=== PATIENT | male | born 1980 | race Caucasian/White ===

== ENCOUNTER → 2017-07-25 07:25 | Outpatient (CLI) | payer OTHER, SELFPAY ==
--- NOTE | 2017-07-25 07:29 | CT_ITS ---
STUDY: CT ABDOMEN WITH CONTRAST REASON FOR EXAM: Male, 37 years old. Epigastric pain. Umbilical hernia. RADIATION DOSAGE (If Supplied By Facility): CTDIvol = ( 15.61 ) mGy, DLP = ( 786.98 ) mGycm TECHNIQUE: Transaxial images were obtained post I.V. administration of 100 ml of Isovue 300 contrast, and with oral contrast. Sagittal and coronal images were reconstructed. Individualized dose optimization techniques were used for this CT. COMPARISON: None. FINDINGS: The visualized lung bases are unremarkable. The visualized portions of the heart are within normal limits. Normal liver. Normal gallbladder and extrahepatic biliary system. Normal spleen. Normal pancreas. Normal bilateral adrenal glands. Normal right kidney. Normal left kidney. There is a small hiatal hernia. Normal small intestine. Normal colon. The appendix is visualized and appears normal. Normal abdominal aorta. Normal inferior vena cava. Normal retroperitoneum. There is a small umbilical hernia containing fat. Marked degree of the space narrowing at the L4-L5 level CT/Abdomen WITH IV Contrast IMPRESSION: Small umbilical hernia containing fat. Electronically Signed: Tutu Hansen MD at 11:20 EDT Tel [phone], Service support ,
== END ==
PROVIDERS: Family Provider Family Medicine; PCP Family Medicine; Visit Provider Surgery
DX: K42.9 Umbilical hernia without obstruction or gangrene (principal)
CPT/HCPCS: 74160; Q9967

== ENCOUNTER → 2018-04-29 15:20 | Outpatient (CLI) | payer OTHER, SELFPAY ==
[2017-07-22 08:40] VITALS: BMI 29.9
[2018-04-29 19:32] LABS: Vitamin D,25 Hydroxy 19.4 ng/mL (29.95-100.01)
[2018-05-01 16:28] LABS: Endomysial Antibody IgA Negative (Negative); Immunoglobulin A 236 mg/dL (90-386); t-Transglutaminase IgA 2 U/mL (0-3)
--- OUTSIDE RECORDS SUMMARY | 2018-08-01 04:02 | XMS RPT_ITS ---
:1980 Author Organization OHIP Care Team Providers Name Role Phone Dami Dc Attending Unavailable Dami Dc Referring Unavailable Anna Mera Primary Care Unavailable Noe Lee Attending Unavailable Anna Mera Referring Unavailable Anna Mera Primary Care Unavailable Noe Lee Attending Unavailable Noe Lee Referring Unavailable Anna Mera Primary Care Unavailable PROBLEMS PROBLEMS DATE TYPE CONDITION / CODE ATTENDING STATUS SOURCE 07/22/2017 Unknown K42.9 - Umbilical Noe Lee Active [place] hernia without Community obstruction or Hospital gangrene / Repository K42.9(ICD-10) 07/22/2017 Unknown K43.2 - Noe Lee Active [place] Incisional hernia Community without Hospital obstruction or Repository gangrene / K43.2(ICD-10) 07/22/2017 Unknown R10.13 - Noe Lee Active [place] Epigastric pain / Community R10.13(ICD-10) Hospital Repository PROCEDURES PROCEDURES No Procedure Records FoundRESULTS RESULTS VITAMIN D,25 HYDROXY Collected: 04/29/2018 Status: F Source: [place]IL 3:27 PM [facility] REPOSITORY TYPE CODE TESTS RESULT OUT OF REFERENCE UNITS RANGE LAB L506.1000 29.95-100.01 ng/mL Low Vitamin D 19.4 25-OH Result Comment: Vitamin D 25(OH) Status Range Deficiency <20 ng/mL (50nmol/L) Insuffciency 20 - 30 ng/mL (50 - 75 nmol/L) Sufficiency 30 - 100 ng/mL (75 - 250 nmol/L) Toxicity >100 ng/mL (>250 nmol/L) Performed By: #### L506.1000 #### [facility] [address] [place], [place], [address] CELIAC DISEASE Collected: 04/29/2018 Status: F Source: NEIL PROFILE 3:27 PM [facility] REPOSITORY TYPE CODE TESTS RESULT OUT OF RANGE REFERENCE UNITS LAB L3200.1400 90-386 mg/dL Normal IMMUNO A 236 Result Comment: Performed at: - [facility] [id number] Bricklayer'S Assistant: Dami Mahmood PhD, Phone: [phone] LAB L3207.4745 0-3 U/mL Normal tTG IGA 2 Result Comment: Negative 0 - 3 Weak Positive 4 - 10 Positive >10 Tissue Transglutaminase (tTG) has been identified as the endomysial antigen. Studies have demonstr- ated that endomysial IgA antibodies have over 99% specificity for gluten sensitive enteropathy. LAB L3410.9169 Negative Normal ENDOMYSIAL IGA Negative Result Comment: Serum is slightly lipemic. Performed By: #### L3410.1050 #### [facility] (refer to report for specific site) refer to report for address and phone number ABDOMEN WITH IV Observed: 07/25/2017 Status: F Source: [place]IL CONTRAST 7:29 AM [facility] REPOSITORY [facility] Services [address] [place] [address] Abdomen WITH IV Contrast MR#: [id number] Acct: [id number] Name: WILDER GIBSON Rep #: [id number] : 1980 M 37 From: Tutu Hansen MD PCP: Anna Mera MD Status: REG CLI Study: Abdomen WITH IV Contrast Date of Exam: 07/25/17 Exam# [id number] Ordering Dr: Noe Lee MD STUDY: CT ABDOMEN WITH CONTRAST REASON FOR EXAM: Male, 37 years old. Epigastric pain. Umbilical hernia. RADIATION DOSAGE (If Supplied By Facility): CTDIvol = ( 15.61 ) mGy, DLP = ( 786.98 ) mGycm TECHNIQUE: Transaxial images were obtained post I.V. administration of 100 ml of Isovue 300 contrast, and with oral contrast. Sagittal and coronal images were reconstructed. Individualized dose optimization techniques were used for this CT. COMPARISON: None. FINDINGS: The visualized lung bases are unremarkable. The visualized portions of the heart are within normal limits. Normal liver. Normal gallbladder and extrahepatic biliary system. Normal spleen. Normal pancreas. Normal bilateral adrenal glands. Normal right kidney. Normal left kidney. There is a small hiatal hernia. Normal small intestine. Normal colon. The appendix is visualized and appears normal. Normal abdominal aorta. Normal inferior vena cava. Normal retroperitoneum. There is a small umbilical hernia containing fat. Marked degree of the space narrowing at the L4-L5 level CT/Abdomen WITH IV Contrast IMPRESSION: Small umbilical hernia containing fat. Electronically Signed: Tutu Hansen MD at 11:20 EDT Tel [phone], Service support , CC: Anna Mera MD; Noe Lee MD Ross Carrier Driver: Signed SURGERY VISIT REPORT Observed: 07/22/2017 Status: F Source: [place] 9:[address] 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 Is patient in pain?: Yes Allergies oxycodone HCl [From Percocet] Allergy (Verified 07/22/17 08:41) Other Medications ergocalciferol (vitamin D2) 2,000 unit tablet 2,000 unit PO QDAY 07/22/17 [History Confirmed 07/22/17] esomeprazole magnesium 20 mg capsule,delayed release 20 mg PO QDAY cap 07/22/17 [History Confirmed 07/22/17] mometasone-formoterol HFA 100 mcg-5 mcg/actuation aerosol inhaler 2 puff INHALATION BID 07/22/17 [History Confirmed 07/22/17] PFSH Medical History Asthma (Acute) Celiac disease (Acute) GERD (gastroesophageal reflux disease) (Acute) Surgical History S/P ACL repair (Acute) S/P MCL repair (Acute) Status post appendectomy (Acute) Family History Father Diabetes Mother Asthma Social History Smoking Status: Never smoker HPI HPI HPI: WILDER GIBSON, is a 37 M who presents to the office today for concern about a possible ventral incisional hernia at the umbilicus. He is been having 3 week history of a burning pain superior to the umbilicus as well as at the umbilicus. When he lies on his belly he feels a bulge. He points to the umbilicus but he also points to an area 5-6 cm superior to the umbilicus. 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 He denies nausea or vomiting or fever or chills or sweats. He recalls that he has had a previous laparoscopic appendectomy in approximately year 1999. He denies any recent trauma. He does chew tobacco. He has not had any imaging studies. He denies bright red blood per rectum or melena. ROS General General: Yes weight change; no appetite, fatigue, colon cancer, breast cancer or weakness HEENT HEENT: No difficulty swallowing, eye injury, eye surgery, swollen glands or hoarseness Endo Endocrine: No thyroid disease, diabetes mellitus, thyroid cancer, Hair loss, heat intolerance or cold intolerance Skin Skin: No rash or changing moles Breast Breast: No left breast lump, right breast lump, nipple discharge, breast pain, abnormal mammogram, abnormal US or breast enlargement Musc Musculoskeletal: No back problems, arthritis, rheumatoid arthritis, gout or joint pain Cardio Cardiovascular: No murmur, pacemaker, heart disease, atrial fibrillation, high blood pressure, heart attack, heart stent, palpitations, shortness of breat with exertion or chest pain Psych Psychiatric: No depression, anxiety or hearing voices Resp Respiratory: Yes shortness of breath, No sleep apnea, Yes cough, No COPD, Yes asthma, No emphysema, No wheezing Gastro Gastrointestinal: Yes abdominal pain, No nausea or vomiting, No diarrhea, No constipation, No blood in stool, Yes acid reflux, No hemorrhoids, No ulcers, No gallbladder problem, No black,tarry stools Arpit Hematologic: No blood thinners, No blood disorders, No bleeding, No anemia, No blood clots Neuro Neurologic: No system reviewed and no additional complaints, except as docu, No as per HPI, No abnormal walking, No abnormal hearing, No abnormal movements, No abnormal speech, No behavioral changes, No burning sensations, No confusion, No seizure-like activity, No unsteadiness, No dizziness, No localized weakness, No frequent falls, No headache(s), No lack of coordination, No loss of vision, No memory loss, No numbness, No other visual disturbances, No radiating pain, No restless legs, No sensory deficit, No fainting, No tingling, No tremor(s), No weakness, No other Exam Const General: cooperative, healthy appearing Nutritional Appearance: average body habitus Orientation: alert, oriented x3 HENMT Head: normal to inspection Eyes General: appearance normal, both eyes and all related structures Neck Neck: normal visual inspection Chest Chest palpation AND inspection: normal inspection of the chest Breast Palpation: No nipple discharge Resp Effort AND Inspection: normal respiratory effort Auscultation: clear to auscultation bilaterally Cardio Rate: regular rate Rhythm: regular rhythm Heart Sounds: no murmurs GI Palpation: soft, no hepatosplenomegaly Auscultation: normal bowel sounds Other: Small ventral incisional hernia at the superior aspect of the umbilicus. No erythema. Mild tenderness to deep palpation. Tenderness is noted approximately 5 cm superior to the umbilicus. I am not detecting a mass or bulge in that area. Bowel sounds are present and normal. Musc Cervical Spine: normal cervical lordosis Skin General: no rashes or lesions noted Neuro Cranial Nerves: CN's II-XI intact bilaterally Extrem General: no calf tenderness Psych Affect: normal affect Assessment AND Plan Problems 1. Incisional hernia, without obstruction or gangrene K43.2; K43.91 2. Epigastric pain R10.13 Plan Much of the patient's symptoms seem to be consistent with this comfort and a ventral incisional hernia at the superior aspect of his umbilicus. The patient however complains of tenderness superior to that area. He feels a fullness when he lies prone. I am recommending a CT scan of the abdomen. If that is unremarkable then I would recommend a incisional umbilical herniorrhaphy with mesh. He is aware of the technique, benefits, risks, alternatives. He has had an opportunity to ask and have questions answered. We will proceed with a CT and we will tentatively schedule for his ventral incisional herniorrhaphy with mesh. I appreciate the opportunity of assisting with surgical care Cc: Dr. Samaria Lee M.D., F.A.C.S. Orders Orders: Medications Discontinued: hydrocodone-acetaminophen 5-325 mg Discon1 - 2 tabs PO Q4H PRN PRN Pain Duyen Hood tinued Reason: Order Completed Coding Level of Care Code Off vis,new,level 3 Diagnoses Incisional hernia, without obstruction or gangrene K43.2; K43.91 Obstruction and gangrene presence: without obstruction or gangrene Epigastric pain R10.13 Abdominal location: epigastric 07/22/17 0919 <Electronically signed by Noe Lee MD> Date Noe Diaz Signature: Date (if applicable) CC: Anna Mera MD ALLERGIES ALLERGIES DATE TYPE / CODE NAME / CODE REACTION SEVERITY SOURCE 07/22/2017 Drug oxycodone Other Unknown [facility] Allergy/416 HCl/[id number](R Hospital 664485(SNOM XNORM) Repository ED CT) ENCOUNTERS ENCOUNTERS ADMIT/DISCHARGE ACCOUNT ADMITTING ENCOUNTER LOCATION SOURCE NUMBER CLASS 04/29/2018 [id number] Ambulatory [place] 9 [facility] ing:MTLAB Repository 07/25/2017 [id number] Ambulatory [place] 7 [facility] ing:CT Repository 07/22/2017/ [id number] Ambulatory BMSBuilding:B Neil 8 9 MS.WSA [facility] Repository PAYERS PAYERS ENCOUNTER GUARANTOR PAYER SUBSCRIBER SOURCE 04/29/2018 WILDER [place] Primary WILDER Anthony Neil [id number] TR Insurance:CORESOURCEP HASTINGSDOB: [address] Number: [id number] Hospital [address]Lji: [phone] [id number] Repository [phone] () Date:0313-10-89HL [address] [place] [id number]: 04/29/2018 Secondary NOT GIVENUNK Neil Insurance:SELF PAY [facility] Number: Effective Repository Date:2018-04-29 07/25/2017 Wilder Cruz Primary Wilder Anthony Trejo [id number] Insurance:CORESOURCEP HastingsDOB: [address] Number: [id number] Hospital [address]Ydb: [phone]) [id number] Repository [phone] () Date:2172-06-61PK [address] [address]KA: 07/25/2017 Secondary NOT GIVENUNK [place] Insurance:SELF PAY [facility] Number: Effective Repository Date:2017-07-22 07/22/2017 Wilder [place] Primary Wilder Trejo [id number] Insurance:[facility] Hasseaview hospitalsDOB: [address] Number: [id number] Hospital [id number]: [phone]) [id number] Repository [phone] () Date:9586-00-75AQ [address] [place] [address]ZC: 07/22/2017 Secondary NOT GIVENUNK Neil Insurance:SELF PAY [facility] Number: Effective Repository Date:2017-07-16
== END ==
PROVIDERS: Family Provider Family Medicine; PCP Family Medicine; Referring Provider Internal Medicine Gastroenterology; Visit Provider Internal Medicine Gastroenterology
DX: K90.0 Celiac disease (principal)
CPT/HCPCS: 36415; 82306; 82784; 83516; 86255

== ENCOUNTER → 2018-12-29 | Outpatient (CLI) | payer OTHER, SELFPAY ==
[2017-07-22 08:40] VITALS: BMI 29.9
[2018-12-29 12:41] LABS: Lyme Ab Screen Interpretation REF LAB
[2018-12-29 13:47] LABS: Absolute Lymphocyte Count 1.63 X10^3/uL (0.83-4.51); Absolute Neutrophil Count 2.8 X10^3/uL (2.0-7.7); Basophil# 0.06 X10^3/uL; Eosinophils% 13.7 % (0-5); Hematocrit 44.5 % (40-54); Hemoglobin 14.9 g/dL (13.0-16.5); Lymphocyte # 1.63 X10^3/ul (4.0); Mean Corp Hgb Conc 33.5 g/dL (32-36); Mean Corpuscular Volume 86.6 fL (80-94); Mean Platelet Vol. 9.5 fl (6.2-12.0); Monocyte# 0.53 X10^3/uL; Monocyte% 9.1 % (0-10); NRBC Flagged by Analyzer 0 % (0-5); Platelet Count 240 K/mm3 (150-450); RBC Distribution Width SD 40.8 fl (35.1-43.9); Red Blood Count 5.14 M/mm3 (4.6-6.2); White Blood Count 5.8 K/mm3 (4.4-11.0)
[2018-12-29 14:09] LABS: ALB/GLOB Ratio 1.1 RATIO (0.9-2.4); AST(SGOT) 15 U/L (15-37); Alanine Aminotransfer ALT/SGPT 36 U/L (16-61); Albumin, Serum 3.9 g/dL (3.2-5.0); Alkaline Phosphatase 81 U/L (45-117); Anion Gap 4 (5-15); BUN 15 mg/dL (7-18); BUN/Creat Ratio 15.5 RATIO (10-20); Calcium,Total 9.1 mg/dL (8.5-10.1); Chloride 108 mmol/L (98-107); Creatinine, Serum 0.97 mg/dL (0.70-1.30); EST Glomerular Filtration Rate 93 mL/min (>60); Est Glom Filt Rate - Afr Amer 113 mL/min (>60); Globulin 3.6 g/dL (2.2-4.2); Glucose 92 mg/dL (74-106); Protein, Total 7.5 g/dL (6.4-8.2); Sodium Level 140 mmol/L (136-145); Thyroid Stim Hormone (TSH) 1.09 uIU/mL (0.358-3.74)
[2018-12-31 11:23] LABS: Lyme Scn Total Ab w/Rflx <0.91 ISR (0.00-0.90)
== END | disposition home or self-care (01) ==
LOC: MTLAB 12:38
PROVIDERS: Family Provider Family Medicine; PCP Family Medicine; Referring Provider Family Medicine; Visit Provider Family Medicine
DX: R00.2 Palpitations (principal); W57.XXXA Bitten or stung by nonvenomous insect and other nonvenomous arthropods, initial encounter
CPT/HCPCS: 36415; 80053; 84443; 85025; 86618

== ENCOUNTER → 2019-01-01 | Outpatient (CLI) | payer OTHER, SELFPAY ==
[2017-07-22 08:40] VITALS: BMI 29.9
--- NOTE | 2019-01-01 09:36 | RAD_ITS ---
CLINICAL HISTORY: Male, 38 years old. Dysphagia PROCEDURE: Esophagram Technique: Multiple fluoroscopic assessment performed after administration of double contrast medium, followed by single contrast medium with images acquired along the esophagus. Findings: Single and also double contrast study of the esophagus demonstrate that there is unremarkable mucosal pattern of the esophagus, without evidence of intraluminal lesion or stricture. Overall unremarkable peristalsis through the esophagus. There is no evidence of Zenker's diverticulum proximally. There is no evidence of significant gastroesophageal reflux. A small sliding hiatal hernia is noted. Evaluation with a 0.5 inch barium pill demonstrates unremarkable peristalsis through the esophagus, with unremarkable emptying into the stomach without delay. RAD/Esophagus Only IMPRESSION: Unremarkable mucosal pattern of the esophagus. No evidence of focal stricture or narrowing. No evidence of Zenker's diverticulum. Small focus of sliding hiatal hernia is noted. Normal peristalsis of a 0.5 inch tablet through the esophagus and the gastroesophageal junction. No significant reflux observed at the GE junction. Electronically Signed: Praveen Dacosta MD at 14:00 EDT Tel [phone], Service support ,
== END | disposition home or self-care (01) ==
LOC: RAD 09:25
PROVIDERS: Family Provider Family Medicine; PCP Family Medicine; Referring Provider Internal Medicine Gastroenterology; Visit Provider Internal Medicine Gastroenterology
DX: R13.10 Dysphagia, unspecified (principal)
CPT/HCPCS: 74220

== ENCOUNTER → 2019-01-14 | Outpatient (CLI) | payer OTHER, SELFPAY ==
[2019-01-14 13:48] VITALS: BMI 29.9
[2019-01-14 16:13] LABS: Vitamin D,25 Hydroxy 48.2 ng/mL (29.95-100.01)
== END | disposition home or self-care (01) ==
PROVIDERS: Family Provider Family Medicine; PCP Family Medicine; Referring Provider Internal Medicine Gastroenterology; Visit Provider Internal Medicine Gastroenterology
DX: K90.0 Celiac disease (principal)
CPT/HCPCS: 36415; 82306

== ENCOUNTER → 2019-04-07 13:56 | Outpatient (CLI) | payer OTHER, SELFPAY ==
[2019-01-14 13:48] VITALS: BMI 29.9
--- NOTE | 2019-04-07 14:02 | BD_ITS ---
STUDY: DUAL ENERGY X-RAY ABSORPTIOMETRY / DXA REASON FOR EXAM: Male, 39 years old. History of celiac disease. No loss of height. TECHNIQUE: Bone Mineral Density (BMD) measurements of lumbar spine and bilateral hips were obtained. COMPARISON: Comparison is made with prior examination dated May 09, 2017. FINDINGS: Lumbar Spine (L1-L4): g/cm2 (1.515) / T-score (2.3) / Z-score (2.3) Findings are suggestive of normal bone density with a low fracture risk. Left Femur Total: g/cm2 (1.161) / T-score (0.4) / Z-score (0.6) Left Femoral Neck: g/cm2 (1.170) / T-score (0.8) / Z-score (1.0) Right Femur Total: g/cm2 (1.179) / T-score (0.4) / Z-score (0.7) Right Femoral Neck: g/cm2 (1.25) / T-score (1.4) / Z-score (1.6) The T-Scores on the most recent prior examination were: Lumbar Spine (L1-L4): There has been improvement of bone density since the previous examination. Left Femur Total: which represents an improvement of 2.8%. Right Femur Total: which represents an improvement of 1.0. BD/Dexa Bone Density Study IMPRESSION: The patient is considered normal as outlined below according to World Lang Organization (WHO) criteria with a low fracture risk. There has been improvement of bone density since the previous examination. Reference Information: The T-score is the number of standard deviations above or below the standard which is normal for young adults at their peak bone mineral density. The World Health Organization (WHO) interprets the T-scores as follows: Above -1 Normal bone density Between -1 and -2.5 Osteopenia Equal to / or below -2.5 Osteoporosis As a practical clinical guideline, osteopenia may be graded as follows: Mild -1 through -1.5 Moderate -1.6 through -2.0 Severe -2.1 through -2.4 The Z-score is the number of standard deviations above or below age-matched controls. A Z-score of less than -1.5 would be considered abnormal. References: 1. NIH Osteoporosis and Related Bone Diseases http://www.osteo.org 2. International Society for Clinical Densitometry http://www.iscd.org 3. National Osteoporosis Foundation http://www.nof.org Electronically Signed: Tutu Hansen, at 9:18 EST , Service support ,
== END ==
PROVIDERS: Family Provider Family Medicine; PCP Family Medicine; Referring Provider Internal Medicine Gastroenterology; Visit Provider Internal Medicine Gastroenterology
DX: K90.0 Celiac disease (principal)
CPT/HCPCS: 77080

== ENCOUNTER 2019-04-21 11:23 | Day surgery (SDC) | payer OTHER, SELFPAY ==
[2019-01-14 13:48] VITALS: BMI 29.9
--- NOTE | 2019-04-15 03:55 | HP_ITS ---
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 Is patient in pain?: No Allergies oxycodone HCl [From Percocet] Allergy (Verified 04/15/19 15:00) Other Medications budesonide DR - ER 3 mg capsule,delayed,extended release 3 mg PO DAILY 01/14/19 [History Confirmed 04/15/19] montelukast 10 mg tablet 10 mg PO QPM 01/14/19 [History Confirmed 04/15/19] omeprazole 20 mg capsule,delayed release 20 mg PO BID 01/14/19 [History Confirmed 04/15/19] Ergocalciferol [Vitamin D] 50,000 unit PO QMONTH 04/15/19 [History Confirmed 04/15/19] Mometasone/Formoterol [Dulera 100 Mcg/5 Mcg Inhaler] 2 puff IH BID 04/15/19 [History Confirmed 04/15/19] PFSH Medical History Asthma (Acute) Celiac disease (Acute) GERD (gastroesophageal reflux disease) (Acute) Umbilical hernia (Acute) Surgical History S/P ACL repair (Acute) S/P MCL repair (Acute) Status post appendectomy (Acute) Family History Father Diabetes Mother Asthma Social History (Updated 04/15/19 @ 15:55 by Neelam Bedoya PA-C) Smoking Status: Never smoker HPI HPI HPI: YING GIBSON, is a 39 M who presents to the office today for HPI HPI Surgical H&P: Yes HPI: YING GIBSON, is a 39 M who presents to the office today for an update history and physical for an upcoming procedure. Patient denies recent hospitalizations or illnesses. Patient denies previous complication with anesthesia. Patient denies increased pain at the umbilical site. He denies change in bowel habits. He denies previous myocardial infarction, stroke, blood clots. Patient's previous history per Dr. Galvan: YING GIBSON, is a 38 M who presents to the office today for Evaluation of a bulge and discomfort in his umbilical area. He has noted this over the last several months and is gradually gotten larger and more uncomfortable for him with physical activities. He has not had any change in his bowel or bladder habits. ROS General General: No weight change, appetite, fatigue, colon cancer, breast cancer or weakness HEENT HEENT: Yes difficulty swallowing; no eye injury, eye surgery, swollen glands or hoarseness Endo Endocrine: No thyroid disease, diabetes mellitus, thyroid cancer, Hair loss, heat intolerance or cold intolerance Skin Skin: No rash or changing moles Breast Breast: No left breast lump, right breast lump, nipple discharge, breast pain, abnormal mammogram, abnormal US or breast enlargement Musc Musculoskeletal: No back problems, arthritis, rheumatoid arthritis, gout or joint pain Cardio Cardiovascular: No murmur, pacemaker, heart disease, atrial fibrillation, high blood pressure, heart attack, heart stent, palpitations, shortness of breat with exertion or chest pain Psych Psychiatric: No depression, anxiety or hearing voices Resp Respiratory: No shortness of breath, No sleep apnea, No cough, No COPD, Yes asthma, No emphysema, No wheezing Gastro Gastrointestinal: No abdominal pain, No nausea or vomiting, No diarrhea, No constipation, No blood in stool, Yes acid reflux, Yes hemorrhoids, No ulcers, No gallbladder problem, No black,tarry stools Arpit Hematologic: No blood thinners, No blood disorders, No bleeding, No anemia, No blood clots Neuro Neurologic: No weakness Exam Const General: cooperative, healthy appearing, comfortable, no acute distress [facility] Head: normal to inspection Eyes General: appearance normal, both eyes and all related structures Neck Neck: normal visual inspection Neck mass: No Chest Breast Palpation: No nipple discharge Resp Effort & Inspection: normal respiratory effort Auscultation: clear to auscultation bilaterally Cardio Rate: regular rate Rhythm: regular rhythm Heart Sounds: no murmurs GI Inspection: normal to inspection Palpation: soft, hernia umbilical Auscultation: normal bowel sounds Skin General: no rashes or lesions noted Neuro General: no focal motor deficits, CN's II-XI intact bilaterally Extrem General: normal to inspection Psych Appearance: grossly normal Affect: normal affect Assessment & Plan Problems 1. Umbilical hernia without obstruction and without gangrene K42.[address] Galvan will plan to perform an umbilical hernia repair with mesh. Dr. Galvan will plan to place the mesh anterior to preperitoneal area. Procedure details, risks and benefits have been reviewed. Patient has had the opportunity to ask and have questions answered. Patient verbally understands and agrees with the plan. Coding Level of Care Code No Charge Diagnoses Umbilical hernia without obstruction and without gangrene K42.9 ??Obstruction and gangrene presence: without obstruction or gangrene Comment Update H&P 04/15/19 7835 <Electronically signed by Neelam anand PA-C> Date _ Neelam Bedoya PA-C
[2019-04-15 15:01] VITALS: BMI 29.9
[2019-04-21 12:02] VITALS: BP 140/89; PULSE 62; RESP 16; TEMP 37.1; O2SAT 94; BMI 31.7
[2019-04-21] MEDS: Lactated Ringers 1,000 ML 100 ML IV (12:11)
--- NOTE | 2019-04-21 13:25 | LIP_PTH ---
PATIENT: YING GIBSON LOC: [facility] U#:[id number] AGE/SX: 39/M ROOM: RE04/21/[address]: Dr. Gonzalo Galvan MD : 1980 BED: DIS: 04/21/2019 SPEC #: [id number] RECD: 04/21/19 17:18 STATUS: STEVE RECalin #: [id number] GINO: 04/21/19 13:[address]: Gonzalo Galvan DEPT: SURGICAL PATHOLOGY RECD BY: Víctor Rodríguez ENTERED: 04/22/19 09:55 SP TYPE: LIPOMA OTHR DR: Dr. Anna Mera MD Tissues: Soft tissues, NOS Procedures: Surgery Specimen Level III HEADER OPERATION: Umbilical hernia repair, no mesh PRE-OP DIAGNOSIS: Umbilical hernia without obstruction and without gangrene K42.9 TISSUE SUBMITTED: Lipoma MICROSCOPIC DIAGNOSIS Lipoma, excision: Mature adipose tissue consistent with lipoma. AM:aníbal 04/23/19 MICROSCOPIC DESCRIPTION Slides are reviewed. GROSS DESCRIPTION Received in fixative is one container labeled with the patient name and designated lipoma. The specimen consists of a piece of yellow adipose tissue measuring 1 x 0.5 x 0.3 cm. The entire specimen is submitted in one cassette. / SJ:aníbal 04/22/19 TC: 1 CPT: 56867
--- NOTE | 2019-04-21 13:33 | PCM.HP.BLA ---
History and Physical Date of Admission: 04/21/19 [facility] Medical Records Department [address] [place] [address] History and Physical 04/15/19 0355 MR#: [id number] Acct: [id number] Name: YING GIBSON Rep #: [id number] : 1980 39 From: Neelam Bedoya PA-C PCP: Anna Mera MD Status: PRE SDC Location: SDC Intake Vital Signs 04/15/19 Body Mass Index (BMI) 29.9 04/15/19 Height 5 ft 11 in 04/15/19 Weight: 226 lb 4 oz 04/15/19 Body Mass Index (BMI) 31.5 04/15/19 Blood Pressure 153/81 H 04/15/19 Blood Pressure Location Rt brachial 04/15/19 Blood Pressure Position Sitting 04/15/19 Respiratory Rate 20 H 04/15/19 Pulse Rate 85 04/15/19 Pulse Ox 96 Intake Visit Reasons: update h&p umbilical hernia repair 12- at 11am Chief Complaint: update H&P for umbilical hernia 12 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: No Is patient in pain?: No Allergies oxycodone HCl [From Percocet] Allergy (Verified 04/15/19 15:00) Other Medications budesonide DR - ER 3 mg capsule,delayed,extended release 3 mg PO DAILY 01/14/19 [History Confirmed 04/15/19] montelukast 10 mg tablet 10 mg PO QPM 01/14/19 [History Confirmed 04/15/19] omeprazole 20 mg capsule,delayed release 20 mg PO BID 01/14/19 [History Confirmed 04/15/19] Ergocalciferol [Vitamin D] 50,000 unit PO QMONTH 04/15/19 [History Confirmed 04/15/19] Mometasone/Formoterol [Dulera 100 Mcg/5 Mcg Inhaler] 2 puff IH BID 04/15/19 [History Confirmed 04/15/19] PFSH Medical History Asthma (Acute) Celiac disease (Acute) GERD (gastroesophageal reflux disease) (Acute) Umbilical hernia (Acute) Surgical History S/P ACL repair (Acute) S/P MCL repair (Acute) Status post appendectomy (Acute) Family History Father Diabetes Mother Asthma Social History (Updated 04/15/19 @ 15:55 by Neelam Bedoya PA-C) Smoking Status: Never smoker HPI HPI HPI: YING GIBSON, is a 39 M who presents to the office today for HPI HPI Surgical H&P: Yes HPI: YING GIBSON, is a 39 M who presents to the office today for an update history and physical for an upcoming procedure. Patient denies recent hospitalizations or illnesses. Patient denies previous complication with anesthesia. Patient denies increased pain at the umbilical site. He denies change in bowel habits. He denies previous myocardial infarction, stroke, blood clots. Patient's previous history per Dr. Galvan: YING GIBSON, is a 38 M who presents to the office today for Evaluation of a bulge and discomfort in his umbilical area. He has noted this over the last several months and is gradually gotten larger and more uncomfortable for him with physical activities. He has not had any change in his bowel or bladder habits. ROS General General: No weight change, appetite, fatigue, colon cancer, breast cancer or weakness HEENT HEENT: Yes difficulty swallowing; no eye injury, eye surgery, swollen glands or hoarseness Endo Endocrine: No thyroid disease, diabetes mellitus, thyroid cancer, Hair loss, heat intolerance or cold intolerance Skin Skin: No rash or changing moles Breast Breast: No left breast lump, right breast lump, nipple discharge, breast pain, abnormal mammogram, abnormal US or breast enlargement Musc Musculoskeletal: No back problems, arthritis, rheumatoid arthritis, gout or joint pain Cardio Cardiovascular: No murmur, pacemaker, heart disease, atrial fibrillation, high blood pressure, heart attack, heart stent, palpitations, shortness of breat with exertion or chest pain Psych Psychiatric: No depression, anxiety or hearing voices Resp Respiratory: No shortness of breath, No sleep apnea, No cough, No COPD, Yes asthma, No emphysema, No wheezing Gastro Gastrointestinal: No abdominal pain, No nausea or vomiting, No diarrhea, No constipation, No blood in stool, Yes acid reflux, Yes hemorrhoids, No ulcers, No gallbladder problem, No black,tarry stools Arpit Hematologic: No blood thinners, No blood disorders, No bleeding, No anemia, No blood clots Neuro Neurologic: No weakness Exam Const General: cooperative, healthy appearing, comfortable, no acute distress HENMT Head: normal to inspection Eyes General: appearance normal, both eyes and all related structures Neck Neck: normal visual inspection Neck mass: No Chest Breast Palpation: No nipple discharge Resp Effort & Inspection: normal respiratory effort Auscultation: clear to auscultation bilaterally Cardio Rate: regular rate Rhythm: regular rhythm Heart Sounds: no murmurs GI Inspection: normal to inspection Palpation: soft, hernia umbilical Auscultation: normal bowel sounds Skin General: no rashes or lesions noted Neuro General: no focal motor deficits, CN's II-XI intact bilaterally Extrem General: normal to inspection Psych Appearance: grossly normal Affect: normal affect Assessment & Plan Problems 1. Umbilical hernia without obstruction and without gangrene K42.[address] Galvan will plan to perform an umbilical hernia repair with mesh. Dr. Galvan will plan to place the mesh anterior to preperitoneal area. Procedure details, risks and benefits have been reviewed. Patient has had the opportunity to ask and have questions answered. Patient verbally understands and agrees with the plan. Coding Level of Care Code No Charge Diagnoses Umbilical hernia without obstruction and without gangrene K42.9 ??Obstruction and gangrene presence: without obstruction or gangrene Comment Update H&P 04/15/19 3745 <Electronically signed by Neelam Bedoya PA-C> Date Neelam Bedoya PA-C 04/16/19 1510 <Electronically signed by Neelam Bedoya PA-C> Date: Time: Neelam Bedoya PA-C CC: Neelam Bedoya PA-C; Anna Mera MD ~ Date Dictated: 04/15/19 0355 Date Transcribed: 04/16/19 110 Hospital Superintendent: OFELIA Signed I have re-examined the patient. There are no clinical changes since date of exam.
[2019-04-21] MEDS: Cefazolin 2 GM in 0.9% Normal Saline 100 ML IV (14:07)
--- NOTE | 2019-04-21 14:35 | PCM.OPRPT ---
Problem List (1) Umbilical hernia without mention of obstruction or gangrene Status: Acute Qualifiers: Obstruction and gangrene presence: without obstruction or gangrene Qualified Code(s): K42.9 - Umbilical hernia without obstruction or gangrene Report of Operation Date of Procedure: 04/21/19 Pre-Operative Diagnosis: Umbilical hernia without obstruction or gangrene Post-Operative Diagnosis: Same Surgery/Procedure Performed:: Umbilical hernia repair without mesh Type of Anesthesia:: General Anesthesiologist: Elan Whiting Specimen's removed: Preperitoneal fat Estimated Blood Loss (mL): < 25 cc Fluids Replaced: 300 cc lr Description of Procedure: Patient was brought into the operating room placed in the supine position. Under excellent general endotracheal ovation abdomen was sterilely prepped and draped in usual fashion. Local was injected above the umbilicus a curvilinear incision was made. Dissection was carried down to the fascia a fatty defect was protruding from the umbilicus the umbilical defect itself was 3 mm at best I transected the preperitoneal fat placed the defect back into the preperitoneal area and then I closed this defect with a single suture of [id number] of #1 Nurolon. The hole was completely closed. I do not feel that there was any need to place mesh with such a small hernia. Local was injected. The wound was brought together with subcu of 2-0 Vicryl. Deep dermals of 3-0 Vicryl. Then a running 4-0 Monocryl Dermabond was applied sterile dressings were applied and the patient tolerated the procedure well. - Admit VTE Documentation VTE Present on Admission: No VTE Mechan Device Prophylaxis: SCD's VTE Pharm Prophylaxis ordered?: No Reason prophylaxis not ordered:: Treatment Not Indicated
--- NOTE | 2019-04-21 14:41 | PCM.DC.HER ---
Discharge Diet: Light diet - advance as tolerated Discharge Activity: Return to Normal Activity, May Drive - when you are no longer taking narcotic pain medications., May Shower - with the bandage in place 1-2 days after surgery. Lifting Restrictions: 20 pounds for 8 weeks. Additional Activity Instructions:: Climbing stairs is fine, walking is encouraged. Sitting in bed may be uncomfortable. Sitting up using your lateral muscles (sitting up sideways) is usually more comfortable. Do not drive, work heavy equipment of sign legal documents for 24 hours. If your hernia repair was an ingunial repair, you may have scrotal swelling, an ice pack and/or athletic support can provide more comfort. Pain medications may cause nausea, you should typically eat light foods as you take your pain medications. Pain medications may also cause constipation. If you have difficulty with this, discuss with your doctor. Call your doctor if your incision/area has: Continuous Slow Oozing, Sudden Increased Bleeding, Increased Pain/ Swelling, Increased Redness, Foul Smelling Discharge Call your doctor if you observe: Fever of 101 or Higher Suture Line Care: Avoid Pulling/Pushing, Avoid Pinching/Bending Additional Dressing/Incision Instructions:: Leave the operative bandage on for 2-3 days. When you remove the bandage, leave the steri-strips on place until your follow up appointment or they fall off. Allergies/Adverse Reactions: Allergies oxycodone HCl [From Percocet] Allergy (Verified 04/15/19 15:00) Other Medications to take at Discharge budesonide DR - ER 3 mg capsule,delayed,extended release 3 mg PO DAILY 01/14/19 montelukast 10 mg tablet 10 mg PO QPM 01/14/19 omeprazole 20 mg capsule,delayed release 20 mg PO BID 01/14/19 Ergocalciferol [Vitamin D] 50,000 unit PO QMONTH 04/15/19 Mometasone/Formoterol [Dulera 100 Mcg/5 Mcg Inhaler] 2 puff IH BID 04/15/19 Hydrocodone Bitart/Apap 5-325 [[place] 5MG-325MG] 1 - 2 tab PO Q4H PRN PRN 7 Days #30 tab 04/21/19 Hydrocodone Bitart/Apap 5-325 [[place] 5MG-325MG] 1 - 2 tablet PO Q4H PRN PRN 7 Days #30 tablet 12/10/19 The following prescriptions were given: Hydrocodone Bitart/Apap 5-325 [[place] 5MG-325MG] 1 - 2 tab PO Q4H PRN PRN 7 Days #30 tab PRN Reason: Pain Hydrocodone Bitart/Apap 5-325 [[place] 5MG-325MG] 1 - 2 tablet PO Q4H PRN PRN 7 Days #30 tablet PRN Reason: Pain Transmission Status: Sent to [facility] Primary Care Physician: Anna Mera MD [Primary Care Provider] - Test Results: Test results from this visit will be discussed in further detail at your follow-up appointment, if applicable. Please Follow Up With: Gonzalo Galvan MD - [phone] When: Plan to have a follow up appointment in 7 days. Call to schedule.
[2019-04-21] MEDS: Bupivacaine Mpf 0.5% 30 ML VIAL (14:45)
[2019-04-21 15:00] VITALS: BP 140/89; BP 142/94; PULSE 73; RESP 16; TEMP 36.9; O2SAT 93
[2019-04-21 15:15] VITALS: BP 140/89; BP 147/88; PULSE 62; RESP 16; O2SAT 96
[2019-04-21 15:30] VITALS: BP 140/89; BP 146/84; PULSE 63; RESP 16; O2SAT 94
[2019-04-21 15:41] VITALS: BP 140/89; BP 150/92; PULSE 67; RESP 16; TEMP 36.2; O2SAT 95
[2019-04-21 16:17] VITALS: BP 140/89
== END 2019-04-21 16:28 | disposition home or self-care (01) ==
LOC: SDC 11:23 → AC 11:26
PROVIDERS: Family Provider Family Medicine; PCP Family Medicine; Referring Provider Surgery; Visit Provider Surgery
PROC: (CPT 49585; principal; 2019-04-21 13:10)
DX: K42.9 Umbilical hernia without obstruction or gangrene (principal); J45.909 Unspecified asthma, uncomplicated; K21.9 Gastro-esophageal reflux disease without esophagitis; K90.0 Celiac disease; Z79.899 Other long term (current) drug therapy
CPT/HCPCS: 49585; 88304; J7120; J2405

== ENCOUNTER → 2019-06-19 10:06 | Outpatient (CLI) | payer OTHER, SELFPAY ==
--- NOTE | 2019-06-19 10:09 | RAD_ITS ---
STUDY: X-RAY CHEST REASON FOR EXAM: Male, 39 years old. bronchitis TECHNIQUE: Frontal and lateral views of the chest were performed COMPARISON: 21 December 2011 FINDINGS: There is abnormal right heart contour and right middle lobe opacity on the lateral view. There is no pneumothorax, pulmonary edema, pleural effusions or cardiac megaly. Osseous structures are intact. RAD/Chest PA and Lateral IMPRESSION: 1. Presumed right middle lobe pneumonia. Recommend short-term follow-up for further evaluation and confirmation. Suggested follow-up interval is 2 weeks.. Electronically Signed: Susie Perez, at 10:31 EST Tel , Service support ,
== END ==
PROVIDERS: PCP Family Medicine; Referring Provider Family Medicine; Visit Provider Family Medicine
DX: J40 Bronchitis, not specified as acute or chronic (principal)
CPT/HCPCS: 71046

== ENCOUNTER → 2021-03-09 12:21 | Outpatient (CLI) | payer OTHER, SELFPAY ==
[2021-03-09 15:14] LABS: Absolute Neutrophil Count 3.1 X10^3/uL (2.0-7.7); Basophil# 0.05 X10^3/uL; Eosinophil# 0.08 X10^3/uL; Eosinophils% 1.6 % (0-5); Hematocrit 46.4 % (40-54); Lymphocyte % 27.5 % (19-41); Mean Corp Hgb Conc 32.3 g/dL (32-36); Mean Corpuscular Hgb 28.5 pg (27.0-32.0); Mean Corpuscular Volume 88.2 fL (80-94); Mean Platelet Vol. 9.8 fl (6.2-12.0); Monocyte# 0.45 X10^3/uL; Monocyte% 8.8 % (0-10); NRBC Flagged by Analyzer 0 % (0-5); Neutrophil % 60.9 % (47-70); Platelet Count 295 K/mm3 (150-450); RBC Distribution Width CV 12.8 % (11.6-14.6); RBC Distribution Width SD 41.2 fl (35.1-43.9); Red Blood Count 5.26 M/mm3 (4.6-6.2); White Blood Count 5.1 K/mm3 (4.4-11.0)
[2021-03-09 15:32] LABS: ALB/GLOB Ratio 1.1 RATIO (0.9-2.4); AST(SGOT) 21 U/L (15-37); Alanine Aminotransfer ALT/SGPT 44 U/L (16-61); Albumin, Serum 4.2 g/dL (3.2-5.0); Alkaline Phosphatase 77 U/L (45-117); Anion Gap 8 (5-15); BUN 18 mg/dL (7-18); BUN/Creat Ratio 18.5 RATIO (10-20); Calcium,Total 9.6 mg/dL (8.5-10.1); Chloride 106 mmol/L (98-107); Cholesterol 264 mg/dL (200); Creatinine, Serum 0.97 mg/dL (0.70-1.30); EST Glomerular Filtration Rate 91 mL/min (>60); Est Glom Filt Rate - Afr Amer 111 mL/min (>60); Globulin 3.7 g/dL (2.2-4.2); Glucose 102 mg/dL (74-106); High Density Lipoprotein 50 mg/dL; Potassium 3.9 mmol/L (3.5-5.1); Protein, Total 7.9 g/dL (6.4-8.2); Sodium Level 139 mmol/L (136-145); T4 Free Direct 0.94 ng/dL (0.76-1.46); Thyroid Stim Hormone (TSH) 0.66 uIU/mL (0.358-3.74); Triglycerides 66 mg/dL; Very Low Density Lipoprotein 13 mg/dL (5-40)
[2021-03-09 15:42] LABS: Vitamin B12 737 pg/mL (211-911); Vitamin D,25 Hydroxy 93.4 ng/mL
[2021-03-09 17:47] LABS: Hemoglobin A1c 5.9 % (3.8-5.6)
== END ==
PROVIDERS: PCP Family Medicine; Referring Provider Family Medicine; Visit Provider Family Medicine
DX: E55.9 Vitamin D deficiency, unspecified (principal); E66.9 Obesity, unspecified; R73.03 Prediabetes; R53.83 Other fatigue
CPT/HCPCS: 36415; 80053; 80061; 82306; 82607; 83036; 84439; 84443; 85025

== ENCOUNTER 2021-07-13 16:00 | Outpatient (CLI) | payer OTHER, SELFPAY ==
--- NOTE | 2021-07-13 16:03 | BD_ITS ---
STUDY: DUAL ENERGY X-RAY ABSORPTIOMETRY / DXA REASON FOR EXAM: Male, 41 years old. K90.0. History of celiac disease. TECHNIQUE: Bone Mineral Density (BMD) measurements of lumbar spine and bilateral hips were obtained. COMPARISON: Comparison is made with prior examination dated 04/07/2019. FINDINGS: Lumbar Spine (L1-L4): g/cm2 (1.083) / T-score (0.1) / Z-score (0.1) Findings are suggestive of normal bone density with a low fracture risk. Left Femur Total: g/cm2 (1.100) / T-score (0.4) / Z-score (0.6) Left Femoral Neck: g/cm2 (0.971) / T-score (0.3) / Z-score (0.8) Right Femur Total: g/cm2 (1.100) / T-score (0.4) / Z-score (0.6) Right Femoral Neck: g/cm2 (1.027) / T-score (0.7) / Z-score (1.2) The T-Scores on the most recent prior examination were: Lumbar Spine (L1-L4): There has been worsening of bone density since the previous examination. Left Femur Total: which represents an improvement of 0.8%. Right Femur Total: which represents a worsening of 0.7%. BD/Dexa Bone Density Study IMPRESSION: The patient is considered normal as outlined below according to World Lang Organization (WHO) criteria with a low fracture risk. There has been worsening of bone density since the previous examination. Reference Information: The T-score is the number of standard deviations above or below the standard which is normal for young adults at their peak bone mineral density. The World Health Organization (WHO) interprets the T-scores as follows: Above -1 Normal bone density Between -1 and -2.5 Osteopenia Equal to / or below -2.5 Osteoporosis As a practical clinical guideline, osteopenia may be graded as follows: Mild -1 through -1.5 Moderate -1.6 through -2.0 Severe -2.1 through -2.4 The Z-score is the number of standard deviations above or below age-matched controls. A Z-score of less than -1.5 would be considered abnormal. References: 1. NIH Osteoporosis and Related Bone Diseases www osteo.org 2. International Society for Clinical Densitometry www iscd.org 3. National Osteoporosis Foundation www nof.org Electronically Signed: Tutu Hansen MD at 14:00 EST ,
== END 2021-07-13 23:59 | disposition home or self-care (01) ==
LOC: OPBD 16:01
PROVIDERS: PCP Family Medicine; Visit Provider Internal Medicine Gastroenterology
DX: K90.0 Celiac disease (principal)
CPT/HCPCS: 77080

== ENCOUNTER 2021-08-09 13:40 | Outpatient (CLI) | payer OTHER, SELFPAY ==
[2021-08-09 15:33] LABS: ALB/GLOB Ratio 1.3 RATIO (0.9-2.4); AST(SGOT) 23 U/L (15-37); Alanine Aminotransfer ALT/SGPT 40 U/L (16-61); Albumin, Serum 4.2 g/dL (3.2-5.0); Alkaline Phosphatase 80 U/L (45-117); Anion Gap 8 (5-15); BUN 17 mg/dL (7-18); BUN/Creat Ratio 19.1 RATIO (10-20); Calcium,Total 9.5 mg/dL (8.5-10.1); Chloride 105 mmol/L (98-107); Cholesterol 267 mg/dL (200); Creatinine, Serum 0.89 mg/dL (0.70-1.30); EST Glomerular Filtration Rate 101 mL/min (>60); Est Glom Filt Rate - Afr Amer 122 mL/min (>60); Globulin 3.3 g/dL (2.2-4.2); Glucose 113 mg/dL (74-106); High Density Lipoprotein 48 mg/dL; Potassium 3.9 mmol/L (3.5-5.1); Protein, Total 7.5 g/dL (6.4-8.2); Sodium Level 140 mmol/L (136-145); Triglycerides 135 mg/dL; Very Low Density Lipoprotein 27 mg/dL (5-40)
[2021-08-09 15:42] LABS: Hemoglobin A1c 6.1 % (3.8-5.6)
== END 2021-08-09 23:59 | disposition home or self-care (01) ==
LOC: MFPLAB 13:44
PROVIDERS: PCP Family Medicine; Referring Provider Family Medicine; Visit Provider Family Medicine
DX: E78.5 Hyperlipidemia, unspecified (principal); R73.03 Prediabetes
CPT/HCPCS: 36415; 80053; 80061; 83036

== ENCOUNTER → 2021-10-02 | Outpatient (CLI) | payer OTHER, SELFPAY ==
[2021-10-02 15:55] LABS: ALB/GLOB Ratio 1.2 RATIO (0.9-2.4); AST(SGOT) 210 U/L (15-37); Alanine Aminotransfer ALT/SGPT 216 U/L (16-61); Albumin, Serum 3.7 g/dL (3.2-5.0); Alkaline Phosphatase 119 U/L (45-117); Anion Gap 6 (5-15); BUN 14 mg/dL (7-18); BUN/Creat Ratio 13.7 RATIO (10-20); CPK Total, Creatine Kinase 143 U/L (39-308); Chloride 109 mmol/L (98-107); Creatinine, Serum 1.02 mg/dL (0.70-1.30); EST Glomerular Filtration Rate 86 mL/min (>60); Est Glom Filt Rate - Afr Amer 104 mL/min (>60); Globulin 3.1 g/dL (2.2-4.2); Glucose 118 mg/dL (74-106); Protein, Total 6.8 g/dL (6.4-8.2); Sodium Level 141 mmol/L (136-145)
== END | disposition home or self-care (01) ==
LOC: MFPLAB 14:30
PROVIDERS: PCP Family Medicine; Visit Provider Family Medicine
DX: R25.2 Cramp and spasm (principal)
CPT/HCPCS: 36415; 80053; 82550

== ENCOUNTER → 2021-10-03 | Outpatient (CLI) | payer OTHER, SELFPAY ==
[2021-10-04 14:48] LABS: Hepatitis B Surface Antibody Non-Reactive
[2021-10-05 08:10] LABS: HEPATITIS B SURFACE AG Negative (Negative); Hep C Antibodies 0.1 s/co ratio (0.0-0.9); Hepatitis A IgM Antibody Negative (Negative); Hepatitis B Core AB IgM Negative (Negative)
[2021-10-05 09:33] LABS: Hepatitis A AB, Total Negative (Negative)
== END | disposition home or self-care (01) ==
LOC: MFPLAB 16:22
PROVIDERS: PCP Family Medicine; Visit Provider Family Medicine
DX: R79.89 Other specified abnormal findings of blood chemistry (principal)
CPT/HCPCS: 36415; 80074; 86706; 86708

== ENCOUNTER → 2021-12-11 | Outpatient (CLI) | payer OTHER, SELFPAY ==
[2021-12-11 10:06] LABS: Absolute Lymphocyte Count 2.82 X10^3/uL (0.83-4.51); Absolute Neutrophil Count 2.7 X10^3/uL (2.0-7.7); Basophil# 0.03 X10^3/uL; Basophil% 0.5 % (0-1); Eosinophil# 0.23 X10^3/uL; Eosinophils% 3.5 % (0-5); Hematocrit 44.7 % (40-54); Hemoglobin 14.7 g/dL (13.0-16.5); Lymphocyte # 2.82 X10^3/ul (0.83-4.51); Lymphocyte % 43.4 % (19-41); Mean Corp Hgb Conc 32.9 g/dL (32-36); Mean Corpuscular Hgb 28.7 pg (27.0-32.0); Mean Corpuscular Volume 87.3 fL (80-94); Mean Platelet Vol. 9.1 fl (6.2-12.0); Monocyte# 0.67 X10^3/uL; Monocyte% 10.3 % (0-10); NRBC Flagged by Analyzer 0 % (0-5); Neutrophil # 2.74 X10^3/uL (2.7-7.7); Neutrophil % 42.1 % (47-70); Platelet Count 232 K/mm3 (150-450); RBC Distribution Width CV 13.2 % (11.6-14.6); RBC Distribution Width SD 42.3 fl (35.1-43.9); Red Blood Count 5.12 M/mm3 (4.6-6.2); White Blood Count 6.5 K/mm3 (4.4-11.0)
[2021-12-11 10:52] LABS: ALB/GLOB Ratio 1.2 RATIO (0.9-2.4); AST(SGOT) 23 U/L (15-37); Alanine Aminotransfer ALT/SGPT 37 U/L (16-61); Alkaline Phosphatase 69 U/L (45-117); Anion Gap 4 (5-15); BUN 20 mg/dL (7-18); BUN/Creat Ratio 21.6 RATIO (10-20); Calcium,Total 9.2 mg/dL (8.5-10.1); Chloride 108 mmol/L (98-107); Cholesterol 197 mg/dL (200); Creatinine, Serum 0.92 mg/dL (0.70-1.30); EST Glomerular Filtration Rate 96 mL/min (>60); Est Glom Filt Rate - Afr Amer 117 mL/min (>60); Globulin 3.3 g/dL (2.2-4.2); Glucose 116 mg/dL (74-106); High Density Lipoprotein 32 mg/dL; Potassium 3.9 mmol/L (3.5-5.1); Protein, Total 7.3 g/dL (6.4-8.2); Sodium Level 139 mmol/L (136-145); Triglycerides 176 mg/dL; Very Low Density Lipoprotein 35 mg/dL (5-40)
== END | disposition home or self-care (01) ==
LOC: MFPLAB 09:35
PROVIDERS: PCP Family Medicine; Visit Provider Family Medicine
DX: E78.5 Hyperlipidemia, unspecified (principal); R73.03 Prediabetes
CPT/HCPCS: 36415; 80053; 80061; 83036; 85025

== ENCOUNTER → 2022-06-13 | Outpatient (CLI) | payer OTHER, SELFPAY ==
[2022-06-13 18:02] LABS: Absolute Lymphocyte Count 2.28 X10^3/uL (0.83-4.51); Absolute Neutrophil Count 4.2 X10^3/uL (2.0-7.7); Basophil# 0.05 X10^3/uL; Basophil% 0.7 % (0-1); Eosinophils% 3.9 % (0-5); Hematocrit 44.6 % (40-54); Hemoglobin 14.6 g/dL (13.0-16.5); Lymphocyte # 2.28 X10^3/ul (0.83-4.51); Lymphocyte % 29.9 % (19-41); Mean Corp Hgb Conc 32.7 g/dL (32-36); Mean Corpuscular Hgb 28.9 pg (27.0-32.0); Mean Corpuscular Volume 88.3 fL (80-94); Mean Platelet Vol. 9.4 fl (6.2-12.0); Monocyte# 0.78 X10^3/uL; Monocyte% 10.2 % (0-10); NRBC Flagged by Analyzer 0 % (0-5); Neutrophil # 4.18 X10^3/uL (2.7-7.7); Neutrophil % 54.9 % (47-70); Platelet Count 282 K/mm3 (150-450); RBC Distribution Width CV 12.3 % (11.6-14.6); RBC Distribution Width SD 39.9 fl (35.1-43.9); Red Blood Count 5.05 M/mm3 (4.6-6.2); White Blood Count 7.6 K/mm3 (4.4-11.0)
[2022-06-13 18:25] LABS: Anion Gap 8 (5-15); BUN 21 mg/dL (7-18); Calcium,Total 9.4 mg/dL (8.5-10.1); Chloride 105 mmol/L (98-107); Creatinine, Serum 0.91 mg/dL (0.70-1.30); EST Glomerular Filtration Rate 98 mL/min (>60); Est Glom Filt Rate - Afr Amer 118 mL/min (>60); Glucose 146 mg/dL (74-106); PSA,Total- Diagnostic 0.62 ng/mL (0.0-4.0); Potassium 3.9 mmol/L (3.5-5.1); Sodium Level 140 mmol/L (136-145)
== END | disposition home or self-care (01) ==
LOC: MFPLAB 15:43
PROVIDERS: PCP Family Medicine; Referring Provider Family Medicine; Visit Provider Family Medicine
DX: E78.5 Hyperlipidemia, unspecified (principal); R25.2 Cramp and spasm; R73.03 Prediabetes
CPT/HCPCS: 36415; 80048; 83036; 84153; 85025

== ENCOUNTER → 2022-07-02 | Outpatient (CLI) | payer OTHER, SELFPAY ==
[2022-07-02 17:38] LABS: Vitamin D,25 Hydroxy 56.9 ng/mL
[2022-07-04 15:08] LABS: Endomysial Antibody IgA Negative (Negative)
[2022-07-04 20:37] LABS: Immunoglobulin A 229 mg/dL (90-386); t-Transglutaminase IgA 12 U/mL (0-3)
== END | disposition home or self-care (01) ==
PROVIDERS: PCP Family Medicine; Referring Provider Internal Medicine Gastroenterology; Visit Provider Internal Medicine Gastroenterology
DX: E55.9 Vitamin D deficiency, unspecified (principal); K90.0 Celiac disease
CPT/HCPCS: 36415; 82306; 82784; 83516; 86255

== ENCOUNTER → 2022-07-11 | Outpatient (CLI) | payer OTHER, SELFPAY ==
--- NOTE | 2022-07-11 17:18 | STRESSREP ---
Stress Test Report Exercise myocardial perfusion stress test. 42-year-old man with a history of chest pain Stress protocol: Resting EKG demonstrates sinus bradycardia with a rate of 50 bpm resting blood pressure is 122/82 mmHg. The patient exercised according to the regular Abhinav protocol for a total duration of 9 minutes attaining a maximum heart rate of 171 bpm which was 95% of maximum predicted heart rate; the maximum workload was 10.4 metabolic equivalents. At rest there were no ST or T wave changes noted to suggest ischemia and at peak exercise upsloping ST changes only were noted which did not meet the criteria for ischemia. No clinical angina was noted the test was terminated due to the target heart rate being achieved/fatigue. The peak blood pressure was 168/62 mmHg. Rate-pressure product was 28,300. Myocardial perfusion protocol. 14.4 mCi of technetium 99m sestamibi was injected at rest. The patient exercised according to regular Abhinav protocol for total duration of 9 minutes and at peak exercise 44.4 mCi of technetium 99m sestamibi was injected stress images were obtained stress and rest images were reconstructed in comparing the short axis vertical long and horizontal long axis. Gated images were also obtained. Perfusion SPECT analysis: Review of the stress images demonstrate normal uptake of tracer noted in all areas of the myocardium. The resting images similarly demonstrate normal uptake of tracer noted in all areas of the myocardium. No areas of reversibility are noted to suggest ischemia no previous infarct was noted. Gated SPECT analysis: The gated ejection fraction is 60%. Conclusion: Normal exercise myocardial perfusion stress test at a high workload Preserved ejection fraction.
== END | disposition home or self-care (01) ==
LOC: CVS 06:18
PROVIDERS: PCP Family Medicine; Referring Provider Nurse Practitioner Family; Visit Provider Nurse Practitioner Family
DX: R94.31 Abnormal electrocardiogram [ECG] [EKG] (principal)
CPT/HCPCS: 78452; 93017; A9500; A4216

== ENCOUNTER → 2022-07-20 | Outpatient (CLI) | payer OTHER, SELFPAY ==
[2022-07-20 10:12] LABS: Absolute Lymphocyte Count 1.71 X10^3/uL (0.83-4.51); Absolute Neutrophil Count 1.6 X10^3/uL (2.0-7.7); Basophil# 0.03 X10^3/uL; Basophil% 0.8 % (0-1); Eosinophil# 0.17 X10^3/uL; Eosinophils% 4.3 % (0-5); Hematocrit 44.7 % (40-54); Hemoglobin 14.6 g/dL (13.0-16.5); Lymphocyte # 1.71 X10^3/ul (0.83-4.51); Lymphocyte % 43.1 % (19-41); Mean Corp Hgb Conc 32.7 g/dL (32-36); Mean Corpuscular Hgb 28.9 pg (27.0-32.0); Mean Corpuscular Volume 88.5 fL (80-94); Mean Platelet Vol. 9.5 fl (6.2-12.0); Monocyte# 0.48 X10^3/uL; Monocyte% 12.1 % (0-10); NRBC Flagged by Analyzer 0 % (0-5); Neutrophil # 1.58 X10^3/uL (2.7-7.7); Neutrophil % 39.7 % (47-70); Platelet Count 280 K/mm3 (150-450); RBC Distribution Width CV 12.4 % (11.6-14.6); RBC Distribution Width SD 40.1 fl (35.1-43.9); Red Blood Count 5.05 M/mm3 (4.6-6.2)
[2022-07-20 10:25] LABS: Vitamin D,25 Hydroxy 84.2 ng/mL
[2022-07-20 10:31] LABS: ALB/GLOB Ratio 1.2 RATIO (0.9-2.4); AST(SGOT) 23 U/L (15-37); Alanine Aminotransfer ALT/SGPT 41 U/L (16-61); Alkaline Phosphatase 76 U/L (45-117); Anion Gap 9 (5-15); BUN 14 mg/dL (7-18); BUN/Creat Ratio 12.3 RATIO (10-20); Calcium,Total 9.2 mg/dL (8.5-10.1); Chloride 106 mmol/L (98-107); Cholesterol 200 mg/dL (200); Creatinine, Serum 1.14 mg/dL (0.70-1.30); EST Glomerular Filtration Rate 76 mL/min (>60); Est Glom Filt Rate - Afr Amer 91 mL/min (>60); Globulin 3.2 g/dL (2.2-4.2); Glucose 107 mg/dL (74-106); High Density Lipoprotein 38 mg/dL; Potassium 4.2 mmol/L (3.5-5.1); Protein, Total 7.2 g/dL (6.4-8.2); Sodium Level 141 mmol/L (136-145); Thyroid Stim Hormone (TSH) 0.66 uIU/mL (0.358-3.74); Triglycerides 63 mg/dL; Very Low Density Lipoprotein 13 mg/dL (5-40)
[2022-07-20 10:40] LABS: Hemoglobin A1c 5.9 % (3.8-5.6)
== END | disposition home or self-care (01) ==
LOC: MTLAB 08:55
PROVIDERS: PCP Family Medicine; Referring Provider Family Medicine; Visit Provider Family Medicine
DX: J45.30 Mild persistent asthma, uncomplicated (principal); E55.9 Vitamin D deficiency, unspecified; E78.5 Hyperlipidemia, unspecified; R73.03 Prediabetes
CPT/HCPCS: 36415; 80053; 80061; 82306; 83036; 84443; 85025

== ENCOUNTER → 2022-10-17 | Outpatient (CLI) | payer OTHER, SELFPAY ==
--- NOTE | 2022-10-17 15:00 | RAD_ITS ---
INDICATION: finger pain EXAMINATION/TECHNIQUE: X-RAY - RIGHT XR Hand Min 3 Views COMPARISON: None. FINDINGS: SOFT TISSUES: No significant soft tissue swelling. No radiopaque foreign body detected. BONES/JOINTS: No acute fracture or subluxation. Normal alignment. Preservation of the joint space(s). No suspicious osseous lesion observed. RAD/Hand Min 3 Views IMPRESSION: Negative right hand. Electronically Signed: Jake Perla MD at 23:02 EDT ,
--- NOTE | 2022-10-17 15:01 | RAD_ITS ---
INDICATION: Finger pain EXAMINATION/TECHNIQUE: X-RAY - LEFT XR Hand Min 3 Views COMPARISON: None. FINDINGS: SOFT TISSUES: No significant soft tissue swelling. No radiopaque foreign body detected. BONES/JOINTS: No acute fracture or subluxation. Normal alignment. Preservation of the joint space(s). No suspicious osseous lesion observed. RAD/Hand Min 3 Views IMPRESSION: Negative left hand. Electronically Signed: Jake Perla MD at 23:01 EDT ,
[2022-10-17 17:37] LABS: Absolute Lymphocyte Count 1.93 X10^3/uL (0.83-4.51); Absolute Neutrophil Count 2.5 X10^3/uL (2.0-7.7); Basophil# 0.03 X10^3/uL; Basophil% 0.6 % (0-1); Eosinophil# 0.23 X10^3/uL; Eosinophils% 4.6 % (0-5); Hematocrit 43.7 % (40-54); Hemoglobin 14.3 g/dL (13.0-16.5); Lymphocyte # 1.93 X10^3/ul (0.83-4.51); Lymphocyte % 38.5 % (19-41); Mean Corp Hgb Conc 32.7 g/dL (32-36); Mean Corpuscular Hgb 29.1 pg (27.0-32.0); Monocyte# 0.37 X10^3/uL; Monocyte% 7.4 % (0-10); NRBC Flagged by Analyzer 0 % (0-5); Neutrophil # 2.45 X10^3/uL (2.7-7.7); Neutrophil % 48.9 % (47-70); Platelet Count 258 K/mm3 (150-450); RBC Distribution Width SD 42.3 fl (35.1-43.9); Red Blood Count 4.91 M/mm3 (4.6-6.2)
[2022-10-17 18:00] LABS: Vitamin D,25 Hydroxy 64.7 ng/mL
[2022-10-17 18:05] LABS: ALB/GLOB Ratio 1.1 RATIO (0.9-2.4); AST(SGOT) 15 U/L (15-37); Alanine Aminotransfer ALT/SGPT 30 U/L (16-61); Albumin, Serum 3.8 g/dL (3.2-5.0); Alkaline Phosphatase 83 U/L (45-117); Anion Gap 8 (5-15); BUN 23 mg/dL (7-18); BUN/Creat Ratio 25.3 RATIO (10-20); Calcium,Total 9.4 mg/dL (8.5-10.1); Chloride 106 mmol/L (98-107); Cholesterol 215 mg/dL (200); Creatinine, Serum 0.91 mg/dL (0.70-1.30); EST Glomerular Filtration Rate 98 mL/min (>60); Est Glom Filt Rate - Afr Amer 119 mL/min (>60); Globulin 3.6 g/dL (2.2-4.2); Glucose 154 mg/dL (74-106); High Density Lipoprotein 33 mg/dL; Potassium 3.8 mmol/L (3.5-5.1); Protein, Total 7.4 g/dL (6.4-8.2); Sodium Level 137 mmol/L (136-145); Thyroid Stim Hormone (TSH) 0.97 uIU/mL (0.358-3.74); Triglycerides 351 mg/dL; Very Low Density Lipoprotein 70 mg/dL (5-40)
[2022-10-17 18:22] LABS: Hemoglobin A1c 6.1 % (3.8-5.6)
== END | disposition home or self-care (01) ==
PROVIDERS: PCP Family Medicine; Visit Provider Family Medicine
DX: E55.9 Vitamin D deficiency, unspecified (principal); J45.30 Mild persistent asthma, uncomplicated; R73.03 Prediabetes; E78.5 Hyperlipidemia, unspecified; M79.646 Pain in unspecified finger(s)
CPT/HCPCS: 36415; 73130; 80053; 80061; 82306; 83036; 84443; 85025

== ENCOUNTER → 2023-02-05 | Outpatient (CLI) | payer OTHER, SELFPAY | END | disposition home or self-care (01) | LOC: LABSPEC 12:21 | PROVIDERS: PCP Family Medicine; Referring Provider Family Medicine; Visit Provider Family Medicine | DX: R35.0 Frequency of micturition (principal) | CPT/HCPCS: 87086; 87491; 87591 ==

== ENCOUNTER → 2023-04-16 | Outpatient (CLI) | payer OTHER, SELFPAY ==
[2023-04-16 15:36] LABS: Absolute Lymphocyte Count 2.25 X10^3/uL (0.83-4.51); Absolute Neutrophil Count 3.1 X10^3/uL (2.0-7.7); Basophil# 0.05 X10^3/uL; Basophil% 0.8 % (0-1); Eosinophil# 0.26 X10^3/uL; Eosinophils% 4.2 % (0-5); Hematocrit 45.4 % (40-54); Hemoglobin 14.7 g/dL (13.0-16.5); Lymphocyte # 2.25 X10^3/ul (0.83-4.51); Lymphocyte % 36.1 % (19-41); Mean Corp Hgb Conc 32.4 g/dL (32-36); Mean Corpuscular Hgb 28.6 pg (27.0-32.0); Mean Corpuscular Volume 88.3 fL (80-94); Mean Platelet Vol. 9.6 fl (6.2-12.0); Monocyte# 0.54 X10^3/uL; Monocyte% 8.7 % (0-10); NRBC Flagged by Analyzer 0 % (0-5); Neutrophil # 3.12 X10^3/uL (2.7-7.7); Platelet Count 275 K/mm3 (150-450); RBC Distribution Width CV 12.7 % (11.6-14.6); RBC Distribution Width SD 41.1 fl (35.1-43.9); Red Blood Count 5.14 M/mm3 (4.6-6.2); White Blood Count 6.2 K/mm3 (4.4-11.0)
[2023-04-16 15:44] LABS: ALB/GLOB Ratio 1.1 RATIO (0.9-2.4); AST(SGOT) 15 U/L (15-37); Alanine Aminotransfer ALT/SGPT 41 U/L (16-61); Albumin, Serum 4.1 g/dL (3.2-5.0); Alkaline Phosphatase 81 U/L (45-117); Anion Gap 4 (5-15); BUN 18 mg/dL (7-18); BUN/Creat Ratio 18.6 RATIO (10-20); Calcium,Total 9.2 mg/dL (8.5-10.1); Chloride 105 mmol/L (98-107); Cholesterol 237 mg/dL (200); Creatinine, Serum 0.97 mg/dL (0.70-1.30); EST Glomerular Filtration Rate 91 mL/min (>60); Est Glom Filt Rate - Afr Amer 110 mL/min (>60); Globulin 3.6 g/dL (2.2-4.2); Glucose 94 mg/dL (74-106); High Density Lipoprotein 46 mg/dL; Potassium 3.8 mmol/L (3.5-5.1); Protein, Total 7.7 g/dL (6.4-8.2); Sodium Level 138 mmol/L (136-145); Triglycerides 182 mg/dL; Very Low Density Lipoprotein 36 mg/dL (5-40)
[2023-04-16 15:46] LABS: Vitamin D,25 Hydroxy 27.8 ng/mL
== END | disposition home or self-care (01) ==
LOC: MTLAB 13:02
PROVIDERS: PCP Family Medicine; Referring Provider Family Medicine; Visit Provider Family Medicine
DX: E78.5 Hyperlipidemia, unspecified (principal); R73.03 Prediabetes; E55.9 Vitamin D deficiency, unspecified
CPT/HCPCS: 36415; 80053; 80061; 82306; 83036; 85025

== ENCOUNTER 2023-10-04 08:51 | Outpatient (RCR) | payer OTHER, SELFPAY ==
--- NOTE | 2023-10-08 09:48 | HP.PTEVAL ---
Patient's Visit Information Visit Information Visit Information: YING GIBSON is a 43 year old M referred to Physical Therapy by RITO ORLANDO with a diagnosis of L meniscectomy DOS: 09/30/23. Date of Evaluation: 10/04/23 Physical Therapist: Eagle Esteves DPT Visit Plan Frequency: 1x/Week Duration: 6 Weeks Plan: Start with progressing L knee ROM, edema control. Progress quad and glute strengthening. Subjective Subjective: Pt. is here today for his initial evaluation with diagnosis of L meniscectomy DOS: 09/30/23. Pt. arrives with knee wrapped. No crutches. Pt. reports overall minimal pain. Pt. has been off his leg for a few days, Icing frequently. He is elevating as prescribed. He has been doing quad sets and ankle pumps at home. Pt. reports no issues with sleeping. Pt. denies N/T, no adverse reaction. 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 Pt. has refrained from doing both of these. Pt. is hopeful to reduce symptoms in order to get back to all recreational and work activities without limitations. Hobbies: hunting, fishing, outdoor sports. PMH: L ACLr and meniscus repair. Pain L knee: Pain Intensity (Out of 10): 2 Pain Intensity Range: 1 and 4 Objective Objective: POSTURE: Pt. has decent posture in stance. Slight wt. shift to R leg in static standing. Normal YEN noted. PALPATON: Pt. has some edema, but no signs of infection, very little erythema noted. NEURO: normal throughout BLEs. ROM: L knee 0-2-121deg. Pt. has mild tightness in HS, but overall great ROM. MMT: Pt. has good quad set and SLR x20 with minimal to no extensor lag. hip abd 33#, ext 24# GAIT: pt. has decent gait pattern, slight lack of TKE during stance, but overall pretty good. STAIRS: step to pattern noted. Balance/Special Test Scores Lower Extremity Functional Score: 32 Goals Goal 1:: LTG: Pt. to be I with HEP. Goal Time Frame: 4-6 Weeks Goal 2:: STG: Pt. to have increased L knee ROM to 0-0-130deg without reports of increased pain. Goal Time Frame: 2-4 Weeks Goal 3:: LTG: pt. to have symmetrical strength between BLEs. Goal Time Frame: 4-6 Weeks Goal 4:: LTG: Pt. to ambulate with normal gait pattern without increase in L knee pain. Goal Time Frame: 4-6 Weeks Goal 5:: LTG: Pt. to negotiate steps with reciprocal pattern without increase in L knee pain Goal Time Frame: 4-6 Weeks Rehabilitation Potential Physical Therapy Diagnosis: Pt. has signs and symptoms consistent with L meniscectomy. Pt. has some hypomobility, as well as weakness. He would benefit from PT to address both of those issues progressing back to all work and recreational activities without limitations. Rehabilitation Potential: Excellent Anticipated Interventions Patient/Client Instruction: Educate patient on: Condition, Plan of Care, Risk Factors and Benefits of Fitness Program For the Purpose of:: To improve decision making, To facilitate caregiver knowledge, To improve self management, To prevent re-injury and To improve ability to perform tasks related to life management Therapeutic Exercise to Include: Strength training, Power training, Flexibilty training, Gait and locomotor training, Passive ROM and Active ROM For the Purpose of:: To decrease pain, To increase ROM, To improve nutrient delivery to tissue, To increase oxygenation perfusion, To improve muscle performance and motor function and To improve ability to perform ADL's Cryotherapy (ice pack, ice massage): Yes Vasopneumatic device: Yes For the Purpose of:: To decrease pain, To decrease swelling/inflammation, To increase ROM and To improve nutrient delivery to tissue Text: Thank you for the opportunity to evaluate your patient. For Medicare and Medicare HMO plans, please review the plan of care and approve it. It will need to be FAXED BACK to us at [phone] for Medicare purposes. For Medicare only, by signing this I certify the plan of care. Please let me know if there are questions or concerns regarding this plan of care. Physician Signature: Date:
== END 2023-10-18 19:00 | disposition home or self-care (01) ==
LOC: PT 08:51
PROVIDERS: PCP Family Medicine
DX: M25.562 Pain in left knee (principal); G89.29 Other chronic pain
CPT/HCPCS: 97161

== ENCOUNTER → 2023-12-20 | Outpatient (CLI) | payer OTHER, SELFPAY ==
[2023-12-20 15:27] LABS: Vitamin D,25 Hydroxy 51.5 ng/mL
[2023-12-24 11:59] LABS: Endomysial Antibody IgA Negative (Negative); Immunoglobulin A 205 mg/dL (90-386); t-Transglutaminase IgA 3 U/mL (0-3)
== END | disposition home or self-care (01) ==
LOC: MFPLAB 12:09
PROVIDERS: PCP Family Medicine; Referring Provider Internal Medicine Gastroenterology; Visit Provider Internal Medicine Gastroenterology
DX: K20.0 Eosinophilic esophagitis (principal); K90.0 Celiac disease
CPT/HCPCS: 36415; 82306; 82784; 83516; 86255

== ENCOUNTER → 2024-01-03 | Outpatient (CLI) | payer OTHER, SELFPAY ==
--- NOTE | 2024-01-03 12:46 | RAD_ITS ---
STUDY: X-RAY CHEST REASON FOR EXAM: Male, 43 years old. Cough. TECHNIQUE: Frontal and lateral views of the chest. COMPARISON: June 19, 2019 FINDINGS: The lungs are clear and expanded. There is no demonstrated pleural abnormality. Normal size heart. Normal mediastinum and mckenzie. Normal visualized pulmonary arteries. Normal visualized aortic arch and descending thoracic aorta. Normal visualized thoracic spine. Normal visualized ribs, clavicles, and shoulders. No abnormality of the visualized soft tissue structures of the upper abdomen. RAD/Chest PA and Lateral IMPRESSION: No interval change. Normal chest. Electronically Signed: Evelio Hardy MD at 13:45 EDT ,
== END | disposition home or self-care (01) ==
LOC: MTRAD 12:46
PROVIDERS: PCP Family Medicine; Referring Provider Family Medicine; Visit Provider Family Medicine
DX: R05.9 Cough, unspecified (principal)
CPT/HCPCS: 71046

== ENCOUNTER → 2024-01-24 | Outpatient (CLI) | payer OTHER, SELFPAY ==
--- NOTE | 2024-01-24 09:10 | RAD_ITS ---
STUDY: X-RAY - ESOPHAGUS (BARIUM SWALLOW) WITH FLUOROSCOPY REASON FOR EXAM: Male, 43 years old. GERD TECHNIQUE: 66 fluoroscopic view(s) of the esophagus were obtained following swallowing of barium. FLUOROSCOPY TIME (if supplied): (40 seconds) minutes/seconds. 10.7 mGy. COMPARISON: None. FINDINGS: There is no demonstrated esophageal foreign body. There is no demonstrated stricture or mucosal abnormality. Normal gastroesophageal junction, without a demonstrated hiatal hernia. The patient ingested a 12 mm tablet of barium without any difficulty. Normal visualized aortic arch and descending thoracic aorta. Normal visualized pulmonary parenchyma. Normal visualized osseous structures of the thorax. RAD/Esophagus Dual Contrast IMPRESSION: Normal plain film x-ray examination (barium swallow) of the esophagus. Electronically Signed: Tutu Hansen MD at 10:05 EDT ,
== END | disposition home or self-care (01) ==
LOC: RAD 09:02
PROVIDERS: PCP Family Medicine; Visit Provider Internal Medicine Gastroenterology
DX: R13.10 Dysphagia, unspecified (principal); K21.9 Gastro-esophageal reflux disease without esophagitis
CPT/HCPCS: 74221

== ENCOUNTER → 2024-01-30 | Outpatient (CLI) | payer OTHER, SELFPAY ==
[2024-01-30 17:57] LABS: Absolute Lymphocyte Count 2.26 X10^3/uL (0.83-4.51); Absolute Neutrophil Count 3.1 X10^3/uL (2.0-7.7); Basophil# 0.04 X10^3/uL; Basophil% 0.6 % (0-1); Eosinophil# 0.24 X10^3/uL; Eosinophils% 3.8 % (0-5); Hematocrit 43.6 % (40-54); Hemoglobin 14.4 g/dL (13.0-16.5); Lymphocyte # 2.26 X10^3/ul (0.83-4.51); Lymphocyte % 36.2 % (19-41); Mean Corpuscular Hgb 28.9 pg (27.0-32.0); Mean Corpuscular Volume 87.6 fL (80-94); Mean Platelet Vol. 9.5 fl (6.2-12.0); Monocyte# 0.62 X10^3/uL; Monocyte% 9.9 % (0-10); NRBC Flagged by Analyzer 0 % (0-5); Neutrophil # 3.08 X10^3/uL (2.7-7.7); Neutrophil % 49.3 % (47-70); Platelet Count 266 K/mm3 (150-450); RBC Distribution Width CV 12.9 % (11.6-14.6); RBC Distribution Width SD 41.3 fl (35.1-43.9); Red Blood Count 4.98 M/mm3 (4.6-6.2); White Blood Count 6.3 K/mm3 (4.4-11.0)
[2024-01-30 18:06] LABS: Vitamin B12 760 pg/mL (211-911)
[2024-01-30 18:10] LABS: Hemoglobin A1c 6.1 % (3.8-5.6)
[2024-01-30 18:17] LABS: ALB/GLOB Ratio 1.3 RATIO (0.9-2.4); AST(SGOT) 35 U/L (15-37); Alanine Aminotransfer ALT/SGPT 50 U/L (16-61); Albumin, Serum 4.2 g/dL (3.2-5.0); Alkaline Phosphatase 83 U/L (45-117); Anion Gap 7 (5-15); BUN 19 mg/dL (7-18); BUN/Creat Ratio 20.2 RATIO (10-20); Calcium,Total 9.7 mg/dL (8.5-10.1); Chloride 107 mmol/L (98-107); Cholesterol 265 mg/dL (200); Creatinine, Serum 0.94 mg/dL (0.70-1.30); EST Glomerular Filtration Rate 93 mL/min (>60); Est Glom Filt Rate - Afr Amer 113 mL/min (>60); Globulin 3.3 g/dL (2.2-4.2); Glucose 101 mg/dL (74-106); High Density Lipoprotein 46 mg/dL; Potassium 3.6 mmol/L (3.5-5.1); Protein, Total 7.5 g/dL (6.4-8.2); Sodium Level 138 mmol/L (136-145); T4 Free Direct 0.86 ng/dL (0.76-1.46); Triglycerides 143 mg/dL; Very Low Density Lipoprotein 29 mg/dL (5-40)
== END | disposition home or self-care (01) ==
LOC: MFPLAB 16:20
PROVIDERS: PCP Family Medicine; Visit Provider Family Medicine
DX: E78.5 Hyperlipidemia, unspecified (principal); I10 Essential (primary) hypertension; R53.83 Other fatigue; R73.03 Prediabetes
CPT/HCPCS: 36415; 80053; 80061; 82607; 83036; 84439; 84443; 85025

== ENCOUNTER → 2024-07-29 | Outpatient (CLI) | payer OTHER, SELFPAY ==
--- NOTE | 2024-07-29 15:11 | VDLE_ITS ---
Reason For Study Reason For Study: Right leg swelling RIGHT LEFT GSV is normal. CFV is compressible, spontaneous, phasic, competent, CFV is compressible, spontaneous, phasic, competent and demonstrates normal augmentation. and demonstrates normal augmentation. FV is compressible, spontaneous, phasic, competent and demonstrates normal augmentation. POP V is compressible, spontaneous, phasic, competent and demonstrates normal augmentation. T/P Trunk is compressible. PTV is compressible. RT PerV is compressible. Procedure This is a venous duplex using B-mode, color flow and spectral Doppler. Exam performed in department. A preliminary report was called and/or faxed to Dr. Zimmer. VL/Venous Duplex US, Unilateral Interpretation Summary Deep veins of the right lower extremity are patent and compressible segmentally . There is no evidence of right lower extremity deep vein thrombosis. Valvular competence appears intact within the p roximal deep venous system on the right . The right great saphenous vein appears patent and compressible segmentally. The left common femoral vein is patent and compressible . Ordering Physician: Emiliano Zimmer Referring Physician: Emiliano Zimmer Performed By: Ninoska Olmos RVT
== END | disposition home or self-care (01) ==
LOC: CVS 15:08
PROVIDERS: PCP Family Medicine; Referring Provider Family Medicine; Visit Provider Family Medicine
DX: M79.89 Other specified soft tissue disorders (principal)
CPT/HCPCS: 93971

== ENCOUNTER → 2025-03-18 | Outpatient (CLI) | payer OTHER, SELFPAY ==
--- NOTE | 2025-03-18 10:17 | RAD_ITS ---
PROCEDURE: CHEST PA AND LATERAL 03/18/2025 REASON FOR EXAM: ASTHMA EXACERBATION TECHNIQUE: Procedure Code: RADCXR Modality: DX Procedure: CHEST PA AND LATERAL COMPARISON: Chest x-ray of 01/03/2024. RAD/Chest PA and Lateral IMPRESSION: Lungs appear clear of acute disease, and unchanged. No pleural effusion or pneumothorax is noted. The cardiomediastinal silhouette is within the normal range, and unchanged. No acute osseous change is evident. Negative examination. Reading Location: [place] [id number]
== END | disposition home or self-care (01) ==
LOC: MTRAD 10:17
PROVIDERS: PCP Family Medicine; Referring Provider Family Medicine; Visit Provider Family Medicine
DX: J45.901 Unspecified asthma with (acute) exacerbation (principal)
CPT/HCPCS: 71046

== ENCOUNTER → 2025-04-05 | Outpatient (CLI) | payer OTHER, SELFPAY ==
[2025-04-05 17:38] LABS: Hematocrit 44.5 % (40-54); Hemoglobin 15.0 g/dL (13.0-16.5); Immature Granulocytes Count 0.020 X10^3/uL (0.0-0.0); Mean Corp Hgb Conc 33.7 g/dL (32-36); Mean Corpuscular Volume 86.4 fL (80-94); Mean Platelet Vol. 9.4 fl (6.2-12.0); NRBC Flagged by Analyzer 0 % (0-5); Platelet Count 277 K/mm3 (150-450); RBC Distribution Width CV 12.9 % (11.6-14.6); RBC Distribution Width SD 41.0 fl (35.1-43.9); Red Blood Count 5.15 M/mm3 (4.6-6.2); White Blood Count 7.8 K/mm3 (4.4-11.0)
[2025-04-05 18:32] LABS: AST(SGOT) 26 U/L (<=37); Alanine Aminotransfer ALT/SGPT 39 U/L (<=46); Albumin, Serum 4.8 g/dL (3.5-5.0); Alkaline Phosphatase 77 U/L (40-129); Anion Gap 15 (5-15); BUN 21 mg/dL (4-19); BUN/Creat Ratio 22.6 RATIO (10-20); Calcium,Total 9.8 mg/dL (7.6-11.0); Carbon Dioxide 23.1 mmol/L (21.0-32.0); Chloride 104 mmol/L (98-108); Globulin 2.9 g/dL (2.2-4.2); Glucose 94 mg/dL (70-99); Potassium 4.1 mmol/L (3.3-5.1)
== END | disposition home or self-care (01) ==
LOC: MTLAB 16:22
PROVIDERS: PCP Family Medicine; Referring Provider Family Medicine; Visit Provider Family Medicine
DX: I10 Essential (primary) hypertension (principal); R73.03 Prediabetes
CPT/HCPCS: 36415; 80053; 83036; 84443; 85025

== ENCOUNTER → 2025-04-22 | Outpatient (CLI) | payer OTHER, SELFPAY ==
--- NOTE | 2025-04-22 14:00 | ECHOD_ITS ---
Reason For Study Reason For Study: HTN Procedure This was a 2D Doppler, Color Flow transthoracic echocardiogram. Exam performed in department. Left Ventricle Normal LV size. Mild concentric left ventricular hypertrophy. The left ventricular ejection fraction is 60 %. Normal diastololic function. No regional wall motion abnormalities noted. Right Ventricle Normal RV size. Normal systolic function. Atria Normal left atrium. Normal right atrium. Mitral Valve Normal mitral valve. Trivial mitral valve insufficiency. Tricuspid Valve Normal tricuspid valve. Mild (1+) tricuspid valve insufficiency. Pulmonary artery systolic pressure is 27 mmHg. Aortic Valve Trisinus/trileaflet aortic valve. Pulmonic Valve Normal pulmonic valve. Great Vessels The sinus of valsalva is mildly dilated. The pulmonary artery is normal size. Inferior vena cava collapse with respiration. Pericardium/Pleural No pericardial effusion. MMode/2D Measurements & Calculations LVIDd: 5.2 cm IVSd: 1.2 cm Ao root diam: 3.8 cm LVIDs: 3.3 cm LVPWd: 1.2 cm RVDd: 3.3 cm FS: 37.2 % LAV(MOD-bp): 64.7 ml LVAd ap4: 31.8 cm2 LVAd ap2: 31.1 cm2 LAV(MOD-bp) Indexed: 28.7 ml/m2 LVLd ap4: 8.6 cm LVLd ap2: 8.5 cm LAV(MOD-sp2): 67.2 ml EDV(MOD-sp4): 96.9 ml EDV(MOD-sp2): 93.9 ml LAV(MOD-sp4): 63.8 ml EDV(sp4-el): 99.3 ml EDV(sp2-el): 96.2 ml LVAs ap4: 17.8 cm2 LVAs ap2: 15.9 cm2 LVLs ap4: 7.2 cm LVLs ap2: 6.5 cm ESV(MOD-sp4): 36.9 ml ESV(MOD-sp2): 34.9 ml ESV(sp4-el): 37.1 ml ESV(sp2-el): 33.2 ml EF(MOD-sp4): 61.9 % EF(MOD-sp2): 62.8 % EF(sp4-el): 62.7 % SV(MOD-sp4): 60.0 ml SV(MOD-sp2): 59.0 ml EDV(MOD-bp): 96.4 ml SI(MOD-sp4): 26.6 ml/m2 SI(MOD-sp2): 26.2 ml/m2 ESV(MOD-bp): 37.6 ml EF(MOD-bp): 61.0 % SV(sp4-el): 62.2 ml Ao sinus diam: 4.3 cm LA A4 area: 20.3 cm2 LA dimension(2D): 4.0 cm RA A4 area: 16.2 cm2 TAPSE: 2.4 cm Time Measurements MV dec time: 0.23 sec Doppler Measurements & Calculations MV E max davidson: 69.2 cm/sec Lat Peak E' Davidson: 8.0 cm/sec Med Peak E' Davidson: 9.0 cm/sec MV A max davidson: 54.5 cm/sec E/E' lat: 8.6 E/E' med: 7.7 MV E/A: 1.3 Ao V2 max: 122.6 cm/sec LV V1 max: 99.2 cm/sec MV dec slope: 300.0 cm/sec2 Ao max P.0 mmHg LV V1 max P.9 mmHg Ao V2 mean: 85.3 cm/sec LV V1 mean P.5 mmHg Ao mean P.3 mmHg LV V1 mean: 77.5 cm/sec Ao V2 VTI: 27.3 cm LV V1 VTI: 20.6 cm AV (velocity ratio): 0.75 PA V2 max: 90.8 cm/sec TR max davidson: 244.9 cm/sec TR max P.0 mmHg ECHO/Echo Complete Interpretation Summary The left ventricular ejection fraction is 60 %. Normal LV size. Mild concentric left ventricular hypertrophy. Mild (1+) tricuspid valve insufficiency. Ordering Physician: Raj Carr Referring Physician: Raj Carr Performed By: Elvira Reaves RDCS, RVT
== END | disposition home or self-care (01) ==
LOC: CVS 13:55
PROVIDERS: PCP Family Medicine; Referring Provider Family Medicine; Visit Provider Family Medicine
DX: I10 Essential (primary) hypertension (principal); I34.0 Nonrheumatic mitral (valve) insufficiency
CPT/HCPCS: 93306

== ENCOUNTER → 2025-04-26 | Outpatient (CLI) | payer OTHER, SELFPAY ==
[2025-04-26 18:40] LABS: Creatinine, Urine (random) 138.00 mg/dL (39.00-259.00); Microalbumin,Random Urine < 12.0 mg/L (<20 mg/L)
[2025-04-26 18:46] LABS: AST(SGOT) 25 U/L (<=37); Alanine Aminotransfer ALT/SGPT 32 U/L (<=46); Albumin, Serum 4.6 g/dL (3.5-5.0); Alkaline Phosphatase 76 U/L (40-129); Anion Gap 11 (5-15); BUN 17 mg/dL (4-19); BUN/Creat Ratio 18.7 RATIO (10-20); Calcium,Total 9.7 mg/dL (7.6-11.0); Carbon Dioxide 24.6 mmol/L (21.0-32.0); Chloride 103 mmol/L (98-108); Ferritin 189 ng/mL (37-417); Globulin 2.6 g/dL (2.2-4.2); Glucose 91 mg/dL (70-99); Potassium 4.0 mmol/L (3.3-5.1); Vitamin B12 734 pg/mL (180-914); Vitamin D,25 Hydroxy 29.6 ng/mL (30-100)
[2025-04-28 11:09] LABS: Lyme Scn Total Ab w/Rflx Negative (Negative)
== END | disposition home or self-care (01) ==
LOC: MTLAB 14:55
PROVIDERS: PCP Family Medicine; Visit Provider Family Medicine
DX: I10 Essential (primary) hypertension (principal); E55.9 Vitamin D deficiency, unspecified; K90.0 Celiac disease; R53.83 Other fatigue
CPT/HCPCS: 36415; 80053; 82043; 82306; 82570; 82607; 82728; 86618

== ENCOUNTER → 2025-05-04 | Outpatient (CLI) | payer OTHER, SELFPAY ==
[2025-05-04 17:58] LABS: Hematocrit 44.4 % (40-54); Hemoglobin 14.8 g/dL (13.0-16.5); Immature Granulocytes Count 0.010 X10^3/uL (0.0-0.0); Mean Corp Hgb Conc 33.3 g/dL (32-36); Mean Corpuscular Volume 87.6 fL (80-94); Mean Platelet Vol. 9.7 fl (6.2-12.0); NRBC Flagged by Analyzer 0 % (0-5); Platelet Count 258 K/mm3 (150-450); RBC Distribution Width CV 12.9 % (11.6-14.6); RBC Distribution Width SD 41.0 fl (35.1-43.9); Red Blood Count 5.07 M/mm3 (4.6-6.2); White Blood Count 5.7 K/mm3 (4.4-11.0)
[2025-05-04 18:01] LABS: AST(SGOT) 24 U/L (<=37); Alanine Aminotransfer ALT/SGPT 36 U/L (<=46); Albumin, Serum 4.7 g/dL (3.5-5.0); Alkaline Phosphatase 86 U/L (40-129); Anion Gap 15 (7-18); BUN 24 mg/dL (4-19); BUN/Creat Ratio 19.0 RATIO (10-20); Calcium,Total 9.6 mg/dL (7.6-11.0); Carbon Dioxide 20.5 mmol/L (20.0-29.0); Chloride 103 mmol/L (96-106); Cholesterol 249 mg/dL (<=200); Globulin 2.8 g/dL (2.2-4.2); Glucose 103 mg/dL (70-99); Low Density Lipoprotein Calc. 118 mg/dL; Magnesium 2.2 mg/dL (1.5-2.2); Potassium 3.6 mmol/L (3.5-5.1); Triglycerides 536 mg/dL; Very Low Density Lipoprotein 107 mg/dL (5-40); cholesterol:hdl ratio screen 6.94
--- OUTSIDE RECORDS SUMMARY | 2025-05-04 18:04 | XMS RPT_ITS | CCD ---
Author Organization [facility] Care Team Providers Care Outbound Supervisor Name Role Phone Dr. Anna Mera Primary Care Provider Marilyn PROPERTY INVESTOR, PROPERTY INVESTOR-C Jannet Referring Provider Marilyn PROPERTY INVESTOR, PROPERTY INVESTOR-C Jannet Other Provider Dr. [place] Perez Attending Provider Unavailable Primary Care Provider UnavailPRUDENCE Gonzalez Admitting Unavailable PRUDENCE ORLANDO Attending Unavailable PRUDENCE ORLANDO Referring Unavailable PRUDENCE ORLANDO Attending Unavailable JOHNNY ANTONIO Attending Unavailable PRUDENCE ORLANDO Attending Unavailable Goran RAY, Dr. Emiliano Cruz Primary Care Provider Goran RAY, Dr. Emiliano Cruz Attending Provider Dr. Emiliano Zimmer MD Referring Provider Emiliano Zimmer Attending Unavailable Emiliano Zimmer Referring Unavailable Emiliano Zimmer Primary Care Unavailable Emiliano Zimmer Attending Unavailable Emiliano Zimmer Referring Unavailable Emiliano Zimmer Primary Care Unavailable Emiliano Zimmer Attending Unavailable Emiliano Zimmer Referring Unavailable Emiliano Zimmer Primary Care Unavailable Allergies Allergy Classification Reported Allergen(s) Allergy Type Date of Onset Reaction(s) Facility (7 sources) oxyCODONE; Translations: [oxycodone HCl] Drug Allergy 04-15-2019 [facility] (12 sources) Acetaminophen / oxyCODONE; Translations: [OXYCODONE-ACETAMI NOPHEN] Drug Allergy 09-18-2004 [facility] Work Phone: Medications Current Medications Medication Drug Class(es) Dates Sig (Normalized) Sig (Original) acetaminophen 325 mg / HYDROcodone bitartrate 5 mg oral tablet (20 sources) Opioid Agonist Start: 09-30-2023 End: 10-03-2023 HYDROcodone-acetami nophen (NORCO) 5-325 mg per tablet Indications: S/P left knee arthroscopy Take 1 tablet by mouth every 8 hours as needed for pain (Take lowest effective dose. Do not take with alcohol or sleep aids.) for up to 3 days. 5 tablet 0 09/30/2023 10/03/2023 Active Start: 04-21-2019 End: 04-29-2019 Hydrocodone-Acetaminophen 1 TABLET tablet Discontinued 1 - 2 {tbl} PO EVERY 4 HOURS NEEDED as needed for Pain 09 12April 21, 2019 April 27, 2019 1:00am April 29, 2019 1:12am Start: 04-21-2019 End: 04-29-2019 take 1 tablet by mouth every four hours as needed Hydrocodone-Acetaminophen Discontinued 1 - 2 TABLET PO EVERY 4 HOURS NEEDED 30 April 21, 2019 April 29, 2019 12:12am Start: 02-16-2016 End: 07-22-2017 Hydrocodone-Acetaminophen 1 TABLET tablet Discontinued 1 - 2 {tbl} PO EVERY 4 HOURS NEEDED as needed for Pain February 16, 2016 12:00am July 22, 2017 8:41am Start: 02-16-2016 End: 07-22-2017 take 1 tablet by mouth every four hours as needed Hydrocodone-Acetaminophen Discontinued 1 - 2 TABLET PO EVERY 4 HOURS NEEDED February 15, 2016 11:00pm July 22, 2017 7:41am budesonide 3 mg delayed release oral capsule (14 sources) Corticosteroid Start: 01-14-2019 take 1 capsule by mouth once daily Budesonide 3 mg capsule,delayed,extend.release Active 3 mg PO DAILY January 14, 2019 12:00am BUDESONIDE ORAL Take by mouth. 0 Active cholecalciferol 1.25 mg oral capsule (5 sources) Vitamin D cholecalciferol (VITAMIN D3) 50,000 units capsule Take by mouth one time only. 0 Active ergocalciferol 1.25 mg oral capsule (9 sources) Provitamin D2 Compound Start: 04-15-2019 Ergocalciferol (Vitamin D2) 50,000 UNIT capsule Active 19361 U PO EVERY MONTH April 15, 2019 1:00am 120 actuat formoterol fumarate 0.005 mg/actuat / mometasone furoate 0.1 mg/actuat metered dose inhaler (9 sources) Corticosteroid, beta2-Adrenergic Agonist Start: 04-15-2019 Mometasone-Formoterol 13 GM HFA aerosol inhaler Active 2 NMA IH TWICE A DAY April 15, 2019 1:00am Start: 04-15-2019 take 1 puff(s) by in halation twice daily Mometasone-Formoterol Active 2 PUFF IH TWICE A DAY April 15, 2019 12:00am Losartan (5 sources) Angiotensin 2 Receptor Cherelle losartan potassium (LOSARTAN ORAL) Take by mouth. 0 Active montelukast 10 mg oral tablet (14 sources) Leukotriene Receptor Antagonist Start: 9 take 1 tablet by mouth once daily in the evening Montelukast (Singulair) 10 mg tablet Active 10 mg PO EVERY EVENING January 14, 2019 12:00am montelukast sodi um (SINGULAIR ORAL) Take by mouth. 0 Active naproxen 500 mg oral tablet (3 sources) Nonsteroidal Anti-inflammatory Drug Start: 09-30-2023 take 1 tablet by mouth twice daily at mealtime naproxen (NAPROSYN) 500 mg tablet Take 1 tablet by mouth two times a day with meals. Take with food 14 tablet 0 09/30/2023 Active omeprazole 20 mg delayed release oral capsule (14 sources) Proton Pump Inhibitor Start: 01-14-2019 take 1 capsule by mouth twice daily Omeprazole 20 mg capsule,delayed release(DR/EC) Active 20 mg PO TWICE A DAY January 14, 2019 12:00am OMEPRAZOLE ORAL Take by mouth. 0 Active Completed/Discontinued Medications Medication Drug Class(es) Dates Sig (Normalized) Sig (Original) acetaminophen 500 mg oral tablet (6 sources) End: 09-18-2023 take 1 tablet by mouth every six hours as needed acetaminophen (TYLENOL EXTRA STRENGTH) 500 mg ORAL tablet Take 500 mg by mouth every 6 hours as needed. 0 09/18/2023 Discontinued esomeprazole 20 mg delayed release oral capsule (15 sources) Proton Pump Inhibitor Start: 07-22-2017 End: 01-14-2019 take 1 capsule by mouth once daily Esomeprazole Magnesium (Nexium) 20 mg capsule,delayed release(DR/EC) Discontinued 20 mg PO daily July 22, 2017 12:00am January 14, 2019 1:46pm Start: 07-18-2006 End: 09-18-2023 NEXIUM 40 MG CAP as necessar y 0 07/18/2006 09/18/2023 Discontinued ibuprofen 200 mg oral capsule (6 sources) Nonsteroidal Anti-inflammatory Drug End: 09-18-2023 Ibuprofen 200 mg ORAL Cap Take by mouth. 0 09/18/2023 Discontinued Problems Active Problems Problem Classification Problem Date Documented Date Episodic/Chronic Abdominal hernia (9 sources) Umbilical hernia; Translations: [Umbilical hernia without obstruction or gangrene] 04-21-2019 Episodic Asthma (6 sources) Asthma; Translations: [Unspecified asthma, uncomplicated] Onset: 09-18-2023 09-18-2023 Chronic Esophageal disorders (6 sources) Gastroesophageal reflux disease; Translations: [Gastro-esophageal reflux disease without esophagitis] Onset: 09-18-2023 09-18-2023 Chronic Essential hypertension (6 sources) Hypertensive disorder; Translations: [Essential (primary) hypertension] Onset: 09-18-2023 09-18-2023 Chronic Intracranial injury (9 sources) Concussion with no loss of consciousness; Translations: [Concussion without loss of consciousness, initial encounter] 02-17-2016 Episodic Open wounds of head; neck; and trunk (9 sources) Laceration of lip ; Translations: [Laceration without foreign body of lip, initial encounter] 02-17-2016 Episodic Other nervous system disorders (1 source) Other chronic pain; Translations: [Chronic pain of left knee] Onset: 09-18-2023 Chronic Other non-traumatic joint disorders (4 sources) Pain in left knee; Translations: [Pain in joint, lower leg] Onset: 09-18-2023 09-06-2023 Episodic Other nutritional; endocrine; and metabolic disorders (6 sources) Obesity caused by energy imbalance; Translations: [Other obesity due to excess calories] Onset: 09-18-2023 09-18-2023 Chronic Residual codes; unclassified (1 source) Other specified postprocedural states; Translations: [S/P left knee arthroscopy] Onset: 09-30-2023 Episodic Skull and face fractures (9 sources) Fractured nasal bones; Translations: [Fracture of nasal bones, initial encounter for closed fracture] 02-17-2016 Episodic Unclassified (10 sources) Reflux; Translations: [Reflux] 09-25-2010 Past or Other Problems Problem Classification Problem Date Documented Da te Episodic/Chronic Contraceptive and procreative management (10 sources) Patient encounter status; Translations: [Encounter for fertility testing] Onset: 06-03-2012 06-03-2012 Episodic Joint disorders and dislocations; trauma-related (10 sources) Injury of knee; Translations: [Other tear of cartilage or meniscus of knee, current] Onset: 09-18-2004 09-18-2004 Episodic Other connective tissue disease (2 sources) Other specified soft tissue disorders; Translations: [Other specified soft tissue disorders] Onset: 07-30-2024 Episodic Other diseases of veins and lymphatics (10 sources) Varicocele; Translations: [Scrotal varices] Onset: 09-09-2008 09-09-2008 Episodic Sprains and strains (10 sources) Sprain of cruciate ligament of knee; Translations: [Sprain of unspecified cruciate ligament of unspecified knee, initial encounter] Onset: 09-18-2004 09-18-2004 Episodic Results Test Name Value Interpretation Reference Range Facility Chest PA and Lateralon 03-18 Chest PA and Lateral [facility] Imaging Services [address] [place] [address] [id number] Chest PA and Lateral MR#: [id number] Acct: [id number] Name: WILDER GIBSON Rep #: [id number] : 1980 M 45 From: Moses Dias PCP: Dr. Emiliano Zimmer MD Status: REG CLI Study: Chest PA and Lateral Date of Exam: 03/18/25 Exam# [id number] Ordering Dr: Emiliano Zimmer MD PROCEDURE: CHEST PA AND LATERAL 03/18/2025 REASON FOR EXAM: ASTHMA EXACERBATION TECHNIQUE: Procedure Code: RADCXR Modality: DX Procedure: CHEST PA AND LATERAL COMPARISON: Chest x-ray of 01/03/2024. RAD/Chest PA and Lateral IMPRESSION: Lungs appear clear of acute disease, and unchanged. No pleural effusion or pneumothorax is noted. The cardiomediastinal silhouette is within the normal range, and unchanged. No acute osseous change is evident. Negative examination. Reading Location: [facility] CC: Dr. Emiliano Zimmer MD Sap Architect: Signed Normal Venous Duplex US, Unilateral on 07-29-2024 Venous Duplex US, Unilateral [facility] [address] [place] [address] Venous Duplex US, Unilateral 07/29/24 1516 MR#: [id number] Acct: [id number] Name: WILDER GIBSON Rep #: [id number] : 1980 44 From: Jeferson Mary MD Attending Dr: Dr. Emiliano Zimmer MD Status: R EG CLI Ordering Dr: Emiliano Zimmer MD Date: 07/29/24 Location: [facility] Sex: M C Admitted: Reason For Study Reason For Study: Right leg swelling RIGHT LEFT GSV is normal. CFV is compressible, spontaneous, phasic, competent, CFV is compressible, spontaneous, phasic, competent and demonstrates normal augmentation. and demonstrates normal augmentation. FV is compressible, spontaneous, phasic, competent and demonstrates normal augmentation. POP V is compressible, spontaneous, phasic, competent and demonstrates normal augmentation. T/P Trunk is compressible. PTV is compressible. RT PerV is compressible. Procedure This is a venous duplex using B-mode, color flow and spectral Doppler. Exam performed in department. A preliminary report was called and/or faxed to Dr. Zimmer. VL/Venous Duplex US, Unilateral Interpretation Summary Deep veins of the right lower extremity are patent and compressible segmentally. There is no evidence of right lower extremity deep vein thrombosis. Valvular competence appears intact within the proximal deep venous system on the right . The right great saphenous vein appears patent and compressible segmentally. The left common femoral vein is patent and compressible . Ordering Physician: Emiliano Zimmer Referring Physician: Emiliano Zimmer Performed By: Ninoska Olmos RVT 07/29/24 1534 Date Jeferson Mary MD CC: Dr. Emiliano Zimmer MD Date Dictated: 07/29/241515 Date Transcribed: 07/29/241533 Sap Architect: Signed Normal Venous duplex ultrasound rep ortOrdered By: Jeferson Mary on 07-29-2024 US Vein [facility] [address] [place] [address] Venous Duplex US, Unilateral 07/29/241515 MR#: [id number] Acct: [id number] Name: WILDER GIBSON Rep #:[id number] : 1980 44 From: Jeferson Mary MD Attending Dr: Dr. Emiliano Zimmer MD Status: REG CLI Ordering Dr: Emiliano Zimmer MD Date: 07/29/24 Location: [facility] Sex: M C Admitted: Reason For Study Reason For Study: Right leg swelling RIGHT LEFT GSV is normal. CFV is compressible, spontaneous, phasic, competent, CFV is compressible, spontaneous, phasic, competent and demonstrates normal augmentation. and demonstrates normal augmentation. FV is compressible, spontaneous, phasic, competent and demonstrates normal augmentation. POP V is compressible, spontaneous, phasic, competent and demonstrates normal augmentation. T/P Trunk is compressible. PTV is compressible. RT PerV is compressible. Procedure This is a venous duplex using B-mode, color flow and spectral Doppler. Exam performed in department. A preliminary report was called and/or faxed to Dr. Zimmer. VL/Venous Duplex US, Unilateral Interpretation Summary Deep veins of the right lower extremity are patent and compressible segmentally.There is no evidence of right lower extremity deep vein thrombosis. Valvular competence appears intact within the proximal deep venous system on the right . The right great saphenous vein appears patent and compressible segmentally. The left common femoral vein is patent and compressible . Ordering Physician: Emiliano Zimmer Referring Physician: Emiliano Zimmer Performed By: Ninoska Olmos Vee 07/29/24 1534 Date _ Jeferson Mary MD CC: Dr. Emiliano Zimmer MD ~ Date Dictated: 07/29/246 Date Transcribed: 07/29/241533 Sap Architect: Signed Other CNOVon 11-01-2023 CNOV Office Visit (SPRTST ) -------- WILDER GIBSON ([id number]) 1980 M Date Time Provider Department 11/01/23 9:00 AM PRUDENCE ORLANDO SPRTST During your visit today, we recorded the following information about you: Prudence Orlando MD 11/01/2023 9:06 AM Signed DATE OF SURGERY: 09/26/2004 SURGEON: Samm Olson M.D. OPERATION: 1. Left knee arthroscopy. 2. ACL reconstruction with auto autologous semitendinosus and gracilis grafts. 3. Left knee lateral meniscal debridement. DATE OF PROCEDURE: September 30, 2023 OPERATION: 1. Left knee arthroscopy and partial lateral meniscectomy 2. Diagnostic arthroscopy 3. Examination under anesthesia. Interval history: Wilder Gibson returns today status post left knee surgery. Chief complaint is left knee resolved pain. Doing well . Review of Systems: CV: No chest pain Pulm: No short of breath HEENT: No head ache General: no fevers, chills, nausea/vomiting, malaise Physical Examination: This is a well appearing, well nourished patient in no acute distress. Head is normocephalic and atraumatic. White sclera and pink conjunctiva. Mucous membranes are moist. Breathes easily and has normal chest wall excursion. Affect is normal. left knee: Range of motion: Flexion is full, extension is full . Effusion: none +. Incisions: none . No infection. Imaging: none Impression: Wilder Gibson is a 43 year old male, who is 1 month status post left knee partial lateral meniscectomy. Doing great . Plan: PT return to clinic as necessary Release to work Prudence Orlando MD Referring Provider: SELF [200] Allergies As of Date: 11/01/2023 Noted Allergy Reaction PERCOCET (OXYCODONE-ACETAMINOPHEN )09/18/2004 Comments: Patient states eye roll up Date Reviewed: 11/01/2023 Reviewed by: Miya Motley MA - Fully Assessed Reason for Visit: Established Patient [175] Post Op [174] Primary Visit Diagnosis:S/P arthroscopic partial lateral meniscectomy of left knee [Z98.890, Z87.828] Prescriptions as of 11/01/2023 - naproxen (NAPROSYN) 500 mg tablet Take 1 tablet by mouth two times a day with meals. Take with food - OMEPRAZOLE ORAL Take by mouth. - montelukast sodium (SINGULAIR ORAL) Take by mouth. - cholecalciferol (VITAMIN D3) 50,000 units capsule Take by mouth one time only. - BUDESONIDE ORAL Take by mouth. - losartan potassium (LOSARTAN ORAL) Take by mouth. Problem List As Of Date 11/01/2023 Noted Resolved SPRAIN CRUCIATE LIG KNEE [S83.509A] 09/18/2004 TEAR MENISCUS NEC-CURRENT [INB1699] 09/18/2004 SCROTAL VARICES [I86.1] 09/09/2008 Reflux [UKI6716] Fertility testing [Z31.41] 06/03/2012 Class 1 obesity due to excess calories without *09/18/2023 HTN (hypertension) [I10] 09/18/2023 Asthma [J45.909] 09/18/2023 GERD (gastroesophageal reflux disease) [K21.9] 09/18/2023 Encounter Status:Closed by PRUDENCE ORLANDO on 11/01/23 Normal [facility] CNOVon 10-11-2023 CNOV Office Visit (ORTHST ) -------- WILDER GIBSON ([id number]) 1980 M Date Time Provider Department 10/11/23 9:30 AM JOHNNY ANTONIO During your visit today, we recorded the following information about you: Johnny Antonio PA-C 10/11/2023 9:49 AM Signed DATE OF PROCEDURE: September 30, 2023 OPERATION: 1. Left knee arthroscopy and partial lateral meniscectomy 2. Diagnostic arthroscopy 3. Examination under anesthesia. Interval history: Wilder Gibson returns today status post left knee surgery. The patient reports resolution of his preoperative knee pain. He does have some distal thigh pain that is intermittent. This pain occurs when rising from a seated position and will then resolve without intervention. He has begun physical therapy and booster. The patient denies fever, chest pain, shortness of breath, or calf pain. Review of Systems: CV: No chest pain Pulm: No short of breath HEENT: No head ache General: no fevers, chills, nausea/vomiting, malaise Physical Examination: This is a well appearing, well nourished patient in no acute distress. Head is normocephalic and atraumatic. White sclera and pink conjunctiva. Mucous membranes are moist. Breathes easily and has normal chest wall excursion. Affect is normal. Left knee: There is a trace effusion present. The patient is able for straight leg raise. Active range of motion 0-130 degrees. Incision sites are well-approximated no clinical signs of infection. Examination of the distal aspect the left thigh reveals no obvious deformity or ecchymosis. Palpation of the distal aspect of the left thigh reveals no significant tenderness or deformity. Bilateral calves are soft and nontender to palpation. Negative Homans' sign. Imaging: There is no imaging to review during this encounter. Impression: Wilder Gibson is a 43 year old male, who is 11 days status post left partial lateral meniscectomy. There is no concern postop infection or DVT. The patient's distal quad soreness is muscular in nature and likely due to the leg schmidt used during surgery. The patient is told this will improve over time. Plan: 1. The patient's steri strips are changed today. Postoperative incision care was reviewed. 2. Continue to utilize oral NSAIDs as needed. 3. The patient is encouraged to continue physical therapy. 4. The patient will follow up with Dr. Orlando approximately 1 month following surgery. Radiographs will not be required for this appointment. Johnny Antonio PA-C I spent a total of 30 minutes on the date of the service which included preparing to see the patient, [id number] patient care, and completing clinical documentation. Johnny Antonio PA-C 10/11/2023 9:45 AM Signed Thank you for seeing us today in the Orthopaedics Department. Please set up your follow up appointments as directed before leaving today. You should follow-up with Dr. Orlando 4 weeks following surgery. You should follow-up with physical therapy as instructed. Appointment Line : [phone] Physical Therapy: [phone] Radiology: [phone] Incision: Your Steri Strips may remain in place until they fall off. Do not pick them off. Do not apply lotions or ointments to your incision site. You may allow your incision to get wet in the shower. Soap and water may run over the incision: DO NOT SCRUB THE INCISION. You should not soak you incision until you are 4 weeks removed from surgery. This would include baths, swimming pools, hot tubs, lakes, or the ocean. Please contact the office for any redness surrounding your incision, excessive drainage from your incision, or separation of your wound edges. Activity: Continue to perform your home exercise program. Your exercises will be advanced by physical therapy. General Instructions: You may continue to utilize ice to control pain and swelling. Do not apply ice to an open wound or healing skin or to any area with decreased sensation. If your skin is sensitive to the cold you may put a thin cloth barrier between your skin and the ice bag. PLEASE ICE FOR 20-30 MINUTES, 2-3 TIMES PER DAY. If you have continued swelling, also be sure to ELEVATE YOUR LEG ABOVE THE LEVEL OF YOUR HEART while icing. Medication: If you no longer require your narcotic pain medication, do not take it. You may continue to use anti-inflammatory medications. These are also called NSAIDs. Common names include Ibuprofen, Motrin, Advil, Aleve, Naproxen Sodium. If you have an allergy to NSAIDS, kidney disease or a stomach ulcer do NOT take NSAIDs. Common dosages include: 1.Ibuprofen (Advil, Motrin) 400 mg may be taken every 6-8 hours, as needed for pain. These should be taken with food. 2.Naproxen Sodium (Aleve) 220mg may be taken every 12 hours, as needed for pain. These should also be taken with food. DO NOT TAKE BOTH IBUPROFEN AND NAPROXEN AT THE (more content not included)... Normal [facility] ANES POSTPROC EVALon 024 ANES POSTPROC EVAL HNO ID: [id number] Author: IVET CORDOBA MD Service: Anesthesiology Author Type: Anesthesiologist Type: Anesthesia Postprocedure Evaluation Filed: 09/30/2023 13:34 Note Text: POST ANESTHESIA EVALUATION NOTE : 1980 Procedure Summary Date: 09/30/23 Room / Location: [place] [address] / [facility] Anesthesia Start: 1214 Anesthesia Stop: 1327 Procedure: ARTHROSCOPY KNEE MENISCECTOMY MEDIAL OR LATERAL (Left: Knee) Diagnosis: Chronic pain of left knee (Chronic pain of left knee [M25.562, G89.29]) Surgeons: Prudence Orlando MD Responsible Provider: Ivet Cordoba MD Anesthesia Type: general ASA Status: 2 Anesthesia Type: general Airway Type: LMA Last Vitals Vitals Value Taken Time BP 127/69 09/30/23 1330 Temp 36.7 ?C (98 ?F) 09/30/23 1330 Pulse 67 09/30/23 1332 Resp 13 09/30/23 1332 SpO2 94 % 09/30/23 1332 Vitals shown include unfiled device data. Post Anesthesia Patient Status Patient Evaluation: PACU. PACU/ICU Patient Condition: stable. Anticipated Disposition: phase 2 then home. Neurological Status: aware and responsive. Pulmonary Status: breathing comfortably on room air Airway Control: returned to baseline unsupported. Cardiovascular Status: stable. Pain Management: clinically adequate - multimodal analgesia pain management approach Postoperative Hydration: acceptable. Intraoperative Events: no significant anesthesia events Recommendation: continue current plan of care. Anesthesia Observations No Documentation SIGNATURE: Ivet Cordoba MD PATIENT NAME: Wilder Gibson DATE: September 30, 2023 TIME: 1:33 PM CSN: [id number] [facility] ANES PRE-OPon 09-30-2023 ANES PRE-OP HNO ID: [id number] Author: IVET CORDOBA MD Service: Anesthesiology Author Type: Anesthesiologist Type: Anesthesia Preprocedure Evaluation Filed: 09/30/2023 10:53 Note Text: ANESTHESIOLOGY DAY OF SURGERY NOTE : 1980 Procedure Information Date/Time: 09/30/23 1155 Procedure: ARTHROSCOPY KNEE MENISCECTOMY MEDIAL OR LATERAL (Left: Knee) - left knee arthroscopy and partial lateral meniscectomy. Location: [id number] / [facility] Surgeons: Prudence Orlando MD Estimated body mass index is 32.36 kg/m? as calculated from the following: Height as of this encounter: 180.3 cm (5' 11). Weight as of this encounter: 105.2 kg (232 lb). Most recent hematocrit and potassium results: No results found for this basename: HCT,HEMATOCRIT,K,POTASSI UM Relevant Problems CARDIO (+) HTN (hypertension) (+) Scrotal varices GI (+) GERD (gastroesophageal reflux disease) PULMONARY (+) Asthma I - PHYSICAL EVALUATION AIRWAY Patient intubated: No. Tracheostomy tube not present Mallampati: II. TM distance: >3 FB. Neck ROM: full ROM without neurological symptoms. Mouth opening: adequate. Short neck: no. Thick neck: no DENTAL Dental findings: teeth intact. Additional exam findings: yes. CARDIOVASCULAR Normal cardiovascular observations. Rhythm: regular Rate: normal PULMONARY Normal pulmonary observations. Breath sounds clear to auscultation. II - ANESTHESIA PLAN ASA Score: 2 Anesthetic Plan: general Airway type: LMA NPO Status: adequate Beta Cherelle Monitoring Plan Monitoring plan: Standard ASA. Post Procedure Analgesic Plan Postoperative analgesic plan: parenteral or oral opioids and multimodal analgesia. Informed Consent Anesthetic risks, benefits, alternatives, personnel and consent discussed: yes. Patient / Responsible Green Party agrees to proceed: yes Patient / Surrogate agrees to blood products: yes DNR status not reviewed with patient and/or family prior to surgery. Significant changes in the patient condition since the History and Physical, not otherwise documented in primary service progress note: no. Potential Anesthesia issues that may suggest increased risk of complications or contraindication to planned procedure: none. Vitals Value Taken Time BP 154/91 09/30/23 1011 Pulse 57 09/30/23 1011 Resp 16 09/30/23 1011 Temp 36.6 ?C (97.9 ?F) 09/30/23 1011 SpO2 97 % 09/30/23 1011 Facility-Administered Medications as of 09/30/2023 Medication Dose Route Frequency - lidocaine 10 mg/mL (1 %) 1-2 mg injection (XYLOCAINE) 0.1-0.2 mL INTRADERMAL PRN - lactated ringers iv infusion 5-30 mL/hr INTRAVENOUS CONTINUOUS - NaCl 0.9% iv flush bag 20 mL INTRAVENOUS PRN Outpatient Medications as of 09/30/2023 Medication Sig - naproxen (NAPROSYN) 500 mg tablet Take 1 tablet by mouth two times a day with meals. Take with food - HYDROcodone-acetaminophe n (NORCO) 5-325 mg per tablet Take 1 tablet by mouth every 8 hours as needed for pain (Take lowest effective dose. Do not take with alcohol or sleep aids.) for up to 3 days. I have interviewed and examined the patient. I have reviewed the medical record and/or the pre-anesthesia evaluation, pertinent labs, and test results. This contains updated information obtained within 48 hours of Surgery/Procedure. SIGNATURE: Ivet Cordoba MD PATIENT NAME: Wilder Gibson DATE: September 30, 2023 TIME: 10:53 AM CSN: [id number] [facility] BRIEF OP NOTon 09-30-2023 BRIEF OP NOT HNO ID: [id number] Author: NEEL DAVIES MD Service: ? Author Type: Fellow Type: Brief Op Note Filed: 09/30/2023 13:25 Note Text: BRIEF OPERATIVE / PROCEDURE NOTE LOG ID: [id number] SURGERY/PROCEDURE DATE: 09/30/2023 INCISION/PROCEDURE START TIME: 12:37 PM INCISION CLOSE/PROCEDURE END TIME: 1:18 PM SURGEON(S)/PROCEDURALIST (S) AND HOGSHEAD WRECKER(S): Surgeon(s) and Role: * Prudence Orlando MD - Primary * Neel Davies MD - Fellow Physician Support Service Tech: Johnny Antonio PA-C SURGERY/PROCEDURE(S): Left knee diagnostic arthroscopy, partial lateral meniscectomy ANESTHESIA: General FINDINGS: See Op note ESTIMATED BLOOD LOSS: 3 mls SPECIMENS: None COMPLICATIONS: None CLOSURE TECHNIQUE: Primary PRE-OP/PRE-PROCEDURE DIAGNOSIS: Left knee lateral meniscus complex tear POST-OP/POST-PROCEDURE DIAGNOSIS: Same as Preop SIGNATURE: Neel Hillman MD PATIENT NAME: Wilder Gibson DATE: September 30, 2023 TIME: 1:25 PM [facility] HISTORY PHYSICALon HISTORY PHYSICAL HNO ID: [id number] Author: PRUDENCE ORLANDO MD Service: Orthopaedic Surgery Author Type: Physician Type: H&P Filed: 09/30/2023 10:45 Note Text: Patient preoperative HANDP reviewed. No additions or changes. Prudence Orlando MD [facility] NURSING PROGon 09-30-2023 NURSING PROG HNO ID: [id number] Author: NERIS BANERJEE RN Service: ? Author Type: Registered Nurse Type: Nursing Progress Note Filed: 09/30/2023 13:25 Note Text: POST OP LEARNING RESPONSE INSTRUCTION PROVIDED TO: Patient and family member METHOD OF INSTRUCTION: Written instruction/Handouts Verbal instruction PATIENT / FAMILY RESPONSE: Verbalizes understanding of: discharge instructions FOLLOW-UP PLAN: Patient instructed to call with any further issues SUPPLEMENTAL MATERIAL: None REFERRAL (RECOMMENDATION): None Electronically Signed By: Neris Banerjee RN In Department: [facility] AMBULATORY SURGERY - [facility] NURSING PROG HNO ID: [id number] Author: NERIS BANERJEE RN Service: ? Author Type: Registered Nurse Type: Nursing Progress Note Filed: 09/30/2023 10:04 Note Text: PRE OP LEARNING ASSESSMENT PROCEDURE/SURGERY: SURGERY: left knee READINESS TO LEARN COGNITIVE ABILITY: Alert and oriented MOTIVATION TO LEARN: Interested FAMILY SUPPORT: High - Very involved in pt care PATIENT LEARNS BEST BY: Verbal Instruction FACTORS AFFECTING LEARNING: None PHYSICAL LIMITATIONS AFFECTING LEARNING: None Electronically Signed By: Neris Banerjee RN In Department: [facility] AMBULATORY SURGERY - [facility] OPERATIVE NOon 09-30-2023 OPERATIVE NO HNO ID: [id number] Author: PRUDENCE ORLANDO MD Service: Orthopaedic Surgery Author Type: Physician Type: Operative Report Filed: 09/30/2023 14:01 Note Text: OPERATIVE NOTE Wilder Gibson [id number] DATE OF PROCEDURE: September 30, 2023 SURGEON: Prudence Orlando MD HOGSHEAD WRECKER: Neel Hillman MD (Fellow) WALLY Mcintosh 3 (Medical Student) PREOPERATIVE DIAGNOSIS: Left knee lateral meniscus tear POSTOPERATIVE DIAGNOSIS: Left knee lateral meniscus tear OPERATION: 1. Left knee arthroscopy and partial lateral meniscectomy 2. Diagnostic arthroscopy 3. Examination under anesthesia. ANESTHESIA: General laryngeal mask airway COMPLICATIONS: None. SPECIMENS: None. DISPOSITION: The patient to PACU in stable condition. CLINICAL NOTE: Wilder Gibson is a 43 year old male with left knee pain. We explained the risks, benefits, alternative procedures, expected outcomes, as well as well as the length of convalescence and having understood that, informed consent was signed. The patient's operative extremity was marked in the preoperative holding area. The patient did not receive antibiotic prophylaxis as per surgical protocol. The patient was taken to the operating room on September 30, 2023 in stable condition. DESCRIPTION OF OPERATION: Once in operating room, brief time-out was taken by nursing team, Anesthesia, and surgical staff confirming the patient's operative site was the left lower extremity. At this point in time, the patient was placed supine on the operative table. All bony prominences were well padded. IV sedation was given. The patient was asleep. Laryngeal mask airway was inserted, and general inhalation anesthetics were administered for the duration of the case. At this point in time, examination under anesthesia revealed the following findings: 1. Knee range of motion: 0/0/135 degrees 2. No patellofemoral instability. 3. Negative Keaton exam. 4. Negative posterior drawer. 5. Stable varus and valgus stress testing at 0 and 30 degrees. Following examination under anesthesia, patient's nonoperative leg was placed into an Thaddeus stirrup with femoral nerve free from traction, peroneal nerve free from pressure. At this point in time, the operative extremity was placed into a LogoneX leg schmidt with a nonsterile tourniquet applied to the upper thigh. At this point in time, the patient's operative extremity was then prepped and draped in the usual sterile fashion. Portal sites were infiltrated with 0.25% Marcaine and epinephrine. At this point in time, inferomedial, inferolateral, and parapatellar tendon portals were established as well as superolateral outflow portal. Diagnostic arthroscopy was undertaken, revealing the following findings: 1. Patellar articular cartilage: Grade I changes diffusely 2. Trochlea articular cartilage: Normal. 3. Medial femoral condyle articular cartilage: Normal. 4. Medial meniscus: Normal. 5. Medial tibial plateau articular cartilage: Normal. 6. Anterior cruciate ligament: Prior anterior cruciate ligament reconstruction. Great synovialization 7. Posterior cruciate ligament: Normal. 8. Lateral femoral condyle articular cartilage: Normal. 9. Lateral meniscus: longitudinal tear. Unstable. 10. Lateral tibial plateau articular cartilage: Normal. Following diagnostic arthroscopy, we performed a partial lateral meniscectomy with basket punches and dora, removing approximately 30% of the patient's lateral meniscus. This was removed back to a smooth, stable border. At this point in time, the patient's knee was evacuated of all free, loose, floating, meniscal and cartilaginous fragments. The patient's wounds were irrigated and closed in layers. The knee was then injected with 2 mg of Duramorph. The patient was awakened from anesthesia, laryngeal mask airway was removed, and taken to the PACU in stable condition. It should be noted that I was present for and performed the entire procedure. All operative times per Epic brief operative note. The resident/fellow physician was involved in prepping, draping and wound closure. POSTOPERATIVE PLAN: The patient will follow our general knee arthroscopy protocol. Wilder Gibson will be seen approximately 1 week post surgery by the RN or PA-C for wound check and dressing changes. Prudence Orlando MD [facility] HISTORY PHYSICALon HISTORY PHYSICAL HNO ID: [id number] Author: DARIN FLANAGAN APRN.FADIA Service: ? Author Type: Nurse Practitioner Type: H&P Filed: 09/18/2023 19:51 Note Text: HISTORY AND PHYSICAL EXAMINATION SERVICE DATE: 09/18/2023 SERVICE TIME: 7:37 PM PRIMARY CARE PHYSICIAN: No primary care provider on file. Assessment Patient has the following medical conditions which may affect juan m-operative course: Asthma Assessment: Pt reports last rescue inhaler use was several months ago. Takes Singulair nightly. Respirations easy and unlabored during PACC video visit. Class 1 obesity due to excess calories without serious comorbidity with body mass index (BMI) of 33.0 to 33.9 in adult Assessment: Body mass index is 33.47 kg/m?. GERD (gastroesophageal reflux disease) Assessment: Controlled on omeprazole, follows with PCP HTN (hypertension) Assessment: Controlled on losartan, follows with PCP Last 3 Encounter BP Readings: Date: BP: 12/20/2010 120/70 09/25/2010 140/78 09/09/2008 152/76 Bae Activity Status Index: METS: Climb a flight of stairs or walk up a hill (5.50 METs) DASI Score: 5.5 Patient denies any chest pain or undue shortness of breath with the above physical activity. Clinical Frailty Scale: 3. Well, with treated comorbid disease STOP-Bang Score: Has or is being treated for high blood pressure Male patient Denies snoring loudly Denies feeling tired, fatigued, or sleepy during the daytime Has not been observed to stop breathing or choking/gasping during sleep BMI less than or equal to 35 kg/m2 Patient 50 years old or younger Does not have a large neck STOP-Bang Score: 2 [id number] Score: Age: <65 Sex: male CHF history: No Hypertension history: Yes Stroke/TIA/thromboemboli sm history: No Vascular disease history: No Diabetes history: No [id number] Score: 1 ANESTHESIA FINDINGS: Intubation History: No abnormal airway history Significant Anesthesia Considerations: none Airway History: No abnormal airway history I - PHYSICAL EVALUATION AIRWAY Patient intubated: No. Tracheostomy tube not present Mallampati: II. TM distance: >3 FB. Neck ROM: full ROM without neurological symptoms. Mouth opening: adequate. Short neck: no. Thick neck: no Otto present: no Lip Bite Test: II Microretrognathia/Micron agthia/Recessed Chin: No DENTAL Dental findings: teeth intact. II - ANESTHESIA PLAN Anesthetic plan additional comments: *PACC/TCI - anesthesia choice. Beta Cherelle Monitoring Plan Post Procedure Analgesic Plan Prepared for Surgery: optimally prepared for surgery. Labs/EKG not indicated per PACC protocol. CONSULTS: Patient does not require consults for optimization at this time Planned Anesthetic: anesthesia choice The Following Tests/Procedures Have Been Initiated: No orders placed. This is a virtual visit using [employer] video visit. It required patient-provider interaction for the medical decision making as documented below. REASON FOR VISIT: Wilder Gibson is a 43 year old male who is scheduled for Procedure(s) with comments: ARTHROSCOPY KNEE MENISCECTOMY MEDIAL OR LATERAL (Left) - left knee arthroscopy and partial lateral meniscectomy. at the request of Dr. Prudence Orlando for consultation. My final recommendation will be communicated back to the requesting physician by way of shared medical record or letter. Subjective The patient has the following: ACTIVE PROBLEM LIST Sprain of Cruciate Ligament of Knee Other Tear of Cartilage Or Meniscus of Knee, Current Scrotal Varices Reflux Fertility Testing Class 1 Obesity Due to Excess Calories Without Serious Comorbidity With Body Mass Index (Bmi) of 33.0 to 33.9 in Adult Htn (Hypertension) Asthma Gerd (Gastroesophageal Reflux Disease) COVID-19 Immunization Status Overdue - Covid-19 Vaccine (2022- season) Overdue since 01/11/2023 04/11/2021 Imm Admin: COVID-19 original vaccine, full dose, monovalent (MODERNA) 03/14/2021 Imm Admin: COVID-19 original vaccine, full dose, monovalent (MODERNA) CHIEF COMPLAINT: Pre-op evaluation HPI: This 43 year old male is scheduled for the above procedure and presents to the [facility] virtually for pre-operative examination. Patient reports chronic left knee pain that has been present since a fall on ice while hunting in May 2023. Denies fevers, chills, nausea, vomiting, abdominal pain, chest pain, and SOB. This is a virtual visit. The visit was conducted using [employer] video visit. It required patient-provider interaction for the medical decision making as documented below. I have communicated my name and active licensure. The patient's identity and physical location were verified at the time of this visit. Either the patient or their legal disability representative has been informed of the risks and benefits of and alternatives to treatment through a remote evaluation and consents to proceed with the evaluation remotely. REVIEW OF SYS (more content not included)... Normal [facility] CNPNon 09-10-2023 CNPN Telephone (ORQ) -------- WILDER GIBSON ([id number]) 1980 M Date Time Provider Department 09/10/23 PRUDENCE ORLANDO ORQ During your visit today, we recorded the following information about you: Aisha Jauregui 09/10/2023 2:46 PM Signed Patient calling to schedule surgery. Aisha Hampton, SHAHIDA 09/10/2023 5:28 PM Signed Spoke with patient on phone. DOS agreed on 09/30/2023. Discussed preop instructions and the need for P[facility] appt. Patient agreed to purchase Hibiclens OTC. Directions for use reviewed. PT location outside [facility] at [facility]. Advised patient will fax consult and request to schedule PT appt, but advised patient to call there to schedule. Patient has crutches and was advised to bring on DOS. Patient stated his [place] paperwork will need completed by 09/18/2023. He works at [employer]. All questions addressed at this time. [facility] ph [phone]; fax [phone]. Aisha Hampton RN Allergies As of Date: 09/10/2023 Noted Allergy Reaction PERCOCET (OXYCODONE-ACETAMINOPHEN )09/18/2004 Comments: Patient states eye roll up Date Reviewed: 09/06/2023 Reviewed by: Miya Motley MA - Fully Assessed Reason for Visit: Schedule Surgery [1330] Prescriptions as of 09/10/2023 - Ibuprofen 200 mg ORAL Cap Take by mouth. - acetaminophen (TYLENOL EXTRA STRENGTH) 500 mg ORAL tablet Take 500 mg by mouth every 6 hours as needed. - NEXIUM 40 MG CAP as necessary Problem List As Of Date 09/10/2023 Noted Resolved SPRAIN CRUCIATE LIG KNEE [S83.509A] 09/18/2004 TEAR MENISCUS NEC-CURRENT [BPM3456] 09/18/2004 SCROTAL VARICES [I86.1] 09/09/2008 Reflux [CBN7155] Fertility testing [Z31.41] 06/03/2012 Encounter Status:Closed by AISHA HAMPTON on 09/10/23 [facility] CNOVon 09-06-2023 CNOV Office Visit (SPRTST ) -------- WILDER GIBSON ([id number]) 1980 M Date Time Provider Department 09/06/23 2:10 PM PRUDENCE ORLANDO SPRTST During your visit today, we recorded the following information about you: Caryl Javier MD 09/06/2023 3:10 PM Signed New Patient appointment History of present illness: Wilder Gibson is a 43 year old male who comes in today with a chief complaint of left knee pain. The pain is located laterally. This pain has been present for 3 months. This pain occurred with the following preceding injury: Fell on ice while hunting in May . There is pain with squatting. There is not pain at night. Patient has No swelling. There is popping/clicking. There is not locking. There is giving way. Prior treatment history of left ACL reconstruction with partial lateral meniscectomy by Dr. Olson in 2004. Occupation: [employer] Sports/recreational activity/relevant hobbies: hunting, fishing, farming ALLERGIES Allergen Reactions Percocet [Oxycodone* Patient states eye roll up PAST MEDICAL HISTORY Diagnosis Date Reflux PAST SURGICAL HISTORY Procedure Laterality Date APPENDECTOMY ARTHROSCOPY KNEE DIAGNOSTIC W/WO SYNOVIAL BX SPX [id number] Arthroscopy, knee- left Current Outpatient Medications on File Prior to Visit Medication Sig Ibuprofen 200 mg ORAL Cap Take by mouth. (Patient not taking: Reported on 09/06/2023) acetaminophen (TYLENOL EXTRA STRENGTH) 500 mg ORAL tablet Take 500 mg by mouth every 6 hours as needed. (Patient not taking: Reported on 09/06/2023) NEXIUM 40 MG CAP as necessary (Patient not taking: Reported on 09/06/2023) No current facility-administered medications on file prior to visit. FAMILY HISTORY Problem Relation Age of Onset Hypertension Father Diabetes Father None Mother None Sister Social History Tobacco Use Smoking status: Never Smokeless tobacco: Former Types: Chew Quit date: 07/11/2010 Review of Systems: CV: No chest pain Pulm: No short of breath HEENT: No head ache General: no fevers, chills, nausea/vomiting, malaise Physical Examination: This is a well appearing, well nourished patient in no acute distress. Patient's head is normocephalic and atraumatic. Patient has white sclera and pink conjunctiva. Mucous membranes are moist. Patient breathes easily and has normal chest wall excursion. Patient has a Normal. affect. Body habitus normal . Focused exam of the knee: Normal. gait. Knee alignment: neutral . Flexion contracture: None. Range of motion is 0/0/130 . There is pain with patellofemoral compression. There is not pain along patellar facets. No effusion. There is not quadriceps atrophy. There is not patellofemoral crepitance. There is not medial joint line pain on palpation. There is lateral joint line pain on palpation. Ligamentous exam is negative . Mervin's positive . Ipsilateral hip exam: There is good range of motion of the ipsilateral hip. No significant pain or restrictions with range of motion or log-rolling. Good strength. Normal stability. Negative straight leg raise. Contralateral knee exam: Examination of the contralateral knee reveals that there is normal stability, strength, range of motion and no pain on palpation. There is no significant effusion. Sensation grossly intact. Imaging: Outside MRI [facility] was personally reviewed by me. This shows a large lateral meniscus tear involving the anterior horn and body with an unstable flap in the center of the lateral compartment Procedure: None Impression: Wilder Gibson is a 43 year old male with unstable lateral meniscus tear, we discussed treatment options. Given his mechanical symptoms and duration of symptoms as well as appearance on imaging, we would recommend operative management of this. Risk and benefits of the procedure were discussed and informed sent was obtained. Plan will be for left knee arthroscopy with partial lateral meniscectomy. Plan: 1. Return to clinic after surgery. 2. Physical therapy recommendation: None 3. Pharmacologic treatment: None MD Vishal Dubois Lutul D, MD 09/06/2023 3:10 PM Signed DATE OF SURGERY: 09/26/2004 SURGEON: Samm Olson M.D. OPERATION: 1. Left knee arthroscopy. 2. ACL reconstruction with auto autologous semitendinosus and gracilis grafts. 3. Left knee lateral meniscal debridement. Attending Attestation: I have seen and evaluated this patient. I agree with the impression and plan of care as outlined in the Fellow's note. Unstable lateral meniscus tear. I have discussed the risks, benefits, alternative procedures, expected outcomes and the length of convalescence. We have also discussed operative versus nonoperative management. Wilder Gibson understands and would like to proceed with surgical intervention. The plan will be for left knee arthroscopy and (more content not included)... Normal [facility] WILDER GIBSON ([id number]) 1980 M Date Time Provider Department 08/29/23 PRUDENCE ORLANDO [facility] During your visit today, we recorded the following information about you: Aisha Hampton RN 08/29/2023 4:37 PM Signed Left message for patient on voice mail. Advised he has appt next Fri with Dr Orlando. Inquired if patient can overnight (FedEx) the CDs or call and let the office know where the images were taken. The office can call and see if the images of MRI can be pushed electronically. Also will need written MRI report scanned to chart. Requested a call back. SHAHIDA Romero Lisa, RN 08/29/2023 4:37 PM Signed Spoke with patient. Patient stated he has his MRI at [facility]. Advised will need this overnighted to the office to review before clinic appt on 09/05. Stated will call [facility] to have written report faxed. Aisha Hampton RN Allergies As of Date: 08/29/2023 Noted Allergy Reaction PERCOCET (OXYCODONE-ACETAMINOPHEN )09/18/2004 Comments: Patient states eye roll up Date Reviewed: 12/20/2010 Reviewed by: Joslyn Preston Ma - Fully Assessed Reason for Visit: Appointment [186] Prescriptions as of 09/02/2023 - Ibuprofen 200 mg ORAL Cap Take by mouth. - acetaminophen (TYLENOL EXTRA STRENGTH) 500 mg ORAL tablet Take 500 mg by mouth every 6 hours as needed. - NEXIUM 40 MG CAP as necessary Problem List As Of Date 08/29/2023 Noted Resolved SPRAIN CRUCIATE LIG KNEE [S83.509A] 09/18/2004 TEAR MENISCUS NEC-CURRENT [IBQ9768] 09/18/2004 SCROTAL VARICES [I86.1] 09/09/2008 Reflux [DFN5343] Fertility testing [Z31.41] 06/03/2012 Encounter Status:Closed by AISHA HAMPTON on 09/02/23 Normal [facility] Absolute lymphocyte countOrd ered By: Emiliano Zimmer on 04-16-2023 Lymphocytes Auto (Unsp spec) [#/Vol] 2.25 10*3/uL 0.83-4.51 Basophil percentageOrdered B y: Emiliano Zimmer on 04-16-2023 Basophils/100 WBC (Bld) 0.8 % 0-1 Bilirubin [Mass/Vol] 0.50 mg/dL 0.20-1.00 [facility] Comment on above: For patients on eltr ombopag therapy, use of Dimension [place] TBIL is not recommended. Chloride [Moles/Vol] 105 mmol/L 98-107 [facility] Cholesterol [Mass/Vol] 237 mg/dL <200 Comment on above: <200 mg/dL Desirable 200-240 mg/dL Borderline >240 mg/dL High Risk Eosinophils/100 WBC (Bld) 4.2 % 0-5 Glucose [Mass/Vol] 94 mg/dL 74-106 [facility] Neutrophils (Bld) [#/Vol] 3.1 10*3/uL 2.0-7.7 Neutrophils/100 WBC (Bld) 50.0 % 47-70 Potassium [Moles/Vol] 3.8 mmol/L 3.5-5.1 [facility] Protein [Mass/Vol] 7.7 g/dL 6.4-8.2 [facility] Sodium [Moles/Vol] 138 mmol/L 136-145 [facility] Triglyceride [Mass/Vol] 182 mg/dL <199 Comment on above: The drugs N-Acetylcy steine and Metamizole may falsely depress this assay.Serum Triglycerides Reference Interval Normal <150 mg/dL Borderline high 150 - 199 mg/dL High 200 - 499 mg/dL Very High > or = 500 mg/dL WBC (Bld) [#/Vol] 6.2 10*3/uL 4.4-11.0 [facility] Blood erythrocytes count (nu mber/volume)Ordered By: Emiliano Zimmer on 04-16-2023 RBC (Bld) [#/Vol] 5.14 10*6/uL 4.6-6.2 [facility] Blood hemoglobin measurement (mass/volume)Ordered By: Emiliano Zimmer on 04-16-2023 Hemoglobin (Bld) [Mass/Vol] 14.7 g/dL 13.0-16.5 Blood lymphocytes/100 leukoc ytesOrdered By: Emiliano Zimmer on 04-16-2023 Lymphocytes/100 WBC (Bld) 36.1 % 19-41 Blood monocytes/100 leukocyt esOrdered By: Emiliano Zimmer on 04-16-2023 Monocytes/100 WBC (Bld) 8.7 % 0-10 Blood platelet mean volumeOr dered By: Emiliano Zimmer on 04-16-2023 Platelet mean volume (Bld) [Entitic vol] 9.6 fL 6.2-12.0 Determination of erythrocyte mean corpuscular volume (MCV)Ordered By: Emiliano Zimmer on 04-16-2023 MCV (RBC) [Entitic vol] 88.3 fL 80-94 Hematocrit Auto (Bld) [Volum e fraction]Ordered By: Emiliano Zimmer on 04-16-2023 Hematocrit (Bld) [Volume fraction] 45.4 % 40-54 Laboratory - Chemistry and C hemistry - challengeOrdered By: Emiliano Zimmer on 04-16-2023 ALP [Catalytic activity/Vol] 81 U/L 45-117 ALT [Catalytic activity/Vol] 41 U/L 16-61 CO2 [Moles/Vol] 29.0 mmol/L 21.0-32.0 Globulin (S) [Mass/Vol] 3.6 g/dL 2.2-4.2 Urea nitrogen/Creatinine [Mass ratio] 18.6 mg/mg 10-20 Laboratory - Hematology and Cell countsOrdered By: Emiliano Zimmer on 04-16-2023 Erythrocyte distribution width (RBC) [Entitic vol] 41.1 fL 35.1-43.9 Erythrocyte distribution width (RBC) [Ratio] 12.7 % 11.6-14.6 Immature granulocytes/100 WBC (Bld) 0.200 % 0.0-0.9 Comment on above: IG% - Immature Granu locytes (promyelocytes, myelocytes and metamyelocytes) > 1% indicates that a LEFT SHIFT is Present. MCH (RBC) [Entitic mass] 28.6 pg 27.0-32.0 Nucleated RBC/100 WBC (Bld) [Ratio] 0 % 0-5 MCHC Auto (RBC) [Mass/Vol]Or dered By: Emiliano Zimmer on 04-16-2023 MCHC (RBC) [Mass/Vol] 32.4 g/dL 32-36 [facility] No Panel InformationOrdered By: Emiliano Zimmer on 04-16-2023 Estimated GFR (MDRD) Amer 110 mL/min >60 Comment on above: GFR Calc Estimated GFR (MDRD) Non-Af Amer 91 mL/min >60 Comment on above: Non- GFR Calc Vitamin D 25-Hydroxy 27.8 ng/mL [facility] Comment on above: Vitamin D 25(OH) Sta tus Range Deficiency <20 ng/mL (50nmol/L) Insufficiency 20 - 30 ng/mL (50 - 75 nmol/L) Sufficiency 30 - 100 ng/mL (75 - 250 nmol/L) Toxicity >100 ng/mL (>250 nmol/L) Platelets bldOrdered By: Saul Zimmer on 04-16-2023 Platelets (Bld) [#/Vol] 275 10*3/uL 150-450 Serum or plasma albumin jeane urement (mass/volume)Ordered By: Emiliano Zimmer on 04-16-2023 Albumin [Mass/Vol] 4.1 g/dL 3.2-5.0 [facility] Serum or plasma albumin/glob ulin mass ratioOrdered By: Emiliano Zimmer on 04-16-2023 Albumin/Globulin [Mass ratio] 1.1 {ratio} 0.9-2.4 Serum or plasma calcium jeane urement (mass/volume)Ordered By: Emiliano Zimmer on 04-16-2023 Calcium [Mass/Vol] 9.2 mg/dL 8.5-10.1 [facility] Serum or plasma cholesterol in HDL measurement (mass/volume)Ordered By: Emiliano Zimmer on 04-16-2023 Cholesterol in HDL [Mass/Vol] 46 mg/dL >40 Comment on above: The drugs N-Acetylcy steine and Metamizole may falsely depress this assay. Reference Range HDL <40 mg/dL Low HDL Cholesterol HDL >or= 60 mg/dL High HDL Cholesterol Serum or plasma cholesterol in VLDL measurement (mass/volume)Ordered By: Emiliano Zimmer on 04-16-2023 Cholesterol in VLDL [Mass/Vol] 36 mg/dL 5-40 Serum or plasma creatinine m easurement (mass/volume)Ordered By: Emiliano Zimmer on 04-16-2023 Creatinine [Mass/Vol] 0.97 mg/dL 0.70-1.30 [facility] Comment on above: The validity of the calculated GFR & GFRAA in patients over 70 years has not been determined. Clinical correlation is essential. Serum or plasma low density lipoprotein (LDL) cholesterol measurement (mass/volume)Ordered By: Emiliano Zimmer on 04-16-2023 Cholesterol in LDL [Mass/Vol] 155 mg/dL 0-130 Serum or plasma urea nitroge n measurement (mass/volume)Ordered By: Emiliano Zimmer on 04-16-2023 Urea nitrogen [Mass/Vol] 18 mg/dL 7-18 Thin prep Papanicolaou smear with manual screeningOrdered By: Emiliano Zimmer on 04-16-2023 Thin prep Papanicolaou smear with manual screening 15 U/L 15-37 Thin prep Papanicolaou smear with manual screening 4 5-15 Whole blood hemoglobin A1c/t otal hemoglobin ratio (mass fraction)Ordered By: Emiliano Zimmer on 04-16-2023 HbA1c (Bld) [Mass fraction] 6.0 % 3.8-5.6 Comment on above: Normal < 5.7 % Predi abetic 5.7 - 6.4 % Diabetic >or= 6.5 % Please note range changes. Culture, urineOrdered By: Ivan Mera on 02-06-2023 Bacteria identified Cx Nom (U) Culture exhibits no growth. Culture, urineOrdered By: Ivan Mera on 02-05-2023 Bacteria identified Cx Nom (U) Culture exhibits no growth. Absolute lymphocyte countOrd ered By: Emiliano Zimmer on 10-17-2022 Lymphocytes Auto (Unsp spec) [#/Vol] 1.93 10*3/uL 0.83-4.51 Basophil percentageOrdered B y: Emiliano Zimmer on 10-17-2022 Basophils/100 WBC (Bld) 0.6 % 0-1 Bilirubin [Mass/Vol] 0.40 mg/dL 0.20-1.00 [facility] Comment on above: For patients on eltr ombopag therapy, use of Dimension [place] TBIL is not recommended. Chloride [Moles/Vol] 106 mmol/L 98-107 [facility] Cholesterol [Mass/Vol] 215 mg/dL <200 Comment on above: <200 mg/dL Desirable 200-240 mg/dL Borderline >240 mg/dL High Risk Eosinophils/100 WBC (Bld) 4.6 % 0-5 Glucose [Mass/Vol] 154 mg/dL 74-106 [facility] Comment on above: Fasting Glucose resu lt greater than or equal to 126 mg/dL suggests DIABETES MELLITUS per A.D.A. criteria. Neutrophils (Bld) [#/Vol] 2.5 10*3/uL 2.0-7.7 Neutrophils/100 WBC (Bld) 48.9 % 47-70 Potassium [Moles/Vol] 3.8 mmol/L 3.5-5.1 [facility] Protein [Mass/Vol] 7.4 g/dL 6.4-8.2 [facility] Sodium [Moles/Vol] 137 mmol/L 136-145 [facility] Triglyceride [Mass/Vol] 351 mg/dL <199 Comment on above: The drugs N-Acetylcy steine and Metamizole may falsely depress this assay.Serum Triglycerides Reference Interval Normal <150 mg/dL Borderline high 150 - 199 mg/dL High 200 - 499 mg/dL Very High > or = 500 mg/dL WBC (Bld) [#/Vol] 5.0 10*3/uL 4.4-11.0 [facility] Blood erythrocytes count (nu mber/volume)Ordered By: Emiliano Zimmer on 10-17-2022 RBC (Bld) [#/Vol] 4.91 10*6/uL 4.6-6.2 [facility] Blood hemoglobin measurement (mass/volume)Ordered By: Emiliano Zimmer on 10-17-2022 Hemoglobin (Bld) [Mass/Vol] 14.3 g/dL 13.0-16.5 Blood lymphocytes/100 leukoc ytesOrdered By: Emiliano Zimmer on 10-17-2022 Lymphocytes/100 WBC (Bld) 38.5 % 19-41 Blood monocytes/100 leukocyt esOrdered By: Emiliano Zimmer on 10-17-2022 Monocytes/100 WBC (Bld) 7.4 % 0-10 Blood platelet mean volumeOr dered By: Emiliano Zimmer on 10-17-2022 Platelet mean volume (Bld) [Entitic vol] 10.0 fL 6.2-12.0 Determination of erythrocyte mean corpuscular volume (MCV)Ordered By: Emiliano Zimmer on 10-17-2022 MCV (RBC) [Entitic vol] 89.0 fL 80-94 Hematocrit Auto (Bld) [Volum e fraction]Ordered By: Emiliano Zimmer on 10-17-2022 Hematocrit (Bld) [Volume fraction] 43.7 % 40-54 Laboratory - Chemistry and C hemistry - challengeOrdered By: Emiliano Zimmer on 10-17-2022 ALP [Catalytic activity/Vol] 83 U/L 45-117 ALT [Catalytic activity/Vol] 30 U/L 16-61 CO2 [Moles/Vol] 23.0 mmol/L 21.0-32.0 Globulin (S) [Mass/Vol] 3.6 g/dL 2.2-4.2 Urea nitrogen/Creatinine [Mass ratio] 25.3 mg/mg 10-20 Laboratory - Hematology and Cell countsOrdered By: Emiliano Zimmer on 10-17-2022 Erythrocyte distribution width (RBC) [Entitic vol] 42.3 fL 35.1-43.9 Erythrocyte distribution width (RBC) [Ratio] 13.0 % 11.6-14.6 Immature granulocytes/100 WBC (Bld) 0.000 % 0.0-0.9 Comment on above: IG% - Immature Granu locytes (promyelocytes, myelocytes and metamyelocytes) > 1% indicates that a LEFT SHIFT is Present. MCH (RBC) [Entitic mass] 29.1 pg 27.0-32.0 Nucleated RBC/100 WBC (Bld) [Ratio] 0 % 0-5 MCHC Auto (RBC) [Mass/Vol]Or dered By: Emiliano Zimmer on 10-17-2022 MCHC (RBC) [Mass/Vol] 32.7 g/dL 32-36 [facility] No Panel InformationOrdered By: Emiliano Zimmer on 10-17-2022 Estimated GFR (MDRD) Amer 119 mL/min >60 Comment on above: GFR Calc Estimated GFR (MDRD) Non-Af Amer 98 mL/min >60 Comment on above: Non- GFR Calc Thyroid Stimulating Hormone (TSH) 0.97 uIU/mL 0.358-3.74 Vitamin D 25-Hydroxy 64.7 ng/mL [facility] Comment on above: Vitamin D 25(OH) Sta tus Range Deficiency <20 ng/mL (50nmol/L) Insufficiency 20 - 30 ng/mL (50 - 75 nmol/L) Sufficiency 30 - 100 ng/mL (75 - 250 nmol/L) Toxicity >100 ng/mL (>250 nmol/L) Platelets bldOrdered By: Saul Zimmer on 10-17-2022 Platelets (Bld) [#/Vol] 258 10*3/uL 150-450 Serum or plasma albumin jeane urement (mass/volume)Ordered By: Emiliano Zimmer on 10-17-2022 Albumin [Mass/Vol] 3.8 g/dL 3.2-5.0 [facility] Serum or plasma albumin/glob ulin mass ratioOrdered By: Emiliano Zimmer on 10-17-2022 Albumin/Globulin [Mass ratio] 1.1 {ratio} 0.9-2.4 Serum or plasma calcium jeane urement (mass/volume)Ordered By: Emiliano Zimmer on 10-17-2022 Calcium [Mass/Vol] 9.4 mg/dL 8.5-10.1 [facility] Serum or plasma cholesterol in HDL measurement (mass/volume)Ordered By: Emiliano Zimmer on 10-17-2022 Cholesterol in HDL [Mass/Vol] 33 mg/dL >40 Comment on above: The drugs N-Acetylcy steine and Metamizole may falsely depress this assay. Reference Range HDL <40 mg/dL Low HDL Cholesterol HDL >or= 60 mg/dL High HDL Cholesterol Serum or plasma cholesterol in VLDL measurement (mass/volume)Ordered By: Emiliano Zimmer on 10-17-2022 Cholesterol in VLDL [Mass/Vol] 70 mg/dL 5-40 Serum or plasma creatinine m easurement (mass/volume)Ordered By: Emiliano Zimmer on 10-17-2022 Creatinine [Mass/Vol] 0.91 mg/dL 0.70-1.30 [facility] Comment on above: The validity of the calculated GFR & GFRAA in patients over 70 years has not been determined. Clinical correlation is essential. Serum or plasma low density lipoprotein (LDL) cholesterol measurement (mass/volume)Ordered By: Emiliano Zimmer on 10-17-2022 Cholesterol in LDL [Mass/Vol] 112 mg/dL 0-130 Serum or plasma urea nitroge n measurement (mass/volume)Ordered By: Emiliano Zimmer on 10-17-2022 Urea nitrogen [Mass/Vol] 23 mg/dL 7-18 Thin prep Papanicolaou smear with manual screeningOrdered By: Emiliano Zimmer on 10-17-2022 Thin prep Papanicolaou smear with manual screening 15 U/L 15-37 Thin prep Papanicolaou smear with manual screening 8 5-15 Whole blood hemoglobin A1c/t otal hemoglobin ratio (mass fraction)Ordered By: Emiliano Zimmer on 10-17-2022 HbA1c (Bld) [Mass fraction] 6.1 % 3.8-5.6 Comment on above: Normal < 5.7 % Predi abetic 5.7 - 6.4 % Diabetic >or= 6.5 % Please note range changes. Absolute lymphocyte countOrd ered By: Dr. Zimmer on 07-20-2022 Lymphocytes Auto (Unsp spec) [#/Vol] 1.71 10*3/uL 0.83-4.51 Basophil percentageOrdered B y: Dr. Zimmer on 07-20-2022 Basophils/100 WBC (Bld) 0.8 % 0-1 Bilirubin [Mass/Vol] 0.60 mg/dL 0.20-1.00 [facility] Comment on above: For patients on eltr ombopag therapy, use of Dimension [place] TBIL is not recommended. Chloride [Moles/Vol] 106 mmol/L 98-107 [facility] Cholesterol [Mass/Vol] 200 mg/dL <200 Comment on above: <200 mg/dL Desirable 200-240 mg/dL Borderline >240 mg/dL High Risk Eosinophils/100 WBC (Bld) 4.3 % 0-5 Glucose [Mass/Vol] 107 mg/dL 74-106 [facility] Comment on above: Fasting Glucose resu lt from 100 to 125 mg/dL suggests IMPAIRED HOMEOSTASIS per A.D.A. criteria. Neutrophils (Bld) [#/Vol] 1.6 10*3/uL 2.0-7.7 Neutrophils/100 WBC (Bld) 39.7 % 47-70 Potassium [Moles/Vol] 4.2 mmol/L 3.5-5.1 [facility] Protein [Mass/Vol] 7.2 g/dL 6.4-8.2 [facility] Sodium [Moles/Vol] 141 mmol/L 136-145 [facility] Triglyceride [Mass/Vol] 63 mg/dL <199 Comment on above: The drugs N-Acetylcy steine and Metamizole may falsely depress this assay.Serum Triglycerides Reference Interval Normal <150 mg/dL Borderline high 150 - 199 mg/dL High 200 - 499 mg/dL Very High > or = 500 mg/dL WBC (Bld) [#/Vol] 4.0 10*3/uL 4.4-11.0 [facility] Blood erythrocytes count (nu mber/volume)Ordered By: Dr. Zimmer on 07-20-2022 RBC (Bld) [#/Vol] 5.05 10*6/uL 4.6-6.2 [facility] Blood hemoglobin measurement (mass/volume)Ordered By: Dr. Zimmer on 07-20-2022 Hemoglobin (Bld) [Mass/Vol] 14.6 g/dL 13.0-16.5 Blood lymphocytes/100 leukoc ytesOrdered By: Dr. Zimmer on 07-20-2022 Lymphocytes/100 WBC (Bld) 43.1 % 19-41 Blood monocytes/100 leukocyt esOrdered By: Dr. Zimmer on 07-20-2022 Monocytes/100 WBC (Bld) 12.1 % 0-10 Blood platelet mean volumeOr dered By: Dr. Zimmer on 07-20-2022 Platelet mean volume (Bld) [Entitic vol] 9.5 fL 6.2-12.0 Determination of erythrocyte mean corpuscular volume (MCV)Ordered By: Dr. Zimmer on 07-20-2022 MCV (RBC) [Entitic vol] 88.5 fL 80-94 Hematocrit Auto (Bld) [Volum e fraction]Ordered By: Dr. Zimmer on 07-20-2022 Hematocrit (Bld) [Volume fraction] 44.7 % 40-54 Laboratory - Chemistry and C hemistry - challengeOrdered By: Dr. Zimmer on 07-20-2022 ALP [Catalytic activity/Vol] 76 U/L 45-117 ALT [Catalytic activity/Vol] 41 U/L 16-61 CO2 [Moles/Vol] 26.0 mmol/L 21.0-32.0 Globulin (S) [Mass/Vol] 3.2 g/dL 2.2-4.2 Urea nitrogen/Creatinine [Mass ratio] 12.3 mg/mg 10-20 Laboratory - Hematology and Cell countsOrdered By: Dr. Zimmer on 07-20-2022 Erythrocyte distribution width (RBC) [Entitic vol] 40.1 fL 35.1-43.9 Erythrocyte distribution width (RBC) [Ratio] 12.4 % 11.6-14.6 Immature granulocytes/100 WBC (Bld) 0.000 % 0.0-0.9 Comment on above: IG% - Immature Granu locytes (promyelocytes, myelocytes and metamyelocytes) > 1% indicates that a LEFT SHIFT is Present. MCH (RBC) [Entitic mass] 28.9 pg 27.0-32.0 Nucleated RBC/100 WBC (Bld) [Ratio] 0 % 0-5 [facility] Auto (RBC) [Mass/Vol]Or dered By: Dr. Zimmer on 07-20-2022 MCHC (RBC) [Mass/Vol] 32.7 g/dL 32-36 [facility] No Panel InformationOrdered By: Dr. Zimmer on 07-20-2022 Estimated GFR (MDRD) Amer 91 mL/min >60 Comment on above: GFR Calc Estimated GFR (MDRD) Non-Af Amer 76 mL/min >60 Comment on above: Non- GFR Calc Thyroid Stimulating Hormone (TSH) 0.66 uIU/mL 0.358-3.74 Vitamin D 25-Hydroxy 84.2 ng/mL [facility] Comment on above: Vitamin D 25(OH) Sta tus Range Deficiency <20 ng/mL (50nmol/L) Insufficiency 20 - 30 ng/mL (50 - 75 nmol/L) Sufficiency 30 - 100 ng/mL (75 - 250 nmol/L) Toxicity >100 ng/mL (>250 nmol/L) Platelets bldOrdered By: Dr. Zimmer on 07-20-2022 Platelets (Bld) [#/Vol] 280 10*3/uL 150-450 Serum or plasma albumin jeane urement (mass/volume)Ordered By: Dr. Zimmer on 07-20-2022 Albumin [Mass/Vol] 4.0 g/dL 3.2-5.0 [facility] Serum or plasma albumin/glob ulin mass ratioOrdered By: Dr. Zimmer on 07-20-2022 Albumin/Globulin [Mass ratio] 1.2 {ratio} 0.9-2.4 Serum or plasma calcium jeane urement (mass/volume)Ordered By: Dr. Zimmer on 07-20-2022 Calcium [Mass/Vol] 9.2 mg/dL 8.5-10.1 [facility] Serum or plasma cholesterol in HDL measurement (mass/volume)Ordered By: Dr. Zimmer on 07-20-2022 Cholesterol in HDL [Mass/Vol] 38 mg/dL >40 Comment on above: The drugs N-Acetylcy steine and Metamizole may falsely depress this assay. Reference Range HDL <40 mg/dL Low HDL Cholesterol HDL >or= 60 mg/dL High HDL Cholesterol Serum or plasma cholesterol in VLDL measurement (mass/volume)Ordered By: Dr. Zimmer on 07-20-2022 Cholesterol in VLDL [Mass/Vol] 13 mg/dL 5-40 Serum or plasma creatinine m easurement (mass/volume)Ordered By: Dr. Zimmer on 07-20-2022 Creatinine [Mass/Vol] 1.14 mg/dL 0.70-1.30 [facility] Comment on above: The validity of the calculated GFR & GFRAA in patients over 70 years has not been determined. Clinical correlation is essential. Serum or plasma low density lipoprotein (LDL) cholesterol measurement (mass/volume)Ordered By: Dr. Zimmer on 07-20-2022 Cholesterol in LDL [Mass/Vol] 149 mg/dL 0-130 Serum or plasma urea nitroge n measurement (mass/volume)Ordered By: Dr. Zimmer on 07-20-2022 Urea nitrogen [Mass/Vol] 14 mg/dL 7-18 Thin prep Papanicolaou smear with manual screeningOrdered By: Dr. Zimmer on 07-20-2022 Thin prep Papanicolaou smear with manual screening 23 U/L 15-37 Thin prep Papanicolaou smear with manual screening 9 5-15 Whole blood hemoglobin A1c/t otal hemoglobin ratio (mass fraction)Ordered By: Dr. Zimmer on 07-20-2022 HbA1c (Bld) [Mass fraction] 5.9 % 3.8-5.6 Comment on above: Normal < 5.7 % Predi abetic 5.7 - 6.4 % Diabetic >or= 6.5 % Please note range changes. No Panel InformationOrdered By: Dr. Dc on 07-02-2022 Endomysial IgA Antibody Negative Negative Vitamin D 25-Hydroxy 56.9 ng/mL [facility] Comment on above: Vitamin D 25(OH) Sta tus Range Deficiency <20 ng/mL (50nmol/L) Insufficiency 20 - 30 ng/mL (50 - 75 nmol/L) Sufficiency 30 - 100 ng/mL (75 - 250 nmol/L) Toxicity >100 ng/mL (>250 nmol/L) Serum IgA measurement (units /volume)Ordered By: Dr. Dc on 07-02-2022 IgA Qn (S) 229 mg/dL 90-386 Comment on above: Performed at: [address] [id number] Director: Dami Mahmood PhD, Phone: [phone] Serum tissue transglutaminas e IgA antibody assay (units/volume)Ordered By: Dr. Dc on 07-02-2022 tTG IgA Qn (S) 12 U/mL 0-3 Comment on above: Negative 0 - 3 Weak Positive 4 - 10 Positive >10 Tissue Transglutaminase (tTG) has been identified as the endomysial antigen. Studies have demonstr- ated that endomysial IgA antibodies have over 99% specificity for gluten sensitive enteropathy. Absolute lymphocyte countOrd ered By: Dr. Garcia on 06-13-2022 Lymphocytes Auto (Unsp spec) [#/Vol] 2.28 10*3/uL 0.83-4.51 Basophil percentageOrdered B y: Dr. Garcia on 06-13-2022 Basophils/100 WBC (Bld) 0.7 % 0-1 Chloride [Moles/Vol] 105 mmol/L 98-107 [facility] Eosinophils/100 WBC (Bld) 3.9 % 0-5 Glucose [Mass/Vol] 146 mg/dL 74-106 [facility] Comment on above: Fasting Glucose resu lt greater than or equal to 126 mg/dL suggests DIABETES MELLITUS per A.D.A. criteria. Neutrophils (Bld) [#/Vol] 4.2 10*3/uL 2.0-7.7 Neutrophils/100 WBC (Bld) 54.9 % 47-70 Potassium [Moles/Vol] 3.9 mmol/L 3.5-5.1 [facility] Sodium [Moles/Vol] 140 mmol/L 136-145 [facility] WBC (Bld) [#/Vol] 7.6 10*3/uL 4.4-11.0 [facility] Blood erythrocytes count (nu mber/volume)Ordered By: Dr. Garcia on 06-13-2022 RBC (Bld) [#/Vol] 5.05 10*6/uL 4.6-6.2 [facility] Blood hemoglobin measurement (mass/volume)Ordered By: Dr. Garcia on 06-13-2022 Hemoglobin (Bld) [Mass/Vol] 14.6 g/dL 13.0-16.5 Blood lymphocytes/100 leukoc ytesOrdered By: Dr. Garcia on 06-13-2022 Lymphocytes/100 WBC (Bld) 29.9 % 19-41 Blood monocytes/100 leukocyt esOrdered By: Dr. Garcia on 06-13-2022 Monocytes/100 WBC (Bld) 10.2 % 0-10 Blood platelet mean volumeOr dered By: Dr. Garcia on 06-13-2022 Platelet mean volume (Bld) [Entitic vol] 9.4 fL 6.2-12.0 Determination of erythrocyte mean corpuscular volume (MCV)Ordered By: Dr. Garcia on 06-13-2022 MCV (RBC) [Entitic vol] 88.3 fL 80-94 Hematocrit Auto (Bld) [Volum e fraction]Ordered By: Dr. Garcia on 06-13-2022 Hematocrit (Bld) [Volume fraction] 44.6 % 40-54 Laboratory - Chemistry and C hemistry - challengeOrdered By: Dr. Garcia on 06-13-2022 CO2 [Moles/Vol] 27.0 mmol/L 21.0-32.0 Urea nitrogen/Creatinine [Mass ratio] 23.0 mg/mg 10-20 Laboratory - Hematology and Cell countsOrdered By: Dr. Garcia on 06-13-2022 Erythrocyte distribution width (RBC) [Entitic vol] 39.9 fL 35.1-43.9 Erythrocyte distribution width (RBC) [Ratio] 12.3 % 11.6-14.6 Immature granulocytes/100 WBC (Bld) 0.400 % 0.0-0.9 Comment on above: IG% - Immature Granu locytes (promyelocytes, myelocytes and metamyelocytes) > 1% indicates that a LEFT SHIFT is Present. MCH (RBC) [Entitic mass] 28.9 pg 27.0-32.0 Nucleated RBC/100 WBC (Bld) [Ratio] 0 % 0-5 MCHC Auto (RBC) [Mass/Vol]Or dered By: Dr. Garcia on 06-13-2022 MCHC (RBC) [Mass/Vol] 32.7 g/dL 32-36 [facility] No Panel InformationOrdered By: Dr. Garcia on 06-13-2022 Estimated GFR (MDRD) Amer 118 mL/min >60 Comment on above: GFR Calc Estimated GFR (MDRD) Non-Af Amer 98 mL/min >60 Comment on above: Non- GFR Calc Prostate Specific Antigen Total 0.62 ng/mL 0.0-4.0 Comment on above: This test was perfor med using the TPSA assay method for the[employer] chemistry system. Values obtained with differentassay methods cannot be used interchangably.When changing PSA assays in the course of monitoring apatient, additional sequential testing should be carriedout to confirm baseline values. Platelets bldOrdered By: Dr. Garcia on 06-13-2022 Platelets (Bld) [#/Vol] 282 10*3/uL 150-450 Serum or plasma calcium jeane urement (mass/volume)Ordered By: Dr. Garcia on 06-13-2022 Calcium [Mass/Vol] 9.4 mg/dL 8.5-10.1 [facility] Serum or plasma creatinine m easurement (mass/volume)Ordered By: Dr. Garcia on 06-13-2022 Creatinine [Mass/Vol] 0.91 mg/dL 0.70-1.30 [facility] Comment on above: The validity of the calculated GFR & GFRAA in patients over 70 years has not been determined. Clinical correlation is essential. Serum or plasma urea nitroge n measurement (mass/volume)Ordered By: Dr. Garcia on 06-13-2022 Urea nitrogen [Mass/Vol] 21 mg/dL 7-18 Thin prep Papanicolaou smear with manual screeningOrdered By: Dr. Garcia on 06-13-2022 Thin prep Papanicolaou smear with manual screening 8 5-15 Whole blood hemoglobin A1c/t otal hemoglobin ratio (mass fraction)Ordered By: Dr. Garcia on 06-13-2022 HbA1c (Bld) [Mass fraction] 6.0 % 3.8-5.6 Comment on above: Normal < 5.7 % Predi abetic 5.7 - 6.4 % Diabetic >or= 6.5 % Please note range changes. Absolute lymphocyte counton 12-11-2021 Lymphocytes Auto (Unsp spec) [#/Vol] 2.82 10*3/uL 0.83-4.51 Work Phone: Basophil percentageon 2021 Basophils/100 WBC (Bld) 0.5 % 0-1 Work Phone: Bilirubin [Mass/Vol] 0.50 mg/dL 0.20-1.00 [facility] Work Phone: Comment on above: For patients on eltr ombopag therapy, use of Dimension [place] TBIL is not recommended. Chloride [Moles/Vol] 108 mmol/L 98-107 [facility] Work Phone: Cholesterol [Mass/Vol] 197 mg/dL <200 Work Phone: Comment on above: <200 mg/dL Desirable 200-240 mg/dL Borderline >240 mg/dL High Risk Eosinophils/100 WBC (Bld) 3.5 % 0-5 Work Phone: Glucose [Mass/Vol] 116 mg/dL 74-106 [facility] Work Phone: Comment on above: Fasting Glucose resu lt from 100 to 125 mg/dL suggests IMPAIRED HOMEOSTASIS per A.D.A. criteria. Neutrophils (Bld) [#/Vol] 2.7 10*3/uL 2.0-7.7 Work Phone: Neutrophils/100 WBC (Bld) 42.1 % 47-70 Work Phone: Potassium [Moles/Vol] 3.9 mmol/L 3.5-5.1 [facility] Work Phone: Protein [Mass/Vol] 7.3 g/dL 6.4-8.2 [facility] Work Phone: Sodium [Moles/Vol] 139 mmol/L 136-145 [facility] Work Phone: Triglyceride [Mass/Vol] 176 mg/dL <199 Work Phone: Comment on above: The drugs N-Acetylcy steine and Metamizole may falsely depress this assay.Serum Triglycerides Reference Interval Normal <150 mg/dL Borderline high 150 - 199 mg/dL High 200 - 499 mg/dL Very High > or = 500 mg/dL WBC (Bld) [#/Vol] 6.5 10*3/uL 4.4-11.0 [facility] Work Phone: Blood erythrocytes count (nu mber/volume)on 12-11-2021 RBC (Bld) [#/Vol] 5.12 10*6/uL 4.6-6.2 [facility] Work Phone: Blood hemoglobin measurement (mass/volume)on 12-11-2021 Hemoglobin (Bld) [Mass/Vol] 14.7 g/dL 13.0-16.5 Work Phone: [phone] Blood lymphocytes/100 leukoc yteson 12-11-2021 Lymphocytes/100 WBC (Bld) 43.4 % 19-41 Work Phone: Blood monocytes/100 leukocyt eson 12-11-2021 Monocytes/100 WBC (Bld) 10.3 % 0-10 Work Phone: Blood platelet mean volumeon 12-11-2021 Platelet mean volume (Bld) [Entitic vol] 9.1 fL 6.2-12.0 Work Phone: Determination of erythrocyte mean corpuscular volume (MCV)on 12-11-2021 MCV (RBC) [Entitic vol] 87.3 fL 80-94 Work Phone: Hematocrit Auto (Bld) [Volum e fraction]on 12-11-2021 Hematocrit (Bld) [Volume fraction] 44.7 % 40-54 Work Phone: Laboratory - Chemistry and C hemistry - challengeon 12-11-2021 ALP [Catalytic activity/Vol] 69 U/L 45-117 Work Phone: ALT [Catalytic activity/Vol] 37 U/L 16-61 Work Phone: CO2 [Moles/Vol] 27.0 mmol/L 21.0-32.0 Work Phone: Globulin (S) [Mass/Vol] 3.3 g/dL 2.2-4.2 Work Phone: Urea nitrogen/Creatinine [Mass ratio] 21.6 mg/mg 10-20 Work Phone: Laboratory - Hematology and Cell countson 12-11-2021 Erythrocyte distribution width (RBC) [Entitic vol] 42.3 fL 35.1-43.9 Work Phone: Erythrocyte distribution width (RBC) [Ratio] 13.2 % 11.6-14.6 Work Phone: Immature granulocytes/100 WBC (Bld) 0.200 % 0.0-0.9 Work Phone: Comment on above: IG% - Immature Granu locytes (promyelocytes, myelocytes and metamyelocytes) > 1% indicates that a LEFT SHIFT is Present. MCH (RBC) [Entitic mass] 28.7 pg 27.0-32.0 Work Phone: Nucleated RBC/100 WBC (Bld) [Ratio] 0 % 0-5 [facility] Work Phone: MCHC Auto (RBC) [Mass/Vol]on 12-11-2021 MCHC (RBC) [Mass/Vol] 32.9 g/dL 32-36 [facility] Work Phone: No Panel Informationon 12-11 Estimated GFR (MDRD) Amer 117 mL/min >60 Work Phone: Comment on above: GFR Calc Estimated GFR (MDRD) Non-Af Amer 96 mL/min >60 Work Phone: Comment on above: Non- GFR Calc Platelets bldon 12-11-2021 Platelets (Bld) [#/Vol] 232 10*3/uL 150-450 Work Phone: Serum or plasma albumin jeane urement (mass/volume)on 12-11-2021 Albumin [Mass/Vol] 4.0 g/dL 3.2-5.0 [facility] Work Phone: Serum or plasma albumin/glob ulin mass ratioon 12-11-2021 Albumin/Globulin [Mass ratio] 1.2 {ratio} 0.9-2.4 Work Phone: Serum or plasma calcium jeane urement (mass/volume)on 12-11-2021 Calcium [Mass/Vol] 9.2 mg/dL 8.5-10.1 [facility] Work Phone: Serum or plasma cholesterol in HDL measurement (mass/volume)on 12-11-2021 Cholesterol in HDL [Mass/Vol] 32 mg/dL >40 Work Phone: Comment on above: The drugs N-Acetylcy steine and Metamizole may falsely depress this assay. Reference Range HDL <40 mg/dL Low HDL Cholesterol HDL >or= 60 mg/dL High HDL Cholesterol Serum or plasma cholesterol in VLDL measurement (mass/volume)on 12-11-2021 Cholesterol in VLDL [Mass/Vol] 35 mg/dL 5-40 Work Phone: Serum or plasma creatinine m easurement (mass/volume)on 12-11-2021 Creatinine [Mass/Vol] 0.92 mg/dL 0.70-1.30 [facility] Work Phone: Comment on above: The validity of the calculated GFR & GFRAA in patients over 70 years has not been determined. Clinical correlation is essential. Serum or plasma low density lipoprotein (LDL) cholesterol measurement (mass/volume)on 12-11-2021 Cholesterol in LDL [Mass/Vol] 130 mg/dL 0-130 Work Phone: Serum or plasma urea nitroge n measurement (mass/volume)on 12-11-2021 Urea nitrogen [Mass/Vol] 20 mg/dL 7-18 Work Phone: Thin prep Papanicolaou smear with manual screeningon 12-11-2021 Thin prep Papanicolaou smear with manual screening 23 U/L 15-37 Work Phone: Thin prep Papanicolaou smear with manual screening 4 5-15 Work Phone: Whole blood hemoglobin A1c/t otal hemoglobin ratio (mass fraction)on 12-11-2021 HbA1c (Bld) [Mass fraction] 6.0 % 3.8-5.6 Work Phone: Comment on above: Normal < 5.7 % Predi abetic 5.7 - 6.4 % Diabetic >or= 6.5 % Please note range changes. No Panel Informationon 10-03 Hepatitis A Antibody Total Negative Negative Work Phone: Comment on above: Performed at: [address] [id number] Director: Dami Mahmood PhD, Phone: [phone] Hepatitis A IgM Antibody Negative Negative Work Phone: Hepatitis B Core IgM Antibody Negative Negative Work Phone: Hepatitis C Antibody (EIA) 0.1 s/co ratio 0.0-0.9 Work Phone: Hepatitis C Antibody Comment Comment . Work Phone: Comment on above: NegativeNot infected with HCV, unless recent infection issuspected or other evidence exists to indicate HCVinfection. Serum hepatitis B virus surf enedina antibody IgG detectionon 10-03-2021 HBV surface IgG Ql (S) Non-Reactive Work Phone: Comment on above: Non Reactive: Incons istent with immunity less than <10 mIU/mL Reactive: Consistent with immunity greater than or equal to 10 mIU/mL Serum or plasma hepatitis B virus surface antigen detection by immunoassayon 10-03-2021 HBV surface Ag IA Ql Negative Negative [facility] Work Phone: Basophil percentageon 2021 Bilirubin [Mass/Vol] 0.50 mg/dL 0.20-1.00 [facility] Work Phone: Comment on above: For patients on eltr ombopag therapy, use of Dimension [place] TBIL is not recommended. Chloride [Moles/Vol] 109 mmol/L 98-107 [facility] Work Phone: Glucose [Mass/Vol] 118 mg/dL 74-106 [facility] Work Phone: Comment on above: Fasting Glucose resu lt from 100 to 125 mg/dL suggests IMPAIRED HOMEOSTASIS per A.D.A. criteria. Potassium [Moles/Vol] 4.0 mmol/L 3.5-5.1 [facility] Work Phone: Protein [Mass/Vol] 6.8 g/dL 6.4-8.2 [facility] Work Phone: Sodium [Moles/Vol] 141 mmol/L 136-145 [facility] Work Phone: Laboratory - Chemistry and C hemistry - challengeon 10-02-2021 ALP [Catalytic activity/Vol] 119 U/L 45-117 Work Phone: ALT [Catalytic activity/Vol] 216 U/L 16-61 Work Phone: CK [Catalytic activity/Vol] 143 U/L 39-308 Work Phone: CO2 [Moles/Vol] 26.0 mmol/L 21.0-32.0 Work Phone: Globulin (S) [Mass/Vol] 3.1 g/dL 2.2-4.2 Work Phone: Urea nitrogen/Creatinine [Mass ratio] 13.7 mg/mg 10-20 Work Phone: No Panel Informationon 10-02 Estimated GFR (MDRD) Amer 104 mL/min >60 Work Phone: Comment on above: GFR Calc Estimated GFR (MDRD) Non-Af Amer 86 mL/min >60 Work Phone: Comment on above: Non- GFR Calc Serum or plasma albumin jeane urement (mass/volume)on 10-02-2021 Albumin [Mass/Vol] 3.7 g/dL 3.2-5.0 [facility] Work Phone: Serum or plasma albumin/glob ulin mass ratioon 10-02-2021 Albumin/Globulin [Mass ratio] 1.2 {ratio} 0.9-2.4 Work Phone: Serum or plasma calcium jeane urement (mass/volume)on 10-02-2021 Calcium [Mass/Vol] 9.0 mg/dL 8.5-10.1 [facility] Work Phone: Serum or plasma creatinine m easurement (mass/volume)on 10-02-2021 Creatinine [Mass/Vol] 1.02 mg/dL 0.70-1.30 [facility] Work Phone: Comment on above: The validity of the calculated GFR & GFRAA in patients over 70 years has not been determined. Clinical correlation is essential. Serum or plasma urea nitroge n measurement (mass/volume)on 10-02-2021 Urea nitrogen [Mass/Vol] 14 mg/dL 7-18 Work Phone: Thin prep Papanicolaou smear with manual screeningon 10-02-2021 Thin prep Papanicolaou smear with manual screening 210 U/L 15-37 Work Phone: Thin prep Papanicolaou smear with manual screening 6 5-15 Work Phone: Basophil percentageon 2021 Bilirubin [Mass/Vol] 0.50 mg/dL 0.20-1.00 [facility] Work Phone: Comment on above: For patients on eltr ombopag therapy, use of Dimension [place] TBIL is not recommended. Chloride [Moles/Vol] 105 mmol/L 98-107 [facility] Work Phone: Cholesterol [Mass/Vol] 267 mg/dL <200 Work Phone: Comment on above: <200 mg/dL Desirable 200-240 mg/dL Borderline >240 mg/dL High Risk Glucose [Mass/Vol] 113 mg/dL 74-106 [facility] Work Phone: Comment on above: Fasting Glucose resu lt from 100 to 125 mg/dL suggests IMPAIRED HOMEOSTASIS per A.D.A. criteria. Potassium [Moles/Vol] 3.9 mmol/L 3.5-5.1 [facility] Work Phone: Protein [Mass/Vol] 7.5 g/dL 6.4-8.2 [facility] Work Phone: Sodium [Moles/Vol] 140 mmol/L 136-145 [facility] Work Phone: Triglyceride [Mass/Vol] 135 mg/dL Work Phone: Comment on above: The drugs N-Acetylcy steine and Metamizole may falsely depress this assay.Serum Triglycerides Reference Interval Normal <150 mg/dL Borderline high 150 - 199 mg/dL High 200 - 499 mg/dL Very High > or = 500 mg/dL Laboratory - Chemistry and C hemistry - challengeon 08-09-2021 ALP [Catalytic activity/Vol] 80 U/L 45-117 Work Phone: ALT [Catalytic activity/Vol] 40 U/L 16-61 Work Phone: CO2 [Moles/Vol] 27.0 mmol/L 21.0-32.0 Work Phone: Globulin (S) [Mass/Vol] 3.3 g/dL 2.2-4.2 Work Phone: Urea nitrogen/Creatinine [Mass ratio] 19.1 mg/mg 10-20 Work Phone: No Panel Informationon 08-09 Estimated GFR (MDRD) Amer 122 mL/min >60 Work Phone: Comment on above: GFR Calc Estimated GFR (MDRD) Non-Af Amer 101 mL/min >60 Work Phone: Comment on above: Non- GFR Calc Serum or plasma albumin jeane urement (mass/volume)on 08-09-2021 Albumin [Mass/Vol] 4.2 g/dL 3.2-5.0 [facility] Work Phone: Serum or plasma albumin/glob ulin mass ratioon 08-09-2021 Albumin/Globulin [Mass ratio] 1.3 {ratio} 0.9-2.4 Work Phone: Serum or plasma calcium jeane urement (mass/volume)on 08-09-2021 Calcium [Mass/Vol] 9.5 mg/dL 8.5-10.1 [facility] Work Phone: Serum or plasma cholesterol in HDL measurement (mass/volume)on 08-09-2021 Cholesterol in HDL [Mass/Vol] 48 mg/dL Work Phone: Comment on above: The drugs N-Acetylcy steine and Metamizole may falsely depress this assay. Reference Range HDL <40 mg/dL Low HDL Cholesterol HDL >or= 60 mg/dL High HDL Cholesterol Serum or plasma cholesterol in VLDL measurement (mass/volume)on 08-09-2021 Cholesterol in VLDL [Mass/Vol] 27 mg/dL 5-40 Work Phone: Serum or plasma creatinine m easurement (mass/volume)on 08-09-2021 Creatinine [Mass/Vol] 0.89 mg/dL 0.70-1.30 [facility] Work Phone: Comment on above: The validity of the calculated GFR & GFRAA in patients over 70 years has not been determined. Clinical correlation is essential. Serum or plasma low density lipoprotein (LDL) cholesterol measurement (mass/volume)on 08-09-2021 Cholesterol in LDL [Mass/Vol] 192 mg/dL 0-130 Work Phone: Serum or plasma urea nitroge n measurement (mass/volume)on 08-09-2021 Urea nitrogen [Mass/Vol] 17 mg/dL 7-18 Work Phone: Thin prep Papanicolaou smear with manual screeningon 08-09-2021 Thin prep Papanicolaou smear with manual screening 23 U/L 15-37 Work Phone: Thin prep Papanicolaou smear with manual screening 8 5-15 Work Phone: Whole blood hemoglobin A1c/t otal hemoglobin ratio (mass fraction)on 08-09-2021 HbA1c (Bld) [Mass fraction] 6.1 % 3.8-5.6 Work Phone: Comment on above: Normal < 5.7 % Predi abetic 5.7 - 6.4 % Diabetic >or= 6.5 % Please note range changes. NM GASTRIC EMPTYING STUDYon 06-25-2019 NM GASTRIC EMPTYING STUDY ORIGINAL NM GASTRIC EMPTYING STUDY Clinical Statement: dysphagia, GERD. Technique: Standard meal consisting of: Radiopharmaceutical: Tc-99m Sulfur Colloid po Dose: 2.0 mCi Tc-99m sulfur colloid in 4 oz of Egg Beaters 2 slices of bread, 2 Tsp of jelly 4 oz of water The patient consumed a suboptimal meal. The patient ate egg beaters but no bread. Anterior and posterior images of the stomach for 4 hours Calculate geometric mean of anterior and posterior images Calculate T 1/2 for gastric emptying Reference: Meghna TL, Wilmar M, Alphonse K, et al. Consensus Recommendations for Gastric Emptying Scintigraphy: A Joint Report of the [place] [employer]gastro[employer]ility Society of Nuclear Medicine. Am J Gastroenterol 2008;[id number]. Report: 30 minutes: 82% Retention. A value lower than 70% suggests rapid gastric emptying. 60 minutes: 73% Retention. A value less than 30% suggests rapid gastric emptying. A value greater than 90% suggests delayed gastric emptying. 120 minutes: 57% Retention. A value greater than 60% suggests delayed gastric emptying. 180 minutes: 19% Retention. A value greater than 30% suggests delayed gastric emptying. 240 minutes: 1% Retention. A value greater than 10% suggests delayed gastric emptying. Linear Fit T half-time was 118 minutes IMPRESSION: No delayed gastric emptying within the limits of a suboptimal meal. I have personally reviewed the images of this examination and agree with the resident's findings and interpretation. Interpreted By: He Payne DO Preliminary Report By: Montrell English MD Electronically Signed By: He Payne DO Dictated Date: 06/25/2019 3:09:21 PM Prelim Date: 06/25/2019 3:12:47 PM Sign Date: 06/25/2019 4:34:23 PM Ordering Provider:Dami Dc [facility] ([place]) Vital Signs Date Time Vital Sign Value Performing Clinician Mahesh glynn 09-18-2023 19:39-0400 Body height 180.[address] [facility] Work Phone: [facility] Comment on above: pt reported 09-18-2023 19:39-0400 Body mass index (BMI) [Ratio] 33.47 kg/m2 [facility] Work Phone: [facility] 09-18-2023 19:39-0400 Body weight 108.86 kg Pac Virtual Work Phone: [facility] Comment on above: pt reported Encounters Encounter Date Encounter Type Care Provider Facility Start: 03-18-2025 ambulatory Emiliano Zimmer Facilit y: Start: 07-29-2024 End: 07-29-[address] Emiliano Zimmer MD Work Phone: Work Phone: Start: 07-29-2024 End: 07-29-[address] Emiliano Zimmer MD -Cardiovascular Services Work Phone: Start: 07-29-2024 End: 07-29-2024 ambulatory Emiliano Zimmer Facility: Start: 11-01-2023 End: 11-01-2023 ambulatory PRUDENCE ORLANDO Facility:[facility] Start: 11-01-2023 End: 11-01-2023 Patient encounter procedure Prudence Orlando MD Work Phone: [facility] Comment on above: S/P arthroscopic par tial lateral meniscectomy of left knee (Primary Dx) Start: 10-11-2023 End: 10-11-2023 ambulatory JOHNNY ANTONIO Facility:[facility] Start: 10-11-2023 End: 10-11-2023 Patient encounter procedure Johnny BE-C Work Phone: Orthopaedics Comment on above: S/P arthroscopic par tial lateral meniscectomy of left knee (Primary Dx) Start: 10-02-2023 Orders Only Johnny Antonio PA-C Work Phone: [facility] Comment on above: S/P arthroscopic par tial lateral meniscectomy of left knee (Primary Dx) Start: 09-30-2023 End: 09-30-2023 ambulatory PRUDENCE ORLANDO Facility:[facility] Start: 09-18-2023 End: 09-18-2023 Admission to establishment [facility] Work Phone: Pre Anesthesia Start: 09-18-2023 Encounter for other preprocedural examination LUTUL FARROW [facility] Start: 09-18-2023 End: 09-18-2023 Evaluation and management of inpatient LUTUL FARROW Facility:[facility] Start: 09-18-2023 End: 09-18-2023 Preprocedural examination done Pac Kristal Kam Work Phone: [facility] Work Phone: Start: 09-18-2023 End: 09-18-2023 Anesthesia consultation Darin Panchito HALL.FINAL ASSEMBLER Work Phone: Pre Anesthesia Comment on above: Pre op instructions Pre-op evaluation (P rimary Dx); Chronic pain of left knee; Class 1 obesity due to excess calories without serious comorbidity with body mass index (BMI) of 33.0 to 33.9 in adult; Hypertension, unspecified type; Asthma, unspecified asthma severity, unspecified whether complicated, unspecified whether persistent; Gastroesophageal reflux disease, unspecified whether esophagitis present Start: 09-18-2023 E-mail encounter fro calvin caregiver Darin Flanagan APRN.FINAL ASSEMBLER Work Phone: Pre Anesthesia Start: 09-10-2023 ambulatory [facility] Provider [facility] Comment on above: Preop Instructions Start: 09-10-2023 E-mail encounter fro m caregiver [facility] Provider [facility] Start: 09-10-2023 Telephone encounter Prudence anguiano MD Work Phone: [facility] [place] Comment on above: Schedule Surgery Start: 09-06-2023 End: 09-06-2023 ambulatory LUTUL FARROW Facility:[facility] Start: 09-06-2023 End: 09-06-2023 Patient encounter procedure Prudence Orlando MD Work Phone: [facility] Comment on above: Chronic pain of left knee (Primary Dx) Start: 08-29-2023 Telephone encounter Prudence anguiano MD Work Phone: [facility] Comment on above: Appointment Start: 04-16-2023 End: 04-16-2023 ambulatory Work Phone: Start: 04-16-2023 End: 04-16-2023 Patient encounter procedure [facility] Work Phone: Start: 02-05-2023 End: 02-05-2023 ambulatory Work Phone: Start: 02-05-2023 End: 02-05-2023 Patient encounter procedure [facility] Work Phone: Start: 10-17-2022 End: 10-17-2022 Patient encounter procedure [facility] Start: 07-20-2022 End: 07-20-[address] Anna Mera Work Phone: Work Phone: Start: 07-20-2022 End: 07-20-[address] Anna Mera Work Phone: [facility] Start: 07-11-2022 Non-patient / Non-visit Dr. Ivan Mera Work Phone: -[facility] Start: 07-11-2022 End: 07-11-[address] Anna Mera Work Phone: Work Phone: Start: 07-11-2022 End: 07-11-[address] Anna Mera Work Phone: -Cardiovascular Services Start: 07-02-2022 End: 07-02-[address] Anna Mera Work Phone: [facility] Start: 06-13-2022 End: 06-13-2022 ambulatory Work Phone: Start: 06-13-2022 End: 06-13-2022 Patient encounter procedure [facility] Start: 12-11-2021 End: 12-11-2021 Patient encounter procedure [facility] Start: 10-03-2021 End: 10-03-2021 Patient encounter procedure [facility] Start: 10-02-2021 End: 10-02-2021 Patient encounter procedure [facility] Start: 08-09-2021 End: 08-09-2021 Patient encounter procedure [facility] Start: 07-13-2021 End: 07-13-2021 Patient encounter procedure -Outpatient Bone Densitometry Procedures Date Procedure Procedure Detail Performing Clinician Start: 02-05-2023 Urine culture Start: 10-17-2022 End: 10-17-2022 Plain x-ray of hand Start: 07-11-2022 Radionuclide imaging of perfusion of myocardium under exercise stress Dr. Anna Mera Work Phone: Start: 07-13-2021 Dual energy X-ray absorptiometry History of operative procedure on knee S/P arthroscopic partial lateral meniscectomy of left knee Johnny Antonio PA-C Work Phone: History of operative procedure on knee S/P arthroscopic partial lateral meniscectomy of left knee Johnny Antonio PA-C Work Phone: History of operative procedure on knee S/P arthroscopic partial lateral meniscectomy of left knee Prudence Orlando MD Work Phone: Plan of Treatment Date Care Activity Detail Author Start: 01-18-2025 Urine microalbumin profile DTaP,Tdap,Td Vaccine (2 - Td or Tdap) [facility] Start: 01-12-2024 Influenza vaccination Influenz a Vaccine (Season Ended) [facility] Start: 11-01-2023 End: 11-01-2023 Patient encounter procedure 11/01/2023 9:00 AM EDT Office Visit [facility] [address] [place] [address] Prudence Orlando MD [address] [place] [address] LEFT KNEE [facility] Comment on above: LEFT KNEE Start: 10-11-2023 End: 10-11-2023 Patient encounter procedure 10/11/2023 9:30 AM EDT Office Visit Orthopaedics [address] [place] [address] Johnny Antonio PA-C [address] [place] [address] LEFT KNEE Orthopa[facility] Comment on above: LEFT KNEE Start: 09-30-2023 End: 09-30-2023 Admission to same day surgery center 09/30/2023 11:10 AM EDT - 09/30/2023 12:40 PM EDT Surgery [facility] Ambulatory Surgery - [facility] [address] [place] [address] Prudence Orlando MD [address] [place] [address] ARTHROSCOPY KNEE MENISCECTOMY MEDIAL OR LATERAL [facility] - [facility] Comment on above: ARTHROSCOPY KNEE MEN ISCECTOMY MEDIAL OR LATERAL Start: 09-30-2023 End: 09-30-2023 Arthrs kne surg w/meniscectomy med/lat w/shvg ARTHROSCOPY KNEE MENISCECTOMY MEDIAL OR LATERAL Chronic pain of left knee 09/30/2023 11:10 AM EDT [facility] Start: 09-30-2023 Subsequent hospital visit by physician 09/30/2023 11:10 AM EDT Hospital Encounter [facility] - [facility] [address] [place] [address] Prudence Orlando MD [address] [place] [address] Chronic pain of left knee [M25.562, G89.29] [facility] Ambulatory Surgery - [facility] Comment on above: Chronic pain of left knee [M25.562, G89.29] Start: 09-06-2023 End: 09-06-2023 Patient encounter procedure 09/06/2023 2:10 PM EDT Office Visit [facility] [id number] [place] [id number] Prudence Orlando MD [address] [place] [address] LEFT KNEE MENISCUS TEAR SURG CONSULT [facility] Comment on above: LEFT KNEE MENISCUS T EAR SURG CONSULT Start: 05-13-2023 Behavioral Health Screening Behavioral Health Screening [facility] Start: 01-11-2023 Covid-19 Vaccine ( season) Covid-19 Vaccine ( season) [facility] Start: 01-11-2023 Covid-19 Vaccine ( season) Covid-19 Vaccine ( season) [facility] Start: 2017 Lipid panel Lipid Screening [facility] Start: 2001 Hepatitis B Vaccine (1 of 3 - 19+ 3-dose series) Hepatitis B Vaccine (1 of 3 - 19+ 3-dose series) [facility] Start: 2001 Urine microalbumin profile DTaP,Tdap,Td Vaccine (1 - Tdap) [facility] Start: 2000 Annual PCP Team Chronic Disease Visit Annual PCP Team Chronic Disease Visit [facility] Start: 2000 BP Controlled (<130/80) BP Controlled (<130/80) [facility] Start: 2000 Hepatitis C screening Hepatitis C Sc jeffrey [facility] Start: 2000 HIV screening HIV Screening [facility] Start: 2000 Spirometry Spirometry [facility] H&P for surgery H&P FOR SURGERY Procedures Routine Chronic pain of left knee Ordered: 09/11/2023 [facility] Work Phone: Comment on above: Ordered: 09/11/2023 Immunizations Immunization Date Immunization Notes Care Provider Fa cility 03-27-2018 influenza virus vacc ine, unspecified formulation Prudence Orlando MD Work Phone: [facility] Payers Date Payer Category Payer Self-pay [id number] 2023 Unknown [employer] [id number] 2023-Present [phone] [address] [facility] [place] [address] PPO [id number] 2023 Unknown [id number] 2015 Unknown [id number] Unknown . [id number] Unknown [facility] DO NOT USE [id number] Unknown [id number] Unknown [id number] Unknown [id number] Social History Date Type Detail Facility Start: 05-04-2019 End: 05-04-2019 Tobacco smoking status [facility] Unknown if ever smoked Start: 04-15-2019 Non-smoker [facility] Start: 1980 Sex Assigned At Male [facility] Start: 09-25-2010 End: 05-04-2019 Tobacco smoking status AZIS Never smoked tobacco [facility] Start: 09-25-2010 Tobacco use and exposure Former smokeless tobacco user [facility] End: 07-11-2010 History of tobacco use Chews Tobacco [facility] Start: 12-27-2021 Alcohol intake Not Asked Irena dias [facility] Start: 1980 Sex Assigned At Not on file [facility] Start: 09-03-2023 End: 09-06-2023 Gender identity Not on file [facility] Start: 09-03-2023 End: 09-06-2023 History of Social function [facility] Adult Depression Screening Assessment 0 [facility] Start: 09-18-2023 End: 09-30-2023 Alcohol intake Ex-drinker (finding) [facility] Start: 08-05-2024 Sex Male (finding) Clinical Notes 08-29-2023 to 11-01-2023 Prudence Orlando MD - 11/01/2023 8:54 AM EDTPatient InstructionsJohnny Antonio PA-C - 10/11/2023 9:34 AM Johnny Traylor PA-C - 10/02/2023 1:11 PM EDTPatient Instructions Note Date & Type Note Facility 11-01-2023 Note HNO ID: [id number] Author: PRUDENCE ORLANDO MD Service: ? Author Type: Physician Type: Progress Notes Filed: 11/01/2023 09:06 Note Text: DATE OF SURGERY: 09/26/2004 SURGEON: Samm Olson M.D. OPERATION: 1. Left knee arthroscopy. 2. ACL reconstruction with auto autologous semitendinosus and gracilis grafts. 3. Left knee lateral meniscal debridement. DATE OF PROCEDURE: September 30, 2023 OPERATION: 1. Left knee arthroscopy and partial lateral meniscectomy 2. Diagnostic arthroscopy 3. Examination under anesthesia. Interval history: Wilder Gibson returns today status post left knee surgery. Chief complaint is left knee resolved pain. Doing well . Review of Systems: CV: No chest pain Pulm: No short of breath HEENT: No head ache General: no fevers, chills, nausea/vomiting, malaise Physical Examination: This is a well appearing, well nourished patient in no acute distress. Head is normocephalic and atraumatic. White sclera and pink conjunctiva. Mucous membranes are moist. Breathes easily and has normal chest wall excursion. Affect is normal. left knee: Range of motion: Flexion is full, extension is full . Effusion: none +. Incisions: none . No infection. Imaging: none Impression: Wilder Gibson is a 43 year old male, who is 1 month status post left knee partial lateral meniscectomy. Doing great . Plan: PT return to clinic as necessary Release to work Prudence Orlando MD [facility] 11-01-2023 History of Presen t illness Narrative DATE OF SURGERY: 09/26/2004 SURGEON: Samm Olson M.D. OPERATION: 1. Left knee arthroscopy. 2. ACL reconstruction with auto autologous semitendinosus and gracilis grafts. 3. Left knee lateral meniscal debridement. DATE OF PROCEDURE: September 30, 2023 OPERATION: 1. Left knee arthroscopy and partial lateral meniscectomy 2. Diagnostic arthroscopy 3. Examination under anesthesia. Interval history: Wilder Gibson returns today status post left knee surgery. Chief complaint is left knee resolved pain. Doing well . Review of Systems: CV: No chest pain Pulm: No short of breath HEENT: No head ache General: no fevers, chills, nausea/vomiting, malaise Physical Examination: This is a well appearing, well nourished patient in no acute distress. Head is normocephalic and atraumatic. White sclera and pink conjunctiva. Mucous membranes are moist. Breathes easily and has normal chest wall excursion. Affect is normal. left knee: Range of motion: Flexion is full, extension is full . Effusion: none +. Incisions: none . No infection. Imaging: none Impression: Wilder Gibson is a 43 year old male, who is 1 month status post left knee partial lateral meniscectomy. Doing great . Plan: PT return to clinic as necessary Release to work Prudence Orlando MD documented in this encounter [facility] 10-11-2023 Instructions Johnny Antonio PA-C - 10/11/2023 9:45 AM EDT Thank you for seeing us today in the Orthopaedics Department. Please set up your follow up appointments as directed before leaving today. You should follow-up with Dr. Orlando 4 weeks following surgery. You should follow-up with physical therapy as instructed. Appointment Line : [phone] Physical Therapy: [phone] Radiology: [phone] Incision: Your Steri Strips may remain in place until they fall off. Do not pick them off. Do not apply lotions or ointments to your incision site. You may allow your incision to get wet in the shower. Soap and water may run over the incision: DO NOT SCRUB THE INCISION. You should not soak you incision until you are 4 weeks removed from surgery. This would include baths, swimming pools, hot tubs, lakes, or the ocean. Please contact the office for any redness surrounding your incision, excessive drainage from your incision, or separation of your wound edges. Activity: Continue to perform your home exercise program. Your exercises will be advanced by physical therapy. General Instructions: You may continue to utilize ice to control pain and swelling. Do not apply ice to an open wound or healing skin or to any area with decreased sensation. If your skin is sensitive to the cold you may put a thin cloth barrier between your skin and the ice bag. PLEASE ICE FOR 20-30 MINUTES, 2-3 TIMES PER DAY. If you have continued swelling, also be sure to ELEVATE YOUR LEG ABOVE THE LEVEL OF YOUR HEART while icing. Medication: If you no longer require your narcotic pain medication, do not take it. You may continue to use anti-inflammatory medications. These are also called NSAIDs. Common names include Ibuprofen, Motrin, Advil, Aleve, Naproxen Sodium. If you have an allergy to NSAIDS, kidney disease or a stomach ulcer do NOT take NSAIDs. Common dosages include: 1.Ibuprofen (Advil, Motrin) 400 mg may be taken every 6-8 hours, as needed for pain. These should be taken with food. 2.Naproxen Sodium (Aleve) 220mg may be taken every 12 hours, as needed for pain. These should also be taken with food. DO NOT TAKE BOTH IBUPROFEN AND NAPROXEN AT THE SAME TIME. If you are currently on a blood thinning medication like coumadin, warfarin, eliquis, pradaxa, lovenox, etc do NOT take NSAIDS as this may increase your bleeding risk. You may be eligible to use a topical nsaid which can be found at your local drug store but we advise you first check with your fisheries technical officer, primary care, or vascular provider before doing so. If you cannot take a NSAID, you may take Acetaminophen (as called Tylenol) 500 to 1,000mg every 8 hours as needed for pain. Do not take more than 3,000mg of Acetaminophen in a 24 hour period. Please use caution when taking other medications that may also contain Acetaminophen (Excedrin, Vicodin, Percocet for example) as these contribute to the maximum daily dose of Acetaminophen. If you have an allergy to Acetaminophen (Tylenol) or have liver disease do NOT take Acetaminophen. documented in this encounter [facility] 10-11-2023 Note HNO ID: [id number] Author: JOHNNY ANTONIO PA-C Service: ? Author Type: Physician Support Service Tech Type: Progress Notes Filed: 10/11/2023 09:49 Note Text: DATE OF PROCEDURE: September 30, 2023 OPERATION: 1. Left knee arthroscopy and partial lateral meniscectomy 2. Diagnostic arthroscopy 3. Examination under anesthesia. Interval history: Wilder Gibson returns today status post left knee surgery. The patient reports resolution of his preoperative knee pain. He does have some distal thigh pain that is intermittent. This pain occurs when rising from a seated position and will then resolve without intervention. He has begun physical therapy and booster. The patient denies fever, chest pain, shortness of breath, or calf pain. Review of Systems: CV: No chest pain Pulm: No short of breath HEENT: No head ache General: no fevers, chills, nausea/vomiting, malaise Physical Examination: This is a well appearing, well nourished patient in no acute distress. Head is normocephalic and atraumatic. White sclera and pink conjunctiva. Mucous membranes are moist. Breathes easily and has normal chest wall excursion. Affect is normal. Left knee: There is a trace effusion present. The patient is able for straight leg raise. Active range of motion 0-130 degrees. Incision sites are well-approximated no clinical signs of infection. Examination of the distal aspect the left thigh reveals no obvious deformity or ecchymosis. Palpation of the distal aspect of the left thigh reveals no significant tenderness or deformity. Bilateral calves are soft and nontender to palpation. Negative Homans' sign. Imaging: There is no imaging to review during this encounter. Impression: Wilder Gibson is a 43 year old male, who is 11 days status post left partial lateral meniscectomy. There is no concern postop infection or DVT. The patient's distal quad soreness is muscular in nature and likely due to the leg schmidt used during surgery. The patient is told this will improve over time. Plan: 1. The patient's steri strips are changed today. Postoperative incision care was reviewed. 2. Continue to utilize oral NSAIDs as needed. 3. The patient is encouraged to continue physical therapy. 4. The patient will follow up with Dr. Orlando approximately 1 month following surgery. Radiographs will not be required for this appointment. Johnny Antonio PA-C I spent a total of 30 minutes on the date of the service which included preparing to see the patient, [id number] patient care, and completing clinical documentation. [facility] 10-11-2023 History of Presen t illness Narrative DATE OF PROCEDURE: September 30, 2023 OPERATION: 1. Left knee arthroscopy and partial lateral meniscectomy 2. Diagnostic arthroscopy 3. Examination under anesthesia. Interval history: Wilder Gibson returns today status post left knee surgery. The patient reports resolution of his preoperative knee pain. He does have some distal thigh pain that is intermittent. This pain occurs when rising from a seated position and will then resolve without intervention. He has begun physical therapy and booster. The patient denies fever, chest pain, shortness of breath, or calf pain. Review of Systems: CV: No chest pain Pulm: No short of breath HEENT: No head ache General: no fevers, chills, nausea/vomiting, malaise Physical Examination: This is a well appearing, well nourished patient in no acute distress. Head is normocephalic and atraumatic. White sclera and pink conjunctiva. Mucous membranes are moist. Breathes easily and has normal chest wall excursion. Affect is normal. Left knee: There is a trace effusion present. The patient is able for straight leg raise. Active range of motion 0-130 degrees. Incision sites are well-approximated no clinical signs of infection. Examination of the distal aspect the left thigh reveals no obvious deformity or ecchymosis. Palpation of the distal aspect of the left thigh reveals no significant tenderness or deformity. Bilateral calves are soft and nontender to palpation. Negative Homans' sign. Imaging: There is no imaging to review during this encounter. Impression: Wilder Gibson is a 43 year old male, who is 11 days status post left partial lateral meniscectomy. There is no concern postop infection or DVT. The patient's distal quad soreness is muscular in nature and likely due to the leg schmidt used during surgery. The patient is told this will improve over time. Plan: 1. The patient's steri strips are changed today. Postoperative incision care was reviewed. 2. Continue to utilize oral NSAIDs as needed. 3. The patient is encouraged to continue physical therapy. 4. The patient will follow up with Dr. Orlando approximately 1 month following surgery. Radiographs will not be required for this appointment. Johnny Antonio PA-C I spent a total of 30 minutes on the date of the service which included preparing to see the patient, [id number] patient care, and completing clinical documentation. documented in this encounter [facility] 10-02-2023 Note HNO ID: [id number] Author: JOHNNY ANTONIO PA-C Service: ? Author Type: Physician Support Service Tech Type: Progress Notes Filed: 10/02/2023 13:13 Note Text: The patient underwent a left partial lateral meniscectomy with Dr. Orlando on 09/30/23. Postoperative physical therapy orders placed. [facility] 10-02-2023 History of Presen t illness Narrative The patient underwent a left partial lateral meniscectomy with Dr. Orlando on 09/30/23. Postoperative physical therapy orders placed. documented in this encounter [facility] 09-30-2023 Note HNO ID: [id number] Author: NAVNEET MENDOZA AA Service: ? Author Type: Siderographist Type: Anesthesia Procedure Notes Filed: 09/30/2023 12:45 Note Text: ANESTHESIOLOGY PROCEDURE NOTE Airway General Information Procedure Start Time/Medication Administration: 09/30/2023 12:19 PM Procedure End Time: 09/30/2023 12:19 PM Staffing Anesthesiologist: Ivet Cordoba MD CAA: Navneet Mendoza AA Performed by: anesthesiologist Indications and Patient Condition Indications for airway management: anesthesia Preoxygenated: yes anesthesia circuit Patient position: sniffing Final Airway Details Final airway type: supraglottic airway Number of attempts at approach: 1 Final Supraglottic Airway: i-gel Size 4 Seal Adequate: yes SIGNATURE: NELSON Torre PATIENT NAME: Wilder Gibson DATE: September 30, 2023 TIME: 12:45 PM CSN: [id number] [facility] 09-30-2023 Note HNO ID: [id number] Author: JOHNNY ANTONIO PA-C Service: ? Author Type: Physician Support Service Tech Type: Progress Notes Filed: 09/30/2023 11:16 Note Text: Patient to have surgery today with Dr. Orlando. Patient states he does not tolerate Percocet. He has used Elgin in the past without adverse events. Will utilize Elgin as part of patient's postoperative pain control. [facility] 09-18-2023 Instructions Darin Flanagan APRN.FINAL ASSEMBLER - 09/18/2023 7:46 PM EDT PATIENT PREOPERATIVE INSTRUCTIONS Prudence Orlando MD has scheduled you for your procedure at this surgery center: [facility]: [phone] --[phone] [address]. Please read below carefully for your personalized instructions. Dietary Restrictions: - No solid food after midnight. - You may have 12 ounces of clear liquids (water, clear juices such as apple juice or gatorade, carbonated beverages, clear tea, black coffee, jello) until 2 hours before scheduled arrival at facility. Medications: Unless instructed differently below, stay on all of your medications until your surgery. If you start any new medications after today's visit, please contact your surgeon. Pre-Surgery Med Instructions Medication Instructions OMEPRAZOLE ORAL Take the day of surgery with a small sip of water montelukast sodium (SINGULAIR ORAL) cholecalciferol (VITAMIN D3) 50,000 units capsule BUDESONIDE ORAL losartan potassium (LOSARTAN ORAL) Do not take for 24 hours prior to surgery If you start any new medications after today's visit, please contact the surgeon's office. Blood Thinning Medications: - Stop NSAIDS (Ibuprofen, Advil, Aleve, Motrin, Celebrex, Mobic, etc.) 7 days before surgery, as directed by your surgeon. - Stop Aspirin 7 days before surgery, as directed by your surgeon. - Stop Vitamin E, ALL multi-vitamins, herbals and dietary supplements 7 days before surgery. - You may take Tylenol (Acetaminophen) or any of your pain medications that do not contain aspirin or NSAIDS as needed. Important Reminders: - Candy, mints, and tobacco products are NOT permitted the morning of surgery. - Hearing aids, dentures and glasses may be worn the morning of surgery. - NO jewelry, body piercings, makeup, hairpins or contacts are to be worn the day of surgery. If you develop symptoms such as a fever, cold, or flu, or have other changes to your health within TWO DAYS of scheduled surgery or the morning of surgery, please contact the surgery center above. Personal Belongings: -Please have photo ID and insurance cards. -If you do not have a copy of advance directives on file with us, please bring a copy with you on the day of surgery. - Leave ALL valuables and money at home or with family members. For Outpatient Procedures: - YOU MUST HAVE A RESPONSIBLE CHILDREN TEACHER TAKE YOU HOME. A LOAN ADMINISTRATOR OR MOTORS AND CONTROLS TESTER CANNOT BE MADE A RESPONSIBLE CHILDREN TEACHER. - We recommend that a responsible person stays with you overnight to take care of you. - You cannot stay in a hotel alone after outpatient surgery. You will not be permitted to have your surgery, if you do not have someone to take care of you. Arrival Time for Surgery: - The Surgery Center or hospital where you are having surgery will call the afternoon before surgery (or Saturday for Saturday surgery) with a scheduled arrival time. - If you have not heard by 4 pm, please contact the surgery center above. Please be aware that emergency situations arise, which may delay or change your surgical time. If this happens, we will notify you as soon as possible and regret any inconvenience. If you already have an Advance Directive, please fax a copy to [phone] or email to for it to be added to your chart. If you do not have an Advance Directive, you can find the appropriate form and more information at [email or web address]. We recommend that you complete the Advance Directive form found on the website and bring it with you the day of your surgery. It can be witnessed and scanned into your chart that day. Darin Flanagan APRN.FADIA documented in this encounter [facility] 09-18-2023 History and physical note HISTORY AND PHYSICAL EXAMINATION SERVICE DATE: 09/18/2023 SERVICE TIME: 7:37 PM PRIMARY CARE PHYSICIAN: No primary care provider on file. Assessment Patient has the following medical conditions which may affect juan m-operative course: Asthma Assessment: Pt reports last rescue inhaler use was several months ago. Takes Singulair nightly. Respirations easy and unlabored during [facility] video visit. Class 1 obesity due to excess calories without serious comorbidity with body mass index (BMI) of 33.0 to 33.9 in adult Assessment: Body mass index is 33.47 kg/m . GERD (gastroesophageal reflux disease) Assessment: Controlled on omeprazole, follows with PCP HTN (hypertension) Assessment: Controlled on losartan, follows with PCP Last 3 Encounter BP Readings: Date: BP: 12/20/2010 120/70 09/25/2010 140/78 09/09/2008 152/76 Bae Activity Status Index: METS: Climb a flight of stairs or walk up a hill (5.50 METs) DASI Score: 5.5 Patient denies any chest pain or undue shortness of breath with the above physical activity. Clinical Frailty Scale: 3. Well, with treated comorbid disease STOP-Bang Score: Has or is being treated for high blood pressure Male patient Denies snoring loudly Denies feeling tired, fatigued, or sleepy during the daytime Has not been observed to stop breathing or choking/gasping during sleep BMI less than or equal to 35 kg/m^2 Patient 50 years old or younger Does not have a large neck STOP-Bang Score: 2 [id number] Score: Age: <65 Sex: male CHF history: No Hypertension history: Yes Stroke/TIA/thromboembolism history: No Vascular disease history: No Diabetes history: No [id number] Score: 1 ANESTHESIA FINDINGS: Intubation History: No abnormal airway history Significant Anesthesia Considerations: none Airway History: No abnormal airway history I - PHYSICAL EVALUATION AIRWAY Patient intubated: No. Tracheostomy tube not present Mallampati: II. TM distance: >3 FB. Neck ROM: full ROM without neurological symptoms. Mouth opening: adequate. Short neck: no. Thick neck: no Otto present: no Lip Bite Test: II Microretrognathia/Micronagthia/R ecessed Chin: No DENTAL Dental findings: teeth intact. II - ANESTHESIA PLAN Anesthetic plan additional comments: *PACC/TCI - anesthesia choice. Beta Cherelle Monitoring Plan Post Procedure Analgesic Plan Prepared for Surgery: optimally prepared for surgery. Labs/EKG not indicated per [facility] protocol. CONSULTS: Patient does not require consults for optimization at this time Planned Anesthetic: anesthesia choice The Following Tests/Procedures Have Been Initiated: No orders placed. This is a virtual visit using [employer] video visit. It required patient-provider interaction for the medical decision making as documented below. REASON FOR VISIT: Wilder Gibson is a 43 year old male who is scheduled for Procedure(s) with comments: ARTHROSCOPY KNEE MENISCECTOMY MEDIAL OR LATERAL (Left) - left knee arthroscopy and partial lateral meniscectomy. at the request of Dr. Prudence Orlando for consultation. My final recommendation will be communicated back to the requesting physician by way of shared medical record or letter. Subjective The patient has the following: ACTIVE PROBLEM LIST Sprain of Cruciate Ligament of Knee Other Tear of Cartilage Or Meniscus of Knee, Current Scrotal Varices Reflux Fertility Testing Class 1 Obesity Due to Excess Calories Without Serious Comorbidity With Body Mass Index (Bmi) of 33.0 to 33.9 in Adult Htn (Hypertension) Asthma Gerd (Gastroesophageal Reflux Disease) COVID-19 Immunization Status Overdue - Covid-19 Vaccine ( season) Overdue since 01/11/2023 04/11/2021 Imm Admin: COVID-19 original vaccine, full dose, monovalent (MODERNA) 03/14/2021 Imm Admin: COVID-19 original vaccine, full dose, monovalent (MODERNA) CHIEF COMPLAINT: Pre-op evaluation HPI: This 43 year old male is scheduled for the above procedure and presents to the [facility] virtually for pre-operative examination. Patient reports chronic left knee pain that has been present since a fall on ice while hunting in May 2023. Denies fevers, chills, nausea, vomiting, abdominal pain, chest pain, and SOB. This is a virtual visit. The visit was conducted using [employer] video visit. It required patient-provider interaction for the medical decision making as documented below. I have communicated my name and active licensure. The patient's identity and physical location were verified at the time of this visit. Either the patient or their legal disability representative has been informed of the risks and benefits of and alternatives to treatment through a remote evaluation and consents to proceed with the evaluation remotely. REVIEW OF SYSTEMS: General: +Obesity Negative for: malaise and fever. Neurological: No history of TIA's, stroke, JAVA GOLDEN GATE DEVELOPER tumor, impaired sensorium, hemiplegia, paraplegia or quadraplegia. No neurological symptoms or problems. Respiratory: Positive for: asthma (last rescue inhaler use several months ago). Negative for: COPD, current cough, pneumonia within 6 weeks and obstructive sleep apnea. Cardiovascular: Positive for: hypertension Negative for: AICD/PPM, angina, anticoagulation therapy, arrhythmia, atrial fibrillation, CAD, chest pain, CHF, congenital heart defect, DVT/PE, hyperlipidemia, recent CO, murmur/valvular heart disease, PTCA, PVD, open heart surgery and valve surgery. GI: Positive for: GERD Negative for: abdominal pain, inflammatory bowel disease, liver disease and ETOH >2 drinks/day. : No history of dysuria, frequency or incontinence, stones or chronic kidney disease. No difficulty urinating, nocturia > 1 time per night or hematuria. Endocrine: No history of diabetes. Has not taken steroids within the past 30 days. No history of endocrinological symptoms or problems. Hematology: No history of bleeding or clotting disorder. Patient is not taking anti-coagulation or platelet medications. No history of hematological symptoms or problems. Oncology: No history of CA metastasis, chemo within 30 days, or radiotherapy within 90 days. No history of oncological symptoms or problems. Psych: No history of psychiatric symptoms or problems. Musculoskeletal: See HPI. Positive for: joint pain. Skin: Negative for lesions, rash and itching. PAST MEDICAL HISTORY Diagnosis Date Reflux PAST SURGICAL HISTORY Procedure Laterality Date APPENDECTOMY ARTHROSCOPY KNEE DIAGNOSTIC W/WO SYNOVIAL BX SPX [id number] Arthroscopy, knee- left FAMILY HISTORY Problem Relation Age of Onset None Mother Hypertension Father Diabetes Father None Sister Clotting Disorder No Family History Anesthesia Problems No Family History Malig Hyperthermia No Family History Social History Tobacco Use Smoking status: Never Smokeless tobacco: Former Types: Chew Quit date: 07/11/2010 Substance Use Topics Alcohol use: Not Currently Drug use: Not Currently Prior to Admission medications as of 09/18/231936 Medication Sig Last Dose Taking OMEPRAZOLE ORAL Take by mouth. Taking Yes montelukast sodium (SINGULAIR ORAL) Take by mouth. Taking Yes cholecalciferol (VITAMIN D3) 50,000 units capsule Take by mouth one time only. Taking Yes BUDESONIDE ORAL Take by mouth. Taking Yes losartan potassium (LOSARTAN ORAL) Take by mouth. Taking Yes No medication comments found. ALLERGIES Allergen Reactions Percocet [Oxycodone* Patient states eye roll up Objective PHYSICAL EXAM: (if completed, exam performed via video enabled technology) General: obese. Alert and appropriate; in no acute distress; well-hydrated; well-nourished; happy, smiling, interactive. Skin: normal color, no rash or lesions. HEENT: Normocephalic; no abnormality or lesions noted. No ocular injection; visual acuity is grossly normal. Hearing grossly normal. Mucous membranes moist and pink. Full neck ROM, no cervical lymph nodes noted. Cardiovascular: Capillary refill < 3 seconds in BL upper extremities. Respiratory: Breathing non-labored. Equal chest rise with normal respiratory effort. Abdomen: No tenderness upon patient self palpation of abdomen. Extremities: No obvious deficit. Neurological: No obvious deficit. PAIN ASSESSMENT: VITALS: Ht 5' 11[pt reported[ (1.80m) Wt 240 lb (108.9kg) BMI 33.49 kg/(m^2). Diagnostic tests reviewed for today's visit: Lab Value Units Date High Low HB No results within date range. HCT No results within date range. WBC No results within date range. PLT No results within date range. NA No results within date range. K No results within date range. GLUC No results within date range. BUN No results within date range. CREAT No results within date range. PTSEC No results within date range. INR No results within date range. APTT No results within date range. ALT No results within date range. AST No results within date range. TBILI No results within date range. TSH No results within date range. Lab Value Units Date High Low HCGQT No results within date range. UHCG No results within date range. HCG, BODY* No results within date range. Lab Value Units Date High Low ABORHD No results within date range. ABSCREEN No results within date range. No results found for: HBA1C No results found for this or any previous visit (from the past 8760 hour(s)). No results found for this or any previous visit (from the past 72072 hour(s)). Instructions Given to Patient: Patient given verbal instructions and voices comprehension and compliance. Copy sent electronically via My Chart, email, or mobile device. I spent a total of 16 minutes on the date of the service which included preparing to see the patient, [id number] patient care, completing clinical documentation, obtaining and/or reviewing separately obtained history, performing a medically appropriate examination, and counseling and educating the patient/family/caregiver This is a virtual visit. It required patient-provider interaction for the medical decision making as documented above. SIGNATURE: Darin Flanagan APRN.CNP PATIENT NAME: Wilder Gibson DATE: September 18, 2023 TIME: 7:37 PM PAGER/CONTACT #: [facility] 09-18-2023 History and physical note HISTORY AND PHYSICAL EXAMINATION SERVICE DATE: 09/18/2023 SERVICE TIME: 7:37 PM PRIMARY CARE PHYSICIAN: No primary care provider on file. Assessment Patient has the following medical conditions which may affect juan m-operative course: Asthma Assessment: Pt reports last rescue inhaler use was several months ago. Takes Singulair nightly. Respirations easy and unlabored during [facility] video visit. Class 1 obesity due to excess calories without serious comorbidity with body mass index (BMI) of 33.0 to 33.9 in adult Assessment: Body mass index is 33.47 kg/m . GERD (gastroesophageal reflux disease) Assessment: Controlled on omeprazole, follows with PCP HTN (hypertension) Assessment: Controlled on losartan, follows with PCP Last 3 Encounter BP Readings: Date: BP: 12/20/2010 120/70 09/25/2010 140/78 09/09/2008 152/76 Bae Activity Status Index: METS: Climb a flight of stairs or walk up a hill (5.50 METs) DASI Score: 5.5 Patient denies any chest pain or undue shortness of breath with the above physical activity. Clinical Frailty Scale: 3. Well, with treated comorbid disease STOP-Bang Score: Has or is being treated for high blood pressure Male patient Denies snoring loudly Denies feeling tired, fatigued, or sleepy during the daytime Has not been observed to stop breathing or choking/gasping during sleep BMI less than or equal to 35 kg/m^2 Patient 50 years old or younger Does not have a large neck STOP-Bang Score: 2 [id number] Score: Age: <65 Sex: male CHF history: No Hypertension history: Yes Stroke/TIA/thromboembolism history: No Vascular disease history: No Diabetes history: No [id number] Score: 1 ANESTHESIA FINDINGS: Intubation History: No abnormal airway history Significant Anesthesia Considerations: none Airway History: No abnormal airway history I - PHYSICAL EVALUATION AIRWAY Patient intubated: No. Tracheostomy tube not present Mallampati: II. TM distance: >3 FB. Neck ROM: full ROM without neurological symptoms. Mouth opening: adequate. Short neck: no. Thick neck: no Otto present: no Lip Bite Test: II Microretrognathia/Micronagthia/R ecessed Chin: No DENTAL Dental findings: teeth intact. II - ANESTHESIA PLAN Anesthetic plan additional comments: *PACC/TCI - anesthesia choice. Beta Cherelle Monitoring Plan Post Procedure Analgesic Plan Prepared for Surgery: optimally prepared for surgery. Labs/EKG not indicated per [facility] protocol. CONSULTS: Patient does not require consults for optimization at this time Planned Anesthetic: anesthesia choice The Following Tests/Procedures Have Been Initiated: No orders placed. This is a virtual visit using Likehack video visit. It required patient-provider interaction for the medical decision making as documented below. REASON FOR VISIT: Wilder Gibson is a 43 year old male who is scheduled for Procedure(s) with comments: ARTHROSCOPY KNEE MENISCECTOMY MEDIAL OR LATERAL (Left) - left knee arthroscopy and partial lateral meniscectomy. at the request of Dr. Prudence Orlando for consultation. My final recommendation will be communicated back to the requesting physician by way of shared medical record or letter. Subjective The patient has the following: ACTIVE PROBLEM LIST Sprain of Cruciate Ligament of Knee Other Tear of Cartilage Or Meniscus of Knee, Current Scrotal Varices Reflux Fertility Testing Class 1 Obesity Due to Excess Calories Without Serious Comorbidity With Body Mass Index (Bmi) of 33.0 to 33.9 in Adult Htn (Hypertension) Asthma Gerd (Gastroesophageal Reflux Disease) COVID-19 Immunization Status Overdue - Covid-19 Vaccine ( season) Overdue since 01/11/2023 04/11/2021 Imm Admin: COVID-19 original vaccine, full dose, monovalent (MODERNA) 03/14/2021 Imm Admin: COVID-19 original vaccine, full dose, monovalent (MODERNA) CHIEF COMPLAINT: Pre-op evaluation HPI: This 43 year old male is scheduled for the above procedure and presents to the [facility] virtually for pre-operative examination. Patient reports chronic left knee pain that has been present since a fall on ice while hunting in May 2023. Denies fevers, chills, nausea, vomiting, abdominal pain, chest pain, and SOB. This is a virtual visit. The visit was conducted using Likehack video visit. It required patient-provider interaction for the medical decision making as documented below. I have communicated my name and active licensure. The patient's identity and physical location were verified at the time of this visit. Either the patient or their legal disability representative has been informed of the risks and benefits of and alternatives to treatment through a remote evaluation and consents to proceed with the evaluation remotely. REVIEW OF SYSTEMS: General: +Obesity Negative for: malaise and fever. Neurological: No history of TIA's, stroke, [employer]ELOPER tumor, impaired sensorium, hemiplegia, paraplegia or quadraplegia. No neurological symptoms or problems. Respiratory: Positive for: asthma (last rescue inhaler use several months ago). Negative for: COPD, current cough, pneumonia within 6 weeks and obstructive sleep apnea. Cardiovascular: Positive for: hypertension Negative for: AICD/PPM, angina, anticoagulation therapy, arrhythmia, atrial fibrillation, CAD, chest pain, CHF, congenital heart defect, DVT/PE, hyperlipidemia, recent CO, murmur/valvular heart disease, PTCA, PVD, open heart surgery and valve surgery. GI: Positive for: GERD Negative for: abdominal pain, inflammatory bowel disease, liver disease and ETOH >2 drinks/day. : No history of dysuria, frequency or incontinence, stones or chronic kidney disease. No difficulty urinating, nocturia > 1 time per night or hematuria. Endocrine: No history of diabetes. Has not taken steroids within the past 30 days. No history of endocrinological symptoms or problems. Hematology: No history of bleeding or clotting disorder. Patient is not taking anti-coagulation or platelet medications. No history of hematological symptoms or problems. Oncology: No history of CA metastasis, chemo within 30 days, or radiotherapy within 90 days. No history of oncological symptoms or problems. Psych: No history of psychiatric symptoms or problems. Musculoskeletal: See HPI. Positive for: joint pain. Skin: Negative for lesions, rash and itching. PAST MEDICAL HISTORY Diagnosis Date Reflux PAST SURGICAL HISTORY Procedure Laterality Date APPENDECTOMY ARTHROSCOPY KNEE DIAGNOSTIC W/WO SYNOVIAL BX SPX [id number] Arthroscopy, knee- left FAMILY HISTORY Problem Relation Age of Onset None Mother Hypertension Father Diabetes Father None Sister Clotting Disorder No Family History Anesthesia Problems No Family History Malig Hyperthermia No Family History Social History Tobacco Use Smoking status: Never Smokeless tobacco: Former Types: Chew Quit date: 07/11/2010 Substance Use Topics Alcohol use: Not Currently Drug use: Not Currently Prior to Admission medications as of 09/18/231936 Medication Sig Last Dose Taking OMEPRAZOLE ORAL Take by mouth. Taking Yes montelukast sodium (SINGULAIR ORAL) Take by mouth. Taking Yes cholecalciferol (VITAMIN D3) 50,000 units capsule Take by mouth one time only. Taking Yes BUDESONIDE ORAL Take by mouth. Taking Yes losartan potassium (LOSARTAN ORAL) Take by mouth. Taking Yes No medication comments found. ALLERGIES Allergen Reactions Percocet [Oxycodone* Patient states eye roll up Objective PHYSICAL EXAM: (if completed, exam performed via video enabled technology) General: obese. Alert and appropriate; in no acute distress; well-hydrated; well-nourished; happy, smiling, interactive. Skin: normal color, no rash or lesions. HEENT: Normocephalic; no abnormality or lesions noted. No ocular injection; visual acuity is grossly normal. Hearing grossly normal. Mucous membranes moist and pink. Full neck ROM, no cervical lymph nodes noted. Cardiovascular: Capillary refill < 3 seconds in BL upper extremities. Respiratory: Breathing non-labored. Equal chest rise with normal respiratory effort. Abdomen: No tenderness upon patient self palpation of abdomen. Extremities: No obvious deficit. Neurological: No obvious deficit. PAIN ASSESSMENT: VITALS: Ht 5' 11[pt reported[ (1.80m) Wt 240 lb (108.9kg) BMI 33.49 kg/(m^2). Diagnostic tests reviewed for today's visit: Lab Value Units Date High Low HB No results within date range. HCT No results within date range. WBC No results within date range. PLT No results within date range. NA No results within date range. K No results within date range. GLUC No results within date range. BUN No results within date range. CREAT No results within date range. PTSEC No results within date range. INR No results within date range. APTT No results within date range. ALT No results within date range. AST No results within date range. TBILI No results within date range. TSH No results within date range. Lab Value Units Date High Low HCGQT No results within date range. UHCG No results within date range. HCG, BODY* No results within date range. Lab Value Units Date High Low ABORHD No results within date range. ABSCREEN No results within date range. No results found for: HBA1C No results found for this or any previous visit (from the past 8760 hour(s)). No results found for this or any previous visit (from the past 10477 hour(s)). Instructions Given to Patient: Patient given verbal instructions and voices comprehension and compliance. Copy sent electronically via My Chart, email, or mobile device. I spent a total of 16 minutes on the date of the service which included preparing to see the patient, [id number] patient care, completing clinical documentation, obtaining and/or reviewing separately obtained history, performing a medically appropriate examination, and counseling and educating the patient/family/caregiver This is a virtual visit. It required patient-provider interaction for the medical decision making as documented above. SIGNATURE: Darin Flanagan APRN.CNP PATIENT NAME: Wilder Gibson DATE: September 18, 2023 TIME: 7:37 PM PAGER/CONTACT #: documented in this encounter [facility] 09-10-2023 Telephone encounter Note Spoke with patient on phone. DOS agreed on 09/30/2023. Discussed preop instructions and the need for [facility] appt. Patient agreed to purchase Hibiclens OTC. Directions for use reviewed. PT location outside [facility] at [facility] in [facility]. Advised patient will fax consult and request to schedule PT appt, but advised patient to call there to schedule. Patient has crutches and was advised to bring on DOS. Patient stated his [place] paperwork will need completed by 09/18/2023. He works at [employer]. All questions addressed at this time. [facility] ph [phone]; fax [phone]. Aisha Hampton RN [facility] 09-10-2023 Miscellaneous Notes Spoke with patient on phone. DOS agreed on 09/30/2023. Discussed preop instructions and the need for [facility] appt. Patient agreed to purchase Hibiclens OTC. Directions for use reviewed. PT location outside [facility] at [facility] in [facility]. Advised patient will fax consult and request to schedule PT appt, but advised patient to call there to schedule. Patient has crutches and was advised to bring on DOS. Patient stated his FMLA paperwork will need completed by 09/18/2023. He works at [employer]. All questions addressed at this time. [facility] ph [phone]; fax [phone]. Aisha Hampton RN Patient calling to schedule surgery. documented in this encounter [facility] 09-10-2023 Telephone encounter Note Patient calling to schedule surgery. [facility] 09-06-2023 Note HNO ID: [id number] Author: PRUDENCE ORLANDO MD Service: ? Author Type: Physician Type: Progress Notes Filed: 09/06/2023 15:10 Note Text: DATE OF SURGERY: 09/26/2004 SURGEON: Samm Olson M.D. OPERATION: 1. Left knee arthroscopy. 2. ACL reconstruction with auto autologous semitendinosus and gracilis grafts. 3. Left knee lateral meniscal debridement. Attending Attestation: I have seen and evaluated this patient. I agree with the impression and plan of care as outlined in the Fellow's note. Unstable lateral meniscus tear. I have discussed the risks, benefits, alternative procedures, expected outcomes and the length of convalescence. We have also discussed operative versus nonoperative management. Wilder Gibson understands and would like to proceed with surgical intervention. The plan will be for left knee arthroscopy and partial lateral meniscectomy. No nerve block. No antiobiotics. Shaver blades available but not opened. Dyonics leg schmidt and stirrup. Prudence Orlando MD [facility] Orthopaedic Surgery and Sports Medicine [facility] Sports Medicine timber management professor [facility] Objective C Developer, Orthopaedic Sports Medicine Fellowship [facility] Orthopaedic and Rheumatologic [place] [facility] 09-06-2023 History of Presen t illness Narrative Images from the original note were not included. DATE OF SURGERY: 09/26/2004 SURGEON: Samm Olson M.D. OPERATION: 1. Left knee arthroscopy. 2. ACL reconstruction with auto autologous semitendinosus and gracilis grafts. 3. Left knee lateral meniscal debridement. Attending Attestation: I have seen and evaluated this patient. I agree with the impression and plan of care as outlined in the Fellow's note. Unstable lateral meniscus tear. I have discussed the risks, benefits, alternative procedures, expected outcomes and the length of convalescence. We have also discussed operative versus nonoperative management. Wilder Gibson understands and would like to proceed with surgical intervention. The plan will be for left knee arthroscopy and partial lateral meniscectomy. No nerve block. No antiobiotics. Shaver blades available but not opened. Dyonics leg schmidt and stirrup. Prudence Orlando MD [facility] Orthopaedic Surgery and Sports Medicine [facility] Sports Medicine timber management professor [facility] Objective C Developer, Orthopaedic Sports Medicine Fellowship [facility] Orthopaedic and Rheumatologic [place] New Patient appointment History of present illness: Wilder Gibson is a 43 year old male who comes in today with a chief complaint of left knee pain. The pain is located laterally. This pain has been present for 3 months. This pain occurred with the following preceding injury: Fell on ice while hunting in May . There is pain with squatting. There is not pain at night. Patient has No swelling. There is popping/clicking. There is not locking. There is giving way. Prior treatment history of left ACL reconstruction with partial lateral meniscectomy by Dr. Olson in 2004. Occupation: [employer] Sports/recreational activity/relevant hobbies: hunting, fishing, farming ALLERGIES Allergen Reactions Percocet [Oxycodone* Patient states eye roll up PAST MEDICAL HISTORY Diagnosis Date Reflux PAST SURGICAL HISTORY Procedure Laterality Date APPENDECTOMY ARTHROSCOPY KNEE DIAGNOSTIC W/WO SYNOVIAL BX SPX [id number] Arthroscopy, knee- left Current Outpatient Medications on File Prior to Visit Medication Sig Ibuprofen 200 mg ORAL Cap Take by mouth. (Patient not taking: Reported on 09/06/2023) acetaminophen (TYLENOL EXTRA STRENGTH) 500 mg ORAL tablet Take 500 mg by mouth every 6 hours as needed. (Patient not taking: Reported on 09/06/2023) NEXIUM 40 MG CAP as necessary (Patient not taking: Reported on 09/06/2023) No current facility-administered medications on file prior to visit. FAMILY HISTORY Problem Relation Age of Onset Hypertension Father Diabetes Father None Mother None Sister Social History Tobacco Use Smoking status: Never Smokeless tobacco: Former Types: Chew Quit date: 07/11/2010 Review of Systems: CV: No chest pain Pulm: No short of breath HEENT: No head ache General: no fevers, chills, nausea/vomiting, malaise Physical Examination: This is a well appearing, well nourished patient in no acute distress. Patient's head is normocephalic and atraumatic. Patient has white sclera and pink conjunctiva. Mucous membranes are moist. Patient breathes easily and has normal chest wall excursion. Patient has a Normal. affect. Body habitus normal . Focused exam of the knee: Normal. gait. Knee alignment: neutral . Flexion contracture: None. Range of motion is 0/0/130 . There is pain with patellofemoral compression. There is not pain along patellar facets. No effusion. There is not quadriceps atrophy. There is not patellofemoral crepitance. There is not medial joint line pain on palpation. There is lateral joint line pain on palpation. Ligamentous exam is negative . Mervin's positive . Ipsilateral hip exam: There is good range of motion of the ipsilateral hip. No significant pain or restrictions with range of motion or log-rolling. Good strength. Normal stability. Negative straight leg raise. Contralateral knee exam: Examination of the contralateral knee reveals that there is normal stability, strength, range of motion and no pain on palpation. There is no significant effusion. Sensation grossly intact. Imaging: Outside MRI uploaded into [facility] was personally reviewed by me. This shows a large lateral meniscus tear involving the anterior horn and body with an unstable flap in the center of the lateral compartment Procedure: None Impression: Wilder Gibson is a 43 year old male with unstable lateral meniscus tear, we discussed treatment options. Given his mechanical symptoms and duration of symptoms as well as appearance on imaging, we would recommend operative management of this. Risk and benefits of the procedure were discussed and informed sent was obtained. Plan will be for left knee arthroscopy with partial lateral meniscectomy. Plan: 1. Return to clinic after surgery. 2. Physical therapy recommendation: None 3. Pharmacologic treatment: None Caryl Javier MD documented in this encounter [facility] 09-06-2023 Note HNO ID: [id number] Author: CARYL JAVIER MD Service: ? Author Type: Fellow Type: Progress Notes Filed: 09/06/2023 15:10 Note Text: New Patient appointment History of present illness: Wilder Gibson is a 43 year old male who comes in today with a chief complaint of left knee pain. The pain is located laterally. This pain has been present for 3 months. This pain occurred with the following preceding injury: Fell on ice while hunting in May . There is pain with squatting. There is not pain at night. Patient has No swelling. There is popping/clicking. There is not locking. There is giving way. Prior treatment history of left ACL reconstruction with partial lateral meniscectomy by Dr. Olson in 2004. Occupation: [employer] Sports/recreational activity/relevant hobbies: hunting, fishing, farming ALLERGIES Allergen Reactions Percocet [Oxycodone* Patient states eye roll up PAST MEDICAL HISTORY Diagnosis Date Reflux PAST SURGICAL HISTORY Procedure Laterality Date APPENDECTOMY ARTHROSCOPY KNEE DIAGNOSTIC W/WO SYNOVIAL BX SPX [id number] Arthroscopy, knee- left Current Outpatient Medications on File Prior to Visit Medication Sig Ibuprofen 200 mg ORAL Cap Take by mouth. (Patient not taking: Reported on 09/06/2023) acetaminophen (TYLENOL EXTRA STRENGTH) 500 mg ORAL tablet Take 500 mg by mouth every 6 hours as needed. (Patient not taking: Reported on 09/06/2023) NEXIUM 40 MG CAP as necessary (Patient not taking: Reported on 09/06/2023) No current facility-administered medications on file prior to visit. FAMILY HISTORY Problem Relation Age of Onset Hypertension Father Diabetes Father None Mother None Sister Social History Tobacco Use Smoking status: Never Smokeless tobacco: Former Types: Chew Quit date: 07/11/2010 Review of Systems: CV: No chest pain Pulm: No short of breath HEENT: No head ache General: no fevers, chills, nausea/vomiting, malaise Physical Examination: This is a well appearing, well nourished patient in no acute distress. Patient's head is normocephalic and atraumatic. Patient has white sclera and pink conjunctiva. Mucous membranes are moist. Patient breathes easily and has normal chest wall excursion. Patient has a Normal. affect. Body habitus normal . Focused exam of the knee: Normal. gait. Knee alignment: neutral . Flexion contracture: None. Range of motion is 0/0/130 . There is pain with patellofemoral compression. There is not pain along patellar facets. No effusion. There is not quadriceps atrophy. There is not patellofemoral crepitance. There is not medial joint line pain on palpation. There is lateral joint line pain on palpation. Ligamentous exam is negative . Mervin's positive . Ipsilateral hip exam: There is good range of motion of the ipsilateral hip. No significant pain or restrictions with range of motion or log-rolling. Good strength. Normal stability. Negative straight leg raise. Contralateral knee exam: Examination of the contralateral knee reveals that there is normal stability, strength, range of motion and no pain on palpation. There is no significant effusion. Sensation grossly intact. Imaging: Outside MRI [facility] was personally reviewed by me. This shows a large lateral meniscus tear involving the anterior horn and body with an unstable flap in the center of the lateral compartment Procedure: None Impression: Wilder Gibson is a 43 year old male with unstable lateral meniscus tear, we discussed treatment options. Given his mechanical symptoms and duration of symptoms as well as appearance on imaging, we would recommend operative management of this. Risk and benefits of the procedure were discussed and informed sent was obtained. Plan will be for left knee arthroscopy with partial lateral meniscectomy. Plan: 1. Return to clinic after surgery. 2. Physical therapy recommendation: None 3. Pharmacologic treatment: None Caryl Javier MD [facility] 08-29-2023 Telephone encounter Note Spoke with patient. Patient stated he has his MRI at [facility]. Advised will need this overnighted to the office to review before clinic appt on 09/05. Stated will call [facility] to have written report faxed. Aisha Hampton RN [facility] 08-29-2023 Miscellaneous Notes Spoke with patient. Patient stated he has his MRI at [facility]. Advised will need this overnighted to the office to review before clinic appt on 09/05. Stated will call [facility] to have written report faxed. Aisha Hampton RN Left message for patient on voice mail. Advised he has appt next Sat with Dr Orlando. Inquired if patient can overnight ([employer]Ex) the CDs or call and let the office know where the images were taken. The office can call and see if the images of MRI can be pushed electronically. Also will need written MRI report scanned to chart. Requested a call back. Aisha Hampton RN documented in this encounter [facility] 08-29-2023 Telephone encounter Note Left message for patient on voice mail. Advised he has appt next Sat with Dr Orlando. Inquired if patient can overnight ([employer]) the CDs or call and let the office know where the images were taken. The office can call and see if the images of MRI can be pushed electronically. Also will need written MRI report scanned to chart. Requested a call back. Aisha Hampton, RN [facility] Evaluation note No assessment inform ation available Work Phone: Evaluation note Diagnosis Chronic pain of left knee- Primary Pain in joint, lower leg [facility] Diagnosis Chronic pain of left knee- Primary Pain in joint, lower leg Chronic pain of left knee Pain in joint, lower leg [facility] Diagnosis Pre-op evaluation- Primary Preoperative examination, unspecified Chronic pain of left knee Pain in joint, lower leg Class 1 obesity due to excess calories without serious comorbidity with body mass index (BMI) of 33.0 to 33.9 in adult Hypertension, unspecified type Asthma, unspecified asthma severity, unspecified whether complicated, unspecified whether persistent Gastroesophageal reflux disease, unspecified whether esophagitis present Chronic pain of left knee Pain in joint, lower leg * Assessment & Plan Note - Darin Flanagan APRN.CNP - 09/18/2023 7:49 PM EDT Associated Problem(s): HTN (hypertension) Assessment: Controlled on losartan, follows with PCP Last 3 Encounter BP Readings: Date: BP: 12/20/2010 120/70 09/25/2010 140/78 09/09/2008 152/76 * Assessment & Plan Note - Darin Flanagan APRN.CNP - 09/18/2023 7:49 PM EDT Associated Problem(s): GERD (gastroesophageal reflux disease) Assessment: Controlled on omeprazole, follows with PCP * Assessment & Plan Note - Darin Flanagan APRN.CNP - 09/18/2023 7:49 PM EDT Associated Problem(s): Class 1 obesity due to excess calories without serious comorbidity with bodymass index (BMI) of 33.0 to 33.9 in adult Assessment: Body mass index is 33.47 kg/m . * Assessment & Plan Note - Darin Flanagan APRN.CNP - 09/18/2023 7:49 PM EDT Associated Problem(s): Asthma Assessment: Pt reports last rescue inhaler use was several months ago. Takes Singulair nightly. Respirations easy and unlabored during [facility] video visit. [facility] Diagnosis S/P arthroscopic partial lateral meniscectomy of left knee- Primary [facility] Diagnosis S/P arthroscopic partial lateral meniscectomy of left knee- Primary [facility] Diagnosis S/P arthroscopic partial lateral meniscectomy of left knee- Primary [facility] ([facility]ative)No reason for referral information availableWTrumbull [facility] Work Phone: Summary Purpose Family History No Family History Records Found Relationship Condition Age at Onset Recorded Date/T get father Diabetes mellitus Unknown mother Asthma Unknown Advance Directives No Advanced Directives Records Found Advance Directive Response Recorded Date/ Time Living Will Yes February 15 1:58am Power of Youth Career Specialist Yes February 15 016 1:58am Advance Directive Response Recorded Date/ Time Living Will Yes February 15 12:58am Power of Youth Career Specialist Yes February 15 016 12:58am Advance Directive Response Recorded Date/ Time Living Will Yes April 15 10:35am Power of Youth Career Specialist Yes April 15, 2019 10:35am Advance Directive Response Recorded Date/ Time Living Will Yes April 15 9:35am Power of Youth Career Specialist Yes April 15, 2019 9:35am Chief Complaint and Reason for Visit Chief Complaint CELIAC DISEASE Chief Complaint CELIAC/VIT D DEFICIE NCY ABNORMAL EKG ABNORMAL EKG Chief Complaint CELIAC/VIT D DEFICIE NCY ABNORMAL EKG ABNORMAL EKG EORDER Chief Complaint EORDER Chief Complaint Admit Date RT LEG SWOLLEN/PAIN July 29, 2024 3:0 6pm Reason for Referral Specialty Diagnoses / Procedures Referred By Kristi gonzalez Referred To Contact Diagnoses Chronic pain of left knee Procedures REFER TO [facility] - PRE ANESTHESIA CONSULTATION CLINIC OFFICE/OUTPATIENT [facility] MDM 60 MINUTES Johnny Antonio PA-C [address] [place] [address] Referral ID Status Reason Start Date Expiration Date Visits Requested Visits Authorized [id number] Pending Review PCP Requested Referral 09/11/2023 09/09/2024 1 1 Specialty Diagnoses / Procedures Referred By Kristi gonzalez Referred To Contact [facility] Diagnoses Chronic pain of left knee Procedures CONSULT TO PHYSICAL THERAPY PHYSICAL THERAPY EVALUATION HIGH COMPLEX 45 MINS Johnny Antonio PA-C [address] [place] [address] [facility] [place] [address] [place] [address] Referral ID Status Reason Start Date Expiration Date Visits Requested Visits Authorized [id number] Pending Review Auto-Generat ed Referral 09/11/2023 09/09/2024 1 1 Specialty Diagnoses / Procedures Referred By Kristi gonzalez Referred To Contact [facility] Diagnoses S/P arthroscopic partial lateral meniscectomy of left knee Procedures CONSULT TO PHYSICAL THERAPY PHYSICAL THERAPY EVALUATION HIGH COMPLEX 45 MINS Johnny Antonio PA-C [address] [place] [address] [facility] [place] [address] [place] [address] Referral ID Status Reason Start Date Expiration Date Visits Requested Visits Authorized [id number] Pending Review Auto-Generat ed Referral 10/02/2023 10/01/2024 1 1 Additional Source Comments (unrecognized sect ion and content) No Status Records FoundNo Status Records FoundNo Status Records FoundNo Status Records Found INFORMATION SOURCE (unrecogn ized section and content) DATE CREATED AUTHOR 06/25/2019 [facility] ([place]) DATE CREATED AUTHOR AUTHOR'S ORGANIZ ATION 10/01/2023 [facility] DATE CREATED AUTHOR AUTHOR'S ORGANIZ ATION 11/02/2023 [facility] DATE CREATED AUTHOR AUTHOR'S ORGANIZ ATION 03/20/2025 [facility] Goals (unrecognized section and content) Goals may be documented in a n alternate sectionGoals may be documented in an alternate sectionGoals may be documented in an alternate sectionGoals may be documented in an alternate sectionGoals may be documented in an alternate sectionGoals may be documented in an alternate sectionGoals may be documented in an alternate sectionGoals may be documented in an alternate sectionGoals may be documented in an alternate section Care Teams (unrecognized sec tion and content) Team Status: Active Member Role Status Dates Dr. Anna Mera MD Family Provider Active Dr. Anna Mera MD Primary Care Provider Active Team Status: Inactive Member Role Status Dates Dr. Anna Mera MD Primary Care Provider, Referrin g Provider Active Dr. Raymon Garcia MD Attending Provider Active Team Status: Active Member Role Status Dates Dr. Anna Mera MD Primary Care Provider Active Jannet Sanders PROPERTY INVESTOR, PROPERTY INVESTOR-C Referring Provider, Other Provide r Active Dr. Boston Perez MD Attending Provider Active Team Status: Inactive Member Role Status Dates Dr. Anna Mera MD Primary Care Provider Active Dr. Dmai Dc MD Attending Provider, Referring Provider Active Team Status: Inactive Member Role Status Dates Dr. Anna Mera MD Primary Care Provider Active Jannet Sanders PROPERTY INVESTOR, PROPERTY INVESTOR-C Attending Provider, Referring Pro vider Active Team Status: Active Member Role Status Dates Dr. Anna Mera MD Family Provider Active Dr. Emiliano Zimmer MD Primary Care Provider Active Team Status: Inactive Member Role Status Dates Dr. Emiliano Zimmer MD Primary Care Pr ovider, Attending Provider, Referring Provider Active Team Status: Inactive Member Role Status Dates Dr. Emiliano Zimmer MD Primary Care Provider, Attend ing Provider Active Team Status: Inactive Member Role Status Dates Dr. Emiliano Zimmer MD Primary Care Provider Active Dr. Anna Mera MD Attending Provider, Referring P rovider Active Team Status: Active Member Role Status Dates Dr. Emiliano Zimmer MD Primary Care Provider Active Team Status: Inactive Member Role Status Dates Dr. Emiliano Zimmer MD Primary Care Provider Active Start: July 29, 2024 End: July 29, 2024 Dr. Emiliano Zimmer MD Attending Provider Active Start: July 29, 2024 End: July 29, 2024 Dr. Emiliano Zimmer MD Referring Provider Active Start: July 29, 2024 End: July 29, 2024 Source Comments (unrecognize d section and content) In the event this informatio n is protected by the Federal Confidentiality of Alcohol and Drug Abuse Patient Records regulations: The Federal rules restrict any use of the information to criminally investigate or prosecute any alcohol or drug abuse patient.[facility] the event this information is protected by the Federal Confidentiality of Alcohol and Drug Abuse Patient Records regulations: The Federal rules restrict any use of the information to criminally investigate or prosecute any alcohol or drug abuse patient.[facility] HospitalIn the event this information is protected by the Federal Confidentiality of Alcohol and Drug Abuse Patient Records regulations: The Federal rules restrict any use of the information to criminally investigate or prosecute any alcohol or drug abuse patient.[facility] Hospital[facility] the event this information is protected by the Federal Confidentiality of Alcohol and Drug Abuse Patient Records regulations: The Federal rules restrict any use of the information to criminally investigate or prosecute any alcohol or drug abuse patient.[facility] HospitalIn the event this information is protected by the Federal Confidentiality of Alcohol and Drug Abuse Patient Records regulations: The Federal rules restrict any use of the information to criminally investigate or prosecute any alcohol or drug abuse patient.[facility] HospitalIn the event this information is protected by the Federal Confidentiality of Alcohol and Drug Abuse Patient Records regulations: The Federal rules restrict any use of the information to criminally investigate or prosecute any alcohol or drug abuse patient.[facility] HospitalIn the event this information is protected by the Federal Confidentiality of Alcohol and Drug Abuse Patient Records regulations: The Federal rules restrict any use of the information to criminally investigate or prosecute any alcohol or drug abuse patient.[facility] HospitalIn the event this information is protected by the Federal Confidentiality of Alcohol and Drug Abuse Patient Records regulations: The Federal rules restrict any use of the information to criminally investigate or prosecute any alcohol or drug abuse patient.[facility] HospitalIn the event this information is protected by the Federal Confidentiality of Alcohol and Drug Abuse Patient Records regulations: The Federal rules restrict any use of the information to criminally investigate or prosecute any alcohol or drug abuse patient.[facility] HospitalIn the event this information is protected by the Federal Confidentiality of Alcohol and Drug Abuse Patient Records regulations: The Federal rules restrict any use of the information to criminally investigate or prosecute any alcohol or drug abuse patient.[facility] Reason for Visit (unrecogniz ed section and content) Reason Comments Appointment Reason Comments New Specialty Diagnoses / Procedures Referred By Contact Referred To Contact Orthopedics / ORTHOPAEDIC SURGERY Diagnoses LEFT KNEE MENISCUS TEAR SURG CONSULT XR AND MRI TO BE CARRIED Procedures [facility]ORTS Self Prudence Orlando MD [address] [place] [address] Referral ID Status Reason Start Date Expiration Date Visits Re quested Visits Authorized [id number] Closed 09/06/2023 12/05/2023 1 0 Reason Comments Schedule Surgery Reason Comments Anesthesia Consult Specialty Diagnoses / Procedures Referred By Contac t Referred To Contact ANESTHESIOLOGY Diagnoses Chronic pain of left knee Procedures REFER TO PACC - PRE ANESTHESIA CONSULTATION CLINIC OFFICE/OUTPATIENT NEW HIGH MDM 60 MINUTES Johnny Antonio PA-C [address] [place] [address] Pre Anes Neil [address] [place] [place] [address] Referral ID Status Reason Start Date Expiration Date Visits Requested Visits Authorized [id number] Ref Not Required PCP Requested Referral OON/Self Pay Override 09/11/2023 09/09/2024 1 1 Reason Comments Post Op Specialty Diagnoses / Procedures Referred By Contac t Referred To Contact Orthopedics / ORTHOPAEDIC SURGERY Diagnoses Left knee injury LEFT KNEE DOS 09/30/23 5-8 DAYS POST OP Procedures OFFICE/OUTPATIENT ESTABLISHED MOD MDM 30 MIN POST OP Self Johnny Antonio PA-C [id number] [id number] Referral ID Status Reason Start Date Expiration Date Visits Re quested Visits Authorized [id number] Closed 10/11/2023 05/12/2024 1 1 Reason Comments Established Patient Post Op Specialty Diagnoses / Procedures Referred By Contact Referred To Contact Orthopedics / ORTHOPAEDIC SURGERY Diagnoses Chronic pain of left knee LEFT KNEE DOS 09/30/23 4 WKS POST OP Procedures OFFICE/OUTPATIENT ESTABLISHED MOD MDM 30 MIN POST OP Self Prudence Orlando MD [address] [place] [address] Referral ID Status Reason Start Date Expiration Date Visits Re quested Visits Authorized [id number] Closed 11/01/2023 05/12/2024 1 1 FOR RECORDS PERTAINING TO PATIENTS WHO ARE OR HAVE BEEN ENROLLED IN A CHEMICAL DEPENDENCY/SUBSTANCEABUSE PROGRAM, SOME INFORMATION MAY BE OMITTED. This clinical summary was aggregated from multiple sources. Caution should be exercised in using it in the provision of clinical care. This summary normalizes information from multiple sources, and as a consequence, information in this document may materially change the coding, format and clinical context of patient data. In addition, data may be omitted in some cases. CLINICAL DECISIONS SHOULD BE BASED ON THE PRIMARY CLINICAL RECORDS. [facility]. provides no warranty or guarantee of the accuracy or completeness of information in this document.
== END | disposition home or self-care (01) ==
LOC: MTLAB 17:00
PROVIDERS: PCP Family Medicine; Referring Provider Family Medicine; Visit Provider Family Medicine
DX: I10 Essential (primary) hypertension (principal)
CPT/HCPCS: 36415; 80053; 80061; 83735; 85025